=== PATIENT | female | born 1970 | race Caucasian/White ===

== ENCOUNTER 2020-03-15 02:09 | Emergency (ER) | payer BC, OTHER ==
[~2020-03-15] VITALS: Ht 175.3 cm; Wt 149.7 kg
[~2020-03-15 02:09] MED LIST: FERROUS SULFAT325 MG PO; GLIPIZIDE ER5 MG PO; LEVAQUIN500 MG PO; LEVOTHYROXINE200 MCG PO; LISINOPRIL10 MG PO; NORCO 7.5-3251 EACH PO
[2020-03-15] MEDS ORDERED: KETOROLAC TROMETHAMINE 30 MG/ML VIAL IV STA (02:16)
--- NOTE | 2020-03-15 02:23 | Emergency Department Note ---
History of Present Illnes History of Present Illness Chief Complaint: Back Pain History of Present Illness This is a 49 year old female presents to the ED for . Historian: Patient Duration (how long): day(s) (3) Progression: worsening Context: Denies recent illness, Denies recent surgery, Denies recent immobilization, Denies recent travel, Denies trauma/injury, Denies new medications, Denies hx of DVT/PE, Denies non-compliance w/ medications, Denies other Associated symptoms: Denies denies other symptoms, Denies confusion, Denies chest pain, Denies cough, Denies diaphoresis, Denies fever/chills, Denies headaches, Denies loss of appetite, Denies malaise, Denies nausea/vomiting, Denies rash, Denies seizure, Denies shortness of breath, Denies syncope, Denies weakness, Denies other Past Medical/Family History Physician Review I have reviewed the patient's past medical and family history. Any updates have been documented here. Past Medical History Recent Fever: No Clinical Suspicion of Infectio: No New/Unexplained Change in Ment: No Past Medical History: Diabetes, Hypothyroidism, Anemia Past Surgical History: Cholecysctectomy Social History Smoking Cessation: Never Smoker Alcohol Use: None Any Illegal Drug Use: No Other Last Tetanus: UTD Review of Systems Review of Systems Constitutional: Reports no symptoms EENTM: Reports no symptoms Cardiovascular: Reports no symptoms Respiratory: Reports no symptoms Gastrointestinal: Reports no symptoms Genitourinary: Reports pain (L flank pain) Musculoskeletal: Reports no symptoms Integumentary: Reports no symptoms Neurological: Reports no symptoms Psychological: Reports no symptoms Endocrine: Reports no symptoms Hematological/Lymphatic: Reports no symptoms Physical Exam Related Data Allergies: Coded Allergies: No Known Allergies (Unverified , 08/12/18) Triage Vital Signs Vital Signs Date Time Temp Pulse Resp B/P (MAP) Pulse Ox O2 Delivery O2 Flow Rate FiO2 03/15/20 02:17 98.3 86 20 186/93 97 Room Air Vital signs reviewed: Yes Physical Exam CONSTITUTIONAL Constitutional: Present well-developed, Present well-nourished HENT HENT: Present normocephalic, Present atraumatic, Present oropharynx clear/moist, Present nose normal HENT L/R: Present left ext ear normal, Present right ext ear normal EYES Eyes: Reports PERRL, Reports conjunctivae normal NECK Neck: Present ROM normal PULMONARY Pulmonary: Present effort normal, Present breath sounds normal CARDIOVASCULAR Cardiovascular: Present regular rhythm, Present heart sounds normal, Present capillary refill normal, Present normal rate GASTROINTESTINAL Abdominal: Present soft, Present bowel sounds normal, Present tender GENITOURINARY Genitourinary: Present exam deferred SKIN Skin: Present warm, Present dry MUSCULOSKELETAL Musculoskeletal: Present ROM normal NEUROLOGICAL Neurological: Present alert, Present oriented x 3, Present no gross motor or sensory deficits PSYCHOLOGICAL Psychological: Present mood/affect normal, Present judgement normal Results Laboratory Lab results reviewed: Yes Laboratory comments CBC : elevated WBC , CMP : Na 128 Imaging Imaging results reviewed: Yes Impressions [place] [address] Patient Name: PK JONES MR #: [id number] : 1970 Age/Sex: 49/F Req #: [id number] Adm Physician: Ordered by: MARCELLO ROMERO DO Report #: [id number] Location: ER Room/Bed: Procedure: [id number] CT/CT ABDOMEN/PELVIS WO Exam Date: 03/15/20 Exam Time: 314 REPORT STATUS: Signed EXAM: CT Abdomen and Pelvis WITHOUT contrast INDICATION: ^l flank pain ^[id number] ^[id number] COMPARISON: Right upper quadrant ultrasound dated 08/12/2018 TECHNIQUE: Abdomen and pelvis were scanned utilizing a multidetector helical scanner from the lung base to the pubic symphysis without administration of IV contrast. Absence of intravenous contrast decreases sensitivity for detection of focal lesions and vascular pathology. Coronal and sagittal reformations were obtained. Routine protocol was performed. IV CONTRAST: None ORAL CONTRAST: Water COMPLICATIONS: None RADIATION DOSE: Total DLP: 805.72 mGy*cm Estimated effective dose: (DLP x 0.015 x size factor) mSv CTDIvol has been reviewed. It is below the limits set by the Radiation Protocol Committee (RPC). FINDINGS: LINES and TUBES: None. LOWER THORAX: Numerous lung nodules, measuring up to 1.1 cm. HEPATOBILIARY: Unenhanced liver is unremarkable. Enlarged left hepatic lobe. No biliary ductal dilation. GALLBLADDER: Not visualized. SPLEEN: Splenomegaly. PANCREAS: No focal masses or ductal dilatation. ADRENALS: No adrenal nodules KIDNEYS/URETERS: No hydronephrosis. Limited for evaluation of renal parenchyma without intravenous contrast. No stones. GI TRACT: No abnormal distention, wall thickening, or evidence of bowel obstruction. Appendix is normal. PELVIC ORGANS/BLADDER: Bladder is collapsed. Uterus is enlarged and probably myomatous. LYMPH NODES: Enlarged retroperitoneal and iliac chain lymph nodes. For example 1.8 cm left para-aortic lymph node. VESSELS: Unremarkable. PERITONEUM / RETROPERITONEUM: No free air. Trace perihepatic ascites. BONES: Degenerative changes of spine. Age indeterminate mild anterior wedge deformity of T11 and T12 vertebral bodies. SOFT TISSUES: Unremarkable. IMPRESSION: 1. No nephrolithiasis or evidence of obstructive urolithiasis. 2. Suspected mild cirrhotic changes of the liver with splenomegaly and trace perihepatic ascites. Evaluation of liver parenchyma is limited without intravenous contrast. 3. Enlarged probably myomatous uterus. 4. Numerous lung nodules, measuring up to 1.1 cm. Recommend follow-up chest CT in 3 months. 5. Retroperitoneal and iliac chain lymphadenopathy which could be reactive or metastatic. Attention on follow-up examination. Signed by: Dr. Luis Kearney MD on 03/15/2020 4:07 AM Dictated By: LUIS KEARNEY MD 6 Transcribed By: KAYLEY on 03/15/20406 COPY TO: MARCELLO ROMERO DO~ Assessment & Plan Medical Decision Making MDM Diff Dx : UTI, kidney stone, sciatica. Findings non-specific were d/w patient. Patient instructed to f/u with PCP in a timely manner Assessment & Plan Final Impression: (1) Sciatica (2) Hyponatremia Depart Disposition: HOME, SELF-CARE Last Vital Signs Date Time Temp Pulse Resp B/P (MAP) Pulse Ox O2 Delivery O2 Flow Rate FiO2 03/15/20 02:17 98.3 86 20 186/93 97 Room Air Home Meds Reported Medications Levofloxacin (LEVAQUIN) 500 Mg Tablet, 500 MG PO DAILY, #5 TAB 08/19/18 Hydrocodone Bit/Acetaminophen (NORCO 7.5-325 TABLET) 1 Each Tablet, 1 EA PO Q4HR PRN for PAIN, #30 TAB 08/19/18 Ferrous Sulfate (FERROUS SULFATE) 325 Mg Tablet, 325 MG PO .EVERY OTHER DAY 08/12/18 Glipizide (GLIPIZIDE ER) 5 Mg Tab.er.24, 5 MG PO DAILY 08/12/18 Lisinopril (LISINOPRIL) 10 Mg Tablet, 10 MG PO DAILY 08/12/18 Levothyroxine Sodium (LEVOTHYROXINE SODIUM) 200 Mcg Tablet, 200 MCG PO DAILY 08/12/18 MARCELLO ROMERO DO Mar 15, 2020 02:23
[2020-03-15] MEDS ORDERED: ONDANSETRON HCL INJ 2MG/ML 2ML 2 MG/ML VIAL IV STA (02:33)
[2020-03-15 02:37] LABS: BASOPHILS # (AUTO) 0.1 (0.0-0.1); BASOPHILS % 0.5 % (0.0-1.0); EOSINOPHILS # (AUTO) 0.1 (0.0-0.4); EOSINOPHILS % 0.6 % (0.0-6.0); HEMOGLOBIN 8.6 g/dL (12.0-16.0); LYMPHOCYTES % 6.1 % (18.0-39.1); MEAN CORPUSCULAR HEMOGLOBIN 21.4 pg (28-32); MEAN CORPUSCULAR HGB CONC 28.7 g/dL (31-35); MEAN CORPUSCULAR VOLUME 74.6 fL (81-99); MONOCYTES # (AUTO) 1.5 (0.2-0.8); MONOCYTES % 9.2 % (4.4-11.3); NEUTROPHILS # (AUTO) 13.2 (2.1-6.9); NEUTROPHILS % 82.5 % (38.7-80.0); PLATELET COUNT 422 x10e3/uL (140-360); RED BLOOD COUNT 4.02 x10e6/uL (3.6-5.1); RED CELL DISTRIBUTION WIDTH 18.3 % (11.7-14.4)
[2020-03-15 02:38] LABS: BILIRUBIN,URINE SMALL (NEGATIVE); CLARITY,URINE CLEAR (CLEAR); COLOR,URINE YELLOW (YELLOW); KETONES,URINE NEGATIVE (NEGATIVE); LEUKOCYTE ESTERASE ,URINE NEGATIVE (NEGATIVE); NITRITE,URINE NEGATIVE (NEGATIVE); PROTEIN,URINE DIPSTICK >=300 (NEGATIVE); URINE UROBILINOGEN 1 mg/dL (0.2 - 1)
[2020-03-15 02:42] LABS: BACTERIA,URINE FEW /HPF; EPITHELIAL CELLS,URINE MODERATE /LPF; WBC,URINE (MAN) 0-5 /HPF (0-5)
[2020-03-15 02:43] LABS: AMORPHOUS SEDIMENT,URINE FEW (FEW)
[2020-03-15] MEDS ORDERED: SODIUM CHLORIDE 0.9% 1000ML 1,000 ML ONE (02:43)
[2020-03-15] MEDS ORDERED: SODIUM CHLORIDE 0.9% 1000ML 1,000 ML IV ONE (02:45)
[2020-03-15 02:55] LABS: ALBUMIN/GLOBULIN RATIO 1.1 (0.8-2.0); ANION GAP 17.3 mmol/L (8-16); CALCIUM 8.9 mg/dL (8.4-10.2); CREATININE, SERUM 1.77 mg/dL (0.57-1.11); POTASSIUM 4.3 mmol/L (3.5-5.1)
[2020-03-15] MEDS ORDERED: MORPHINE SULFATE INJ 4 MG/ML INJ 1ML IV STA (03:24)
[2020-03-15] MEDS ORDERED: MORPHINE SULFATE INJ 4 MG/ML INJ 1ML ONE (03:40)
--- NOTE | 2020-03-15 04:10 | Diagnostic Imaging Report ---
EXAM: CT Abdomen and Pelvis WITHOUT contrast INDICATION: ^l flank pain ^[id number] ^[id number] COMPARISON: Right upper quadrant ultrasound dated 08/12/2018 TECHNIQUE: Abdomen and pelvis were scanned utilizing a multidetector helical scanner from the lung base to the pubic symphysis without administration of IV contrast. Absence of intravenous contrast decreases sensitivity for detection of focal lesions and vascular pathology. Coronal and sagittal reformations were obtained. Routine protocol was performed. IV CONTRAST: None ORAL CONTRAST: Water COMPLICATIONS: None RADIATION DOSE: Total DLP: 805.72 mGy*cm Estimated effective dose: (DLP x 0.015 x size factor) mSv CTDIvol has been reviewed. It is below the limits set by the Radiation Protocol Committee (RPC). FINDINGS: LINES and TUBES: None. LOWER THORAX: Numerous lung nodules, measuring up to 1.1 cm. HEPATOBILIARY: Unenhanced liver is unremarkable. Enlarged left hepatic lobe. No biliary ductal dilation. GALLBLADDER: Not visualized. SPLEEN: Splenomegaly. PANCREAS: No focal masses or ductal dilatation. ADRENALS: No adrenal nodules KIDNEYS/URETERS: No hydronephrosis. Limited for evaluation of renal parenchyma without intravenous contrast. No stones. GI TRACT: No abnormal distention, wall thickening, or evidence of bowel obstruction. Appendix is normal. PELVIC ORGANS/BLADDER: Bladder is collapsed. Uterus is enlarged and probably myomatous. LYMPH NODES: Enlarged retroperitoneal and iliac chain lymph nodes. For example 1.8 cm left para-aortic lymph node. VESSELS: Unremarkable. PERITONEUM / RETROPERITONEUM: No free air. Trace perihepatic ascites. BONES: Degenerative changes of spine. Age indeterminate mild anterior wedge deformity of T11 and T12 vertebral bodies. SOFT TISSUES: Unremarkable. IMPRESSION: 1. No nephrolithiasis or evidence of obstructive urolithiasis. 2. Suspected mild cirrhotic changes of the liver with splenomegaly and trace perihepatic ascites. Evaluation of liver parenchyma is limited without intravenous contrast. 3. Enlarged probably myomatous uterus. 4. Numerous lung nodules, measuring up to 1.1 cm. Recommend follow-up chest CT in 3 months. 5. Retroperitoneal and iliac chain lymphadenopathy which could be reactive or metastatic. Attention on follow-up examination. Signed by: Dr. Luis Kearney MD on 03/15/2020 4:07 AM
[2020-03-15 04:17] VITALS: BP 164/72
[2020-03-15] MEDS ORDERED: FAMOTIDINE 20 MG/2 ML VIAL IV STA (04:18)
[2020-03-15] MEDS ORDERED: FAMOTIDINE 20 MG/2 ML VIAL IV ONE (04:29)
--- OUTSIDE RECORDS SUMMARY | 2020-03-16 16:33 | XMS REPORT | Continuity of Care Document ---
Author Author [facility] t Organization [facility] Address [facility] [address] [place] [address] Phone Unavailable Care Team Providers Care Scheduling Analyst Name Role Phone DO STACEY MCKEON DO PCP ROMERO MARCELLO Attphys Unavailable MEDEIROS, SOUHEIL Attphys Unavailable MEDEIROS, SOUHEIL Admphys Unavailable Payers Payer Name Policy Type Policy Number Effective Date Expiration Date S sarina [employer] Ppo [id number] 2020 00:00:00 [facility] [employer] Pos [id number] 2017 00:00:00 [facility] Problems Condition Name Condition Details Condition Category Status Onset Date Resolution Date Last Treatment Date Treating Clinician Comments Source Cholecystitis Cholecystitis Problem Active [facility] Multiple gallstones Problem Active [facility] Pancreatitis due to biliary obstruction Problem Active [facility] Allergies, Adverse Reactions, Alerts This patient has no known allergies or adverse reactions. Social History Social Habit Start Date Stop Date Quantity Comments Source Sex Assigned At 1970 00:00:00 1970 00:00:00 Female [facility] Medications Ordered Medication Name Filled Medication Name Start Date Stop Da te Current Medication? Ordering Clinician Indication Dosage Frequency Signature (SIG) Comments Components Source Ferrous Sulfate Ferrous Sulfate Yes 325 .every O ther Day [facility] Glipizide (Glipizide Er) 5 Mg TAB.ER.24 Glipizide (Glipizide Er) 5 Mg TAB.ER.24 Yes 5 Daily [facility] Hydrocodone Bit/Acetaminophen (Hernando 7.5-325 Tablet) 1 Each TABLET Hydrocodone Bit/Acetaminophen (Hernando 7.5-325 Tablet) 1 Each TABLET Yes 1 Every 4 Hours as needed for Pain [facility] Levofloxacin (Levaquin) 500 Mg TABLET Levofloxacin (Levaquin) 500 M g TABLET Yes 500 Daily [facility] Levothyroxine Sodium Levothyroxine Sodium Yes 200 Daily [facility] Lisinopril Lisinopril Yes 10 Daily [facility] Vital Signs Vital Name Observation Time Observation Value Comments Source Weight 2020-03-15 02:17:00 330 [lb_av] [facility] BMI (Body Mass Index) 2020-03-15 02:17:00 48.7 kg/m2 [facility] Procedures Procedure Date / Time Performed Performing Clinician [facility] e CT of abdomen and pelvis without contrast 2020-03-15 00:00:00 [facility] Plan of Care Planned Activity Planned Date Details Comments Source Instructions Sciatica [facility] Instructions Back Pain [facility] Instructions Lymphadenopathy [facility] Encounters Start Date/Time End Date/Time Encounter Type Admission Type [facility] Care Department Encounter ID Source 2020-03-15 02:18:00 2020-03-15 04:36:00 Departed Emergency Room 1 MARCELLO ROMERO [facility] [id number] [facility] 2018-08-12 06:03:00 2018-08-19 14:53:00 Discharged Inpatient 1 MITCHELL MEDEIROS [facility] [id number] [facility] Results Test Description Test Time Test Comments Results Result Comments Source CT ABDOMEN/PELVIS WO 2020-03-15 03:55:00 [place] [id number] Patient Name: PK JONES MR #: [id number] : 1970 Age/Sex: 49/F Req #: [id number] Adm Physician: Ordered by: MARCELLO ROMERO DO Report #: [id number] Location: ER Room/Bed: Procedure: [id number] CT/CT ABDOMEN/PELVIS WO Exam Date: 03/15/20 Exam Time: 314 REPORT STATUS: Signed EXAM: CT Abdomen and Pelvis WITHOUT contrast INDICATION: l flank pain [id number] COMPARISON: Right upper quadrant ultrasound dated 08/12/2018 TECHNIQUE: Abdomen and pelvis were scanned utilizing a multidetector helical scanner from the gumaro ng base to the pubic symphysis without administration of IV contrast. Absence of intravenous contrast decreases sensitivity for detection of focal lesions and vascular pathology. Coronal and sagittal reformations were obtained. Routine protocol was performed. IV CONTRAST: None ORAL CONTRAST: Water COMPLICATIONS: None RADIATION DOSE: Total DLP: 805.72 mGy*cm Estimated effective dose: (DLP x 0.015 x size factor) mSv CTDIvol has been reviewed. It is below the limits set by the Radiation Protocol Committee (RPC). FINDINGS: LINES and TUBES: None. LOWER THORAX: Numerous lung nodules, measuring up to 1.1 cm. HEPATOBILIARY: Unenhanced liver is unremarkable. Enlarged left hepatic lobe. No biliary ductal dilation. GALLBLADDER: Not visualized. SPLEEN: Splenomegaly. PANCREAS: No focal masses or ductal dilatation. ADRENALS: No adrenal nodules KIDNEYS/URETERS: No hydronephrosis. Limited for evaluation of renal parenchyma without intravenous contrast. No stones. GI TRACT: No abnormal distention, wall thickening, or evidence of bowel obstruction. Appendix is normal. PELVIC ORGANS/BLADDER: Bladder is collapsed. Uterus is enlarged and probably myomatous. LYMPH NODES: Enlarged retroperitoneal and iliac chain lymph nodes. For example 1.8 cm left para-aortic lymph node. VESSELS: Unremarkable. PERITONEUM / RETROPERITONEUM: No free air. Trace perihepatic ascites. BONES: Degenerative changes of spine. Age indeterminate mild anterior wedge deformity of T11 and T12 vertebral bodies. SOFT TISSUES: Unremarkable. IMPRESSION: 1. No nephrolithiasis or evidence of obstructive urolithiasis. 2. Suspected mild cirrhotic changes of the liver with splenomegaly and trace perihepatic ascites. Evaluation of liver parenchyma is limited without intravenous contrast. 3. Enlarged probably myomatous uterus. 4. Numerous lung nodules, measuring up to 1.1 cm. Recommend follow-up chest CT in 3 months. 5. Retroperitoneal and iliac chain lymphadenopathy which could be reactive or metastatic. Attention on follow-up examination. Signed by: Dr. Luis Watkins MD on 03/15/2020 4:07 AM Dictated By: LUIS WATKINS MD 6 Transcribed By: KAYLEY on 03/15/20406 COPY TO: MARCELLO ROMERO DO Blood leukocytes automated count (number/volume) 2020-03-15 02:32:00 Test Item White Blood Count (test code = 6690-2) 15.94 4.8-10.8 [facility] count (number/volume)2020-03-15 02:32:00* Test Item Value Reference Range Interpretation Comments Red Blood Count (test code = 789-8) 4.02 3.6-5.1 [facility] hemoglobin measurement (moles/volume)2020-03-15 02:32:00* Test Item Value Reference Range Interpretation Comments Hemoglobin (test code = 70566-5) 8.6 12.0-16.0 [facility] HospitalAutomated blood hematocrit (volume fraction)2020-03-15 02:32:00* Test Item Value Reference Range Interpretation Comments Hematocrit (test code = 4544-3) 30.0 34.2-44.1 [facility] HospitalAutomated erythrocyte mean corpuscular ykdqes6767-98-44 02:32:00* Test Item Value Reference Range Interpretation Comments Mean Corpuscular Volume (test code = 787-2) 74.6 81-99 [facility] HospitalAutomated erythrocyte mean corpuscular hemoglobin (mass per erythrocyte)2020-03-15 02:32:00* Test Item Value Reference Range Interpretation Comments Mean Corpuscular Hemoglobin (test code = 785-6) 21.4 28-32 [facility] HospitalAutomated erythrocyte mean corpuscular hemoglobin concentration measurement (mass/volume)2020-03-15 02:32:00* Test Item Value Reference Range Interpretation Comments Mean Corpuscular Hemoglobin Concent (test code = 786-4) 28.7 31-35 [facility] HospitalRDW AfeSm-Wqo8117-60-26 02:32:00* Test Item Value Reference Range Interpretation Comments Red Cell Distribution Width (test code = 47451-4) 18.3 11.7 -14.4 [facility] HospitalAutom[facility] blood platelet count (count/volume)2020-03-15 02:32:00* Test Item Value Reference Range Interpretation Comments Platelet Count (test code = 777-3) 422 140-360 [facility]Autom[facility] blood segmented neutrophil count as percentage of total bubkdwyvlk6947-18-59 02:32:00* Test Item Value Reference Range Interpretation Comments Neutrophils (%) (Auto) (test code = 27200-9) 82.5 38.7-80.0 [facility] HospitalAutomated blood lymphocyte count as percentage ot total focfwjrxya3615-68-61 02:32:00* Test Item Value Reference Range Interpretation Comments Lymphocytes (%) (Auto) (test code = 736-9) 6.1 18.0-39.1 [facility] HospitalAutomated blood monocyte count as percentage of total hgvaeohyrr7376-07-28 02:32:00* Test Item Value Reference Range Interpretation Comments Monocytes (%) (Auto) (test code = 5905-5) 9.2 4.4-11.3 [facility] HospitalAutomated blood eosinophil count as percentage of total smaogqakad6576-02-79 02:32:00* Test Item Value Reference Range Interpretation Comments Eosinophils (%) (Auto) (test code = 713-8) 0.6 0.0-6.0 [facility] HospitalAutomated blood basophil count as percentage of total ijzlrpenye6191-03-66 02:32:00* Test Item Value Reference Range Interpretation Comments Basophils (%) (Auto) (test code = 706-2) 0.5 0.0-1.0 [facility] HospitalFluoroscopic procedure less than one hour iwhgaqfg8432-78-62 02:32:00* Test Item Value Reference Range Interpretation Comments IM GRANULOCYTES % (test code = IM GRANULOCYTES %) 1.1 0.0- 1.0 [facility] HospitalAutomated blood neutrophil count 2020-03-15 02:32:00* Test Item Value Reference Range Interpretation Comments Neutrophils # (Auto) (test code = 751-8) 13.2 2.1-6.9 [facility]Blood lymphocytes count (number/volume) 2020-03-15 02:32:00* Test Item Value Reference Range Interpretation Comments Lymphocytes # (Auto) (test code = 32317-4) 1.0 1.0-3.2 [facility] HospitalBlood monocytes automated count (number/volume)2020-03-15 02:32:00* Test Item Value Reference Range Interpretation Comments Monocytes # (Auto) (test code = 742-7) 1.5 0.2-0.8 [facility] HospitalAutomated blood eosinophil count 2020-03-15 02:32:00* Test Item Value Reference Range Interpretation Comments Eosinophils # (Auto) (test code = 711-2) 0.1 0.0-0.4 [facility] HospitalAutomated blood basophil count (count/volume)2020-03-15 02:32:00* Test Item Value Reference Range Interpretation Comments Basophils # (Auto) (test code = 704-7) 0.1 0.0-0.1 [facility] HospitalFluoroscopic procedure less than one hour lojnigie8150-49-28 02:32:00* Test Item Value Reference Range Interpretation Comments Absolute Immature Granulocyte (auto (amanda t code = Absolute Immature Granulocyte (auto) 0.18 0-0.1 [facility]um or plasma sodium measurement (moles/volume)2020-03-15 02:32:00* Test Item Value Reference Range Interpretation Comments Sodium Level (test code = 2951-2) 128 136-145 [facility] Texaserum or plasma potassium measurement (moles/volume)2020-03-15 02:32:00* Test Item Value Reference Range Interpretation Comments Potassium Level (test code = 2823-3) 4.3 3.5-5.1 [facility] Texaserum or plasma chloride measurement (moles/volume)2020-03-15 02:32:00* Test Item Value Reference Range Interpretation Comments Chloride Level (test code = 2075-0) 93 98-107 [facility] Texaserum or plasma carbon dioxide, total measurement (moles/volume)2020-03-15 02:32:00* Test Item Value Reference Range Interpretation Comments Carbon Dioxide Level (test code = 2028-9) 22 22-29 [facility] Texaserum or plasma anion hgs1316-60-74 02:32:00* Test Item Value Reference Range Interpretation Comments Anion Gap (test code = 09369-3) 17.3 8-16 [facility] Texaserum or plasma urea nitrogen measurement (mass/volume)2020-03-15 02:32:00* Test Item Value Reference Range Interpretation Comments Blood Urea Nitrogen (test code = 3094-0) 22 7-26 [facility] Texaserum or plasma creatinine measurement (mass/volume)2020-03-15 02:32:00* Test Item Value Reference Range Interpretation Comments Creatinine (test code = 2160-0) 1.77 0.57-1.11 [facility] Texaserum or plasma urea nitrogen/creatinine mass bfnmv8081-63-70 02:32:00* Test Item Value Reference Range Interpretation Comments BUN/Creatinine Ratio (test code = 3097-3) 12 6-25 [facility] HospitalEstimated glomerular filtration rate (GFR) ijgvotiwwbale4764-15-65 02:32:00* Test Item Value Reference Range Interpretation Comments Estimat Glomerular Filtration Rate (test code = 126958090) 30 >60 Ranges were taken from the National Kidney Disease Education Program and the [employer] [facility] [employer] literature.Reference ranges:60 or greater: Scsnlg92-97 ( for 3 consecutive months): Chronic kidney disease 15 or less: Kidney failureMethodist McKinney HospitalGlucose qdfwgcvnnju9316-94-42 02:32:00* Test Item Value Reference Range Interpretation Comments Glucose Level (test code = PXR0788) 165 74-118 [facility] Texaserum or plasma calcium measurement (mass/volume)2020-03-15 02:32:00* Test Item Value Reference Range Interpretation Comments Calcium Level (test code = 45223-0) 8.9 8.4-10.2 [facility] Texaserum or plasma total bilirubin measurement (mass/volume)2020-03-15 02:32:00* Test Item Value Reference Range Interpretation Comments Total Bilirubin (test code = 1975-2) 0.6 0.2-1.2 [facility] HospitalFluoroscopic procedure less than one hour xajewuor8509-72-84 02:32:00* Test Item Value Reference Range Interpretation Comments Aspartate Amino Transf (AST/SGOT) (test code = Aspartate Amino Transf (AST/SGOT)) 25 5-34 [facility] Texaserum or plasma alanine aminotransferase measurement (enzymatic activity/volume)2020-03-15 02:32:00* Test Item Value Reference Range Interpretation Comments Alanine Aminotransferase (ALT/SGPT) (test code = 1742-6) 11 0-55 [facility] Texaserum or plasma protein measurement (mass/volume)2020-03-15 02:32:00* Test Item Value Reference Range Interpretation Comments Total Protein (test code = 2885-2) 7.7 6.5-8.1 [facility] Texaserum or plasma albumin measurement (mass/volume)2020-03-15 02:32:00* Test Item Value Reference Range Interpretation Comments Albumin (test code = 1751-7) 4.0 3.5-5.0 [facility] HospitalPlasma globulin measurement (mass/volume) 2020-03-15 02:32:00* Test Item Value Reference Range Interpretation Comments Globulin (test code = 54364-6) 3.7 2.3-3.5 [facility] Texaserum or plasma albumin/globulin mass ikobr4938-01-65 02:32:00* Test Item Value Reference Range Interpretation Comments Albumin/Globulin Ratio (test code = 1759-0) 1.1 0.8-2.0 [facility]erum or plasma alkaline phosphatase measurement (enzymatic activity/volume)2020-03-15 02:32:00* Test Item Value Reference Range Interpretation Comments Alkaline Phosphatase (test code = 6768-6) 77 40-150 [facility] HospitalUrine color txqoalridxbbp1165-52-16 02:17:00* Test Item Value Reference Range Interpretation Comments Urine Color (test code = 5778-6) YELLOW YELLOW [facility] HospitalUrine gzrmfgm6158-41-97 02:17:00* Test Item Value Reference Range Interpretation Comments Urine Clarity (test code = 46685-4) CLEAR CLEAR [facility] Texaspecific gravity of Urine by Test strip 2020-03-15 02:17:00* Test Item Value Reference Range Interpretation Comments Urine Specific [place] (test code = 5811-5) 1.025 1.010-1.02 5 [facility] HospitalUrine pH measurement by automated test ttajb9727-43-50 02:17:00* Test Item Value Reference Range Interpretation Comments Urine pH (test code = 72313-2) 5.5 5-7 [facility] HospitalUrine leukocyte esterase detection by qtdloenu7090-76-95 02:17:00* Test Item Value Reference Range Interpretation Comments Urine Leukocyte Esterase (test code = 5799-2) NEGATIVE NEGATIVE [facility] HospitalUrine nitrite hwxvitnai1293-57-93 02:17:00* Test Item Value Reference Range Interpretation Comments Urine Nitrite (test code = 62435-2) NEGATIVE NEGATIVE [facility] HospitalUrine protein measurement by test strip (mass/volume)2020-03-15 02:17:00* Test Item Value Reference Range Interpretation Comments Urine Protein (test code = 5804-0) >=300 NEGATIVE [facility] HospitalUrine glucose mkhdloguy8084-52-40 02:17:00* Test Item Value Reference Range Interpretation Comments Urine Glucose (UA) (test code = 2349-9) NEGATIVE NEGATIVE [facility] HospitalUrine ketones detection by automated test umfuj6550-48-71 02:17:00* Test Item Value Reference Range Interpretation Comments Urine Ketones (test code = 38666-9) NEGATIVE NEGATIVE [facility] HospitalUrine urobilinogen measurement by test strip (mass/volume)2020-03-15 02:17:00* Test Item Value Reference Range Interpretation Comments Urine Urobilinogen (test code = 76377-4) 1 0.2-1 [facility] HospitalUrine total bilirubin measurement (mass/volume)2020-03-15 02:17:00* Test Item Value Reference Range Interpretation Comments Urine Bilirubin (test code = 1978-6) SMALL NEGATIVE [facility] HospitalUrine erythrocytes zpsgdasew5666-60-12 02:17:00* Test Item Value Reference Range Interpretation Comments Urine Blood (test code = 06791-9) MODERATE NEGATIVE [facility] HospitalAutomated urine sediment leukocyte count by microscopy (number/high power field)2020-03-15 02:17:00* Test Item Value Reference Range Interpretation Comments Urine WBC (test code = 5821-4) 0-5 0-5 [facility] HospitalErythrocytes detection in urine sediment by light doqnvwnctk4105-66-01 02:17:00* Test Item Value Reference Range Interpretation Comments Urine RBC (test code = 74288-1) 6-10 0-5 [facility] HospitalBacteria detection in urine sediment by light bqnngmnijm8565-18-20 02:17:00* Test Item Value Reference Range Interpretation Comments Urine Bacteria (test code = 91779-6) FEW NONE [facility] HospitalEpithelial cells detection in urine sediment by light wulakqbgjr9768-82-87 02:17:00* Test Item Value Reference Range Interpretation Comments Urine Epithelial Cells (test code = 36499-6) MODERATE NONE [facility] HospitalAmorphous sediment detection in urine sediment by light dmzwygjgre5756-71-95 02:17:00* Test Item Value Reference Range Interpretation Comments Urine Amorphous Sediment (test code = 8246-1) FEW FEW [facility] HospitalBedside Oaqnnjw7409-70-36 12:25:00* Test Item Value Reference Range Interpretation Comments Bedside Glucose (test code = 19253-7) 176 70-120 H Meter ID: [id number] McKinney HospitalUrine UNF8430-85-66 16:50:00* Test Item Value Reference Range Interpretation Comments Urine WBC (test code = 5821-4) NONE 0-5 [facility] HospitalUrine BYU0156-32-80 16:50:00* Test Item Value Reference Range Interpretation Comments Urine RBC (test code = 95469-7) 11-20 0-5 H [facility] HospitalUrine Kjnvkyki8864-63-38 16:50:00* Test Item Value Reference Range Interpretation Comments Urine Bacteria (test code = 39462-5) MODERATE NONE H [facility] HospitalUrine Epithelial Zreos8159-41-88 16:50:00 * Test Item Value Reference Range Interpretation Comments Urine Epithelial Cells (test code = 40898-8) MODERATE NONE [facility] HospitalUrine Eqysq2527-19-56 16:38:00* Test Item Value Reference Range Interpretation Comments Urine Color (test code = 5778-6) YELLOW YELLOW [facility] HospitalUrine Rcgptpu9135-88-52 16:38:00* Test Item Value Reference Range Interpretation Comments Urine Clarity (test code = 77076-2) SL CLOUDY CLEAR [facility] HospitalUrine Specific Sbjrivw2202-09-40 16:38:00 * Test Item Value Reference Range Interpretation Comments Urine Specific [place] (test code = 5811-5) 1.030 1.010-1.02 5 H [facility] HospitalUrine bQ6440-06-69 16:38:00* Test Item Value Reference Range Interpretation Comments Urine pH (test code = 62188-7) 6 5-7 [facility] HospitalUrine Leukocyte Pnlzndha7432-87-26 16:38:00* Test Item Value Reference Range Interpretation Comments Urine Leukocyte Esterase (test code = 5799-2) NEGATIVE NEGATIVE [facility] HospitalUrine Tlwnnuz3546-16-43 16:38:00* Test Item Value Reference Range Interpretation Comments Urine Nitrite (test code = 11009-2) NEGATIVE NEGATIVE [facility] HospitalUrine Cejibco0907-28-98 16:38:00* Test Item Value Reference Range Interpretation Comments Urine Protein (test code = 5804-0) 2+ NEGATIVE H [facility] HospitalUrine Glucose (UA)2018-08-18 16:38:00* Test Item Value Reference Range Interpretation Comments Urine Glucose (UA) (test code = 2349-9) NEGATIVE NEGATIVE [facility] HospitalUrine Gomlppq3385-95-85 16:38:00* Test Item Value Reference Range Interpretation Comments Urine Ketones (test code = 05480-5) TRACE NEGATIVE H [facility] HospitalUrine Sqtqxamlggrz0562-64-16 16:38:00* Test Item Value Reference Range Interpretation Comments Urine Urobilinogen (test code = 38846-8) 0.2 0.2-1 [facility] HospitalUrine Dirzgeslx0765-77-86 16:38:00* Test Item Value Reference Range Interpretation Comments Urine Bilirubin (test code = 1978-6) 1+ NEGATIVE H [facility] HospitalUrine Dffxu0342-16-62 16:38:00* Test Item Value Reference Range Interpretation Comments Urine Blood (test code = 84995-3) 4+ NEGATIVE H [facility] Texasodium Kotbf8171-56-17 06:21:00* Test Item Value Reference Range Interpretation Comments Sodium Level (test code = 2951-2) 140 136-145 [facility] HospitalPotassium Qikai7017-72-05 06:21:00* Test Item Value Reference Range Interpretation Comments Potassium Level (test code = 2823-3) 3.3 3.5-5.1 L [facility] HospitalChloride Kfomk1251-20-82 06:21:00* Test Item Value Reference Range Interpretation Comments Chloride Level (test code = 2075-0) 112 98-107 H [facility] HospitalCarbon Dioxide Qbkjj6589-71-31 06:21:00* Test Item Value Reference Range Interpretation Comments Carbon Dioxide Level (test code = 2028-9) 23 22-29 [facility] HospitalAnion Jwd4485-18-96 06:21:00* Test Item Value Reference Range Interpretation Comments Anion Gap (test code = 25259-8) 8.3 8-16 [facility] HospitalBlood Urea Hxziybag9294-78-21 06:21:00* Test Item Value Reference Range Interpretation Comments Blood Urea Nitrogen (test code = 3094-0) 16 7-26 [facility] HospitalCreatinine2019-03-01 06:21:00* Test Item Value Reference Range Interpretation Comments Creatinine (test code = 2160-0) 0.82 0.57-1.11 [facility] HospitalBUN/Creatinine Zybqw1068-96-24 06:21:00* Test Item Value Reference Range Interpretation Comments BUN/Creatinine Ratio (test code = 3097-3) 20 6-25 [facility] HospitalEstimat Glomerular Filtration Rate 2018-08-18 06:21:00* Test Item Value Reference Range Interpretation Comments Estimat Glomerular Filtration Rate (test code = 555697864) > 60 >60 Ranges were taken from the National Kidney Disease Education Program and the [facility] [employer] literature.Reference ranges:60 or greater: Saubqs35-87 ( for 3 consecutive months): Chronic kidney disease 15 or less: Kidney failureMethodist McKinney HospitalGlucose Ztomy6427-49-06 06:21:00* Test Item Value Reference Range Interpretation Comments Glucose Level (test code = YGU6245) 190 74-118 H [facility] HospitalCalcium Syboh9180-44-93 06:21:00* Test Item Value Reference Range Interpretation Comments Calcium Level (test code = 54821-9) 7.8 8.4-10.2 L [facility] HospitalTotal Ohivsfkpd2334-23-88 06:21:00* Test Item Value Reference Range Interpretation Comments Total Bilirubin (test code = 1975-2) 0.8 0.2-1.2 [facility] HospitalAspartate Amino Transf (AST/SGOT) 2018-08-18 06:21:00* Test Item Value Reference Range Interpretation Comments Aspartate Amino Transf (AST/SGOT) (test code = Aspartate Amino Transf (AST/SGOT)) 20 5-34 [facility] HospitalAlanine Aminotransferase (ALT/SGPT) 2018-08-18 06:21:00* Test Item Value Reference Range Interpretation Comments Alanine Aminotransferase (ALT/SGPT) (test code = 1742-6) 46 0-55 [facility]Total Twlraud5311-84-37 06:21:00* Test Item Value Reference Range Interpretation Comments Total Protein (test code = 2885-2) 5.5 6.5-8.1 L [facility] HospitalAlbumin2019-03-01 06:21:00* Test Item Value Reference Range Interpretation Comments Albumin (test code = 1751-7) 2.0 3.5-5.0 L [facility]Globulin2019-03-01 06:21:00* Test Item Value Reference Range Interpretation Comments Globulin (test code = 71733-1) 3.5 2.3-3.5 [facility]Albumin/Globulin Hfnqw0335-70-59 06:21:00 * Test Item Value Reference Range Interpretation Comments Albumin/Globulin Ratio (test code = 1759-0) 0.6 0.8-2.0 L [facility] HospitalAlkaline Tixfogsmthe8097-46-27 06:21:00* Test Item Value Reference Range Interpretation Comments Alkaline Phosphatase (test code = 6768-6) 100 40-150 [facility] HospitalAmylase Gdfug4712-63-80 06:21:00* Test Item Value Reference Range Interpretation Comments Amylase Level (test code = 1798-8) 61 25-125 [facility]White Blood Hpyeo6624-45-67 06:03:00* Test Item Value Reference Range Interpretation Comments White Blood Count (test code = 6690-2) 14.29 4.8-10.8 H [facility]Red Blood Ndrwx7878-59-78 06:03:00* Test Item Value Reference Range Interpretation Comments Red Blood Count (test code = 789-8) 3.81 3.6-5.1 [facility] HospitalHemoglobin2019-03-01 06:03:00* Test Item Value Reference Range Interpretation Comments Hemoglobin (test code = 80785-1) 9.5 12.0-16.0 L [facility] HospitalHematocrit2019-03-01 06:03:00* Test Item Value Reference Range Interpretation Comments Hematocrit (test code = 4544-3) 32.2 34.2-44.1 L [facility] HospitalMean Corpuscular Fqtgrt1226-47-64 06:03:00* Test Item Value Reference Range Interpretation Comments Mean Corpuscular Volume (test code = 787-2) 84.5 81-99 [facility]Mean Corpuscular Cjlzzfwaky8149-23-61 06:03:00* Test Item Value Reference Range Interpretation Comments Mean Corpuscular Hemoglobin (test code = 785-6) 24.9 28-32 L [facility]Mean Corpuscular Hemoglobin Concent 2018-08-18 06:03:00* Test Item Value Reference Range Interpretation Comments Mean Corpuscular Hemoglobin Concent (test code = 786-4) 29.5 31-35 L [facility] HospitalRed Cell Distribution Lbyya8399-17-59 06:03:00* Test Item Value Reference Range Interpretation Comments Red Cell Distribution Width (test code = 16717-8) 16.7 11.7 -14.4 H [facility] HospitalPlatelet Rmblg2263-57-38 06:03:00* Test Item Value Reference Range Interpretation Comments Platelet Count (test code = 777-3) 254 140-360 [facility] HospitalNeutrophils (%) (Auto)2018-08-18 06:03:00 * Test Item Value Reference Range Interpretation Comments Neutrophils (%) (Auto) (test code = 26575-4) 75.4 38.7-80.0 [facility] HospitalLymphocytes (%) (Auto)2018-08-18 06:03:00 * Test Item Value Reference Range Interpretation Comments Lymphocytes (%) (Auto) (test code = 736-9) 8.9 18.0-39.1 L [facility] HospitalMonocytes (%) (Auto)2018-08-18 06:03:00* Test Item Value Reference Range Interpretation Comments Monocytes (%) (Auto) (test code = 5905-5) 8.4 4.4-11.3 [facility]Eosinophils (%) (Auto)2018-08-18 06:03:00 * Test Item Value Reference Range Interpretation Comments Eosinophils (%) (Auto) (test code = 713-8) 2.5 0.0-6.0 [facility] HospitalBasophils (%) (Auto)2018-08-18 06:03:00* Test Item Value Reference Range Interpretation Comments Basophils (%) (Auto) (test code = 706-2) 0.5 0.0-1.0 [facility] HospitalIM GRANULOCYTES %2018-08-18 06:03:00* Test Item Value Reference Range Interpretation Comments IM GRANULOCYTES % (test code = IM GRANULOCYTES %) 4.3 0.0- 1.0 H [facility] HospitalNeutrophils # (Auto)2018-08-18 06:03:00* Test Item Value Reference Range Interpretation Comments Neutrophils # (Auto) (test code = 751-8) 10.8 2.1-6.9 H [facility] HospitalLymphocytes # (Auto)2018-08-18 06:03:00* Test Item Value Reference Range Interpretation Comments Lymphocytes # (Auto) (test code = 11605-5) 1.3 1.0-3.2 [facility] HospitalMonocytes # (Auto)2018-08-18 06:03:00* Test Item Value Reference Range Interpretation Comments Monocytes # (Auto) (test code = 742-7) 1.2 0.2-0.8 H [facility] HospitalEosinophils # (Auto)2018-08-18 06:03:00* Test Item Value Reference Range Interpretation Comments Eosinophils # (Auto) (test code = 711-2) 0.4 0.0-0.4 [facility] HospitalBasophils # (Auto)2018-08-18 06:03:00* Test Item Value Reference Range Interpretation Comments Basophils # (Auto) (test code = 704-7) 0.1 0.0-0.1 [facility] HospitalAbsolute Immature Granulocyte (auto 2018-08-18 06:03:00* Test Item Value Reference Range Interpretation Comments Absolute Immature Granulocyte (auto (amadna t code = Absolute Immature Granulocyte (auto) 0.62 0-0.1 H [facility] HospitalCHOLANGIOGRAM GCBZLV7647-78-53 08:32:00 [facility] [address] [place] [address] Patient Name: PK JONES MR #: [id number] : 1970 Age/Sex: 47/F Req #: [id number] Adm Physician: MITCHELL MEDEIROS MD Ordered by: DULCE MARIA NORIEGA MD Report #: [id number] Location: MED/SURG Room/Bed: [facility] Procedure: [id number] DX/CHOLANGIOGRAM INTROP Exam Date: 08/15/18 Exam Omer e: [id number] REPORT STATUS: Signed Di agnostic Cholangiogram Technique: Fluoroscopic spot images are provided fro m intraoperative cholangiogram. Request provided for diagnostic Radiology inte rpretation of cholangiogram. Findings: The cystic duct was cannulated and contrast injection performed. This demonstrates opacification of right si ded central biliary ducts as well as the common duct. Irregularity with possib le stone in the cystic duct. There is no definite stone or dilatation involvin g the common duct. Apparent mild narrowing of the common bile duct, however co ntrast passes into the duodenum, suggesting no significant obstruction. Conclusion: Likely stone within the cystic duct. No evidence of choledocholit hiasis. Non-specific apparent mild narrowing of the distal common bile ria t, however contrast passes into the duodenum, suggesting no significant obstru ction. Signed by: Dr. Karli Russell MD on 08/17/2018 8:39 AM Dictated By: KARLI RUSSELL MD 8 Tra nscribed By: KAYLEY on 08/17/18838 COPY TO: DULCE MARIA NORIEGA MD Uqkhcw9529-22-27 08:06:00* Test Item Value Reference Range Interpretation Comments Lipase (test code = 3040-3) 23 8-78 [facility] HospitalDifferential Total Cells Counted 2018-08-13 10:03:00* Test Item Value Reference Range Interpretation Comments Differential Total Cells Counted (test code = Danny tial Total Cells Counted) 100 [facility] HospitalNeutrophils % (Manual)2018-08-13 10:03:00 * Test Item Value Reference Range Interpretation Comments Neutrophils % (Manual) (test code = 03854-0) 90 40-74 H [facility] HospitalBand Neutrophils %2018-08-13 10:03:00* Test Item Value Reference Range Interpretation Comments Band Neutrophils % (test code = 764-1) 5 [facility] HospitalMonocytes % (Manual)2018-08-13 10:03:00* Test Item Value Reference Range Interpretation Comments Monocytes % (Manual) (test code = 744-3) 5 3.4-9.0 [facility] HospitalPlatelet Hmzzqaff9447-37-49 10:03:00* Test Item Value Reference Range Interpretation Comments Platelet Estimate (test code = 69582-9) ADEQUATE [facility] HospitalPlatelet Morphology Jirjwsb0121-53-73 10:03:00* Test Item Value Reference Range Interpretation Comments Platelet Morphology Comment (test code = 29918-9) NORMAL [facility] HospitalRed Cell Morphology Rvmtulc4860-55-76 10:03:00* Test Item Value Reference Range Interpretation Comments Red Cell Morphology Comment (test code = 6742-1) NORMAL [facility] HospitalVitamin B12 Xzgou1667-91-55 07:35:00* Test Item Value Reference Range Interpretation Comments Vitamin B12 Level (test code = 77658-8) 370 213-816 [facility] HospitalFolate2019-02-24 07:35:00* Test Item Value Reference Range Interpretation Comments Folate (test code = 2284-8) 6.3 7.0-15.4 L [facility] HospitalFerritin2019-02-24 06:48:00* Test Item Value Reference Range Interpretation Comments Ferritin (test code = 2276-4) 32.44 4.63-204.00 [facility] HospitalDirect Oxxcjolsb0351-91-67 06:29:00* Test Item Value Reference Range Interpretation Comments Direct Bilirubin (test code = 76325-5) 1.0 0.0-0.5 H [facility] HospitalIron Ecfzi0156-09-58 06:28:00* Test Item Value Reference Range Interpretation Comments Iron Level (test code = 2498-4) 12 50-170 L [facility]Total Iron Binding Epaghztv6268-04-05 06:28:00* Test Item Value Reference Range Interpretation Comments Total Iron Binding Capacity (test code = 2500-7) 266 261-4 78 [facility] HospitalPercent Iron Dpsakxhdha5537-92-49 06:28:00* Test Item Value Reference Range Interpretation Comments Percent Iron Saturation (test code = 2502-3) 5 15-50 L [facility] HospitalTransferrin2019-02-24 06:28:00* Test Item Value Reference Range Interpretation Comments Transferrin (test code = 3034-6) 190 180-382 [facility]Percent Reticulocyte Dujjz8538-90-82 06:19:00* Test Item Value Reference Range Interpretation Comments Percent Reticulocyte Count (test code = 48798-1) 1.8 0.8-2 .2 [facility] HospitalUS KEZTYXZENAZ0654-22-08 06:12:00 [facility] [address] [place] [address] Patient Name: PK JONES MR #: [id number] : 1970 Age/Sex: 47/F Req #: [id number] Adm Physician: MITCHELL MEDEIROS MD Ordered by: BOYD GOMEZ MD Report #: [id number] Location: [facility] Room/Bed: [place] [address] Procedure: [id number] US/US GALLBLADDER Exam Date: Exam Time: REPORT STATUS: Signed EXAM: Right Upper Quadrant Ultrasound INDICATION: RUQ PAIN Y COMPARISON: None. TECHNIQUE: Transverse and longitudinal images of the right upper abdomen were obtained. FINDINGS: Limited study due to body habitus. Liver: Size: 18.9 cm in the right midclavicular line, enlarged Appearance : Normal echogenicity, smooth contour Mass: No focal masses Gallblad anahi: Stones/Sludge: Multiple shadowing gallstones, measuring up to 4.5 cm . Wall: 0.7 cm Appearance: No pericholecystic fluid or hydrops. Sonographic Jeff's Sign: Negative Bile Ducts: Intrahepatic Ducts: No dilatation Extrahepatic Ducts: Common bile duct measures 0.5 cm , no dilatation Pancreas: Limited visualized pancreas is echogenic. Right Kidney: Size: 12 cm Echogenicity: Normal Pare nchymal thickness: Normal Collecting system: No hydronephrosis St ones: None Cyst/Mass: None Vessels: Aorta: Not well visualize d. Inferior Vena Cava: Visualized portions are normal Main Portal Vein: 1.1 cm, normal size with hepatopetal flow. Free Fluid: No asci amanda or pleural effusion IMPRESSION: Cholelithiasis with gallbladder wall thickening. Gallbladder is not distended and there is no pericholecystic fluid . Hepatomegaly. Signed by: Dr. Luis Watkins MD on 07/22 6:17 AM Dictated By: LUIS WATKINS MD 6 Transcribed By: KAYLEY on 08/12/18616 COPY TO: BOYD GOMEZ MD Creatine Kinase [id number] 05:33:00* Test Item Value Reference Range Interpretation Comments Creatine Kinase MB (test code = 91636-0) 2.40 0-5.0 [facility] HospitalTroponin I7386-82-07 05:33:00* Test Item Value Reference Range Interpretation Comments Troponin I (test code = ZMQ9371) 0.007 0-0.300 [facility] HospitalCreatine Xsjelu2197-01-63 05:31:00* Test Item Value Reference Range Interpretation Comments Creatine Kinase (test code = 2157-6) 47 29-168 [facility] HospitalUrine Coarse Granular Qqcri6401-68-43 05:29:00* Test Item Value Reference Range Interpretation Comments Urine Coarse Granular Casts (test code = 98840-6) 1-5 >0 H [facility] HospitalUrine White Blood Cell Wbyxj4556-94-05 05:29:00* Test Item Value Reference Range Interpretation Comments Urine White Blood Cell Casts (test code = 94392-6) 1-5 >0 H [facility] HospitalUrine Fqmpy5502-89-48 05:29:00* Test Item Value Reference Range Interpretation Comments Urine Mucus (test code = 8247-9) MANY RARE H [facility] HospitalUrine Eqrj3736-57-40 05:01:00* Test Item Value Reference Range Interpretation Comments Urine Test (test code = 2106-3) NEGATIVE NEGATIVE [facility]
== END 2020-03-15 04:36 | disposition home or self-care (01) ==
LOC: ER 02:18
DX: M54.42 Lumbago with sciatica, left side (principal); E87.1 Hypo-osmolality and hyponatremia; E11.65 Type 2 diabetes mellitus with hyperglycemia; E03.9 Hypothyroidism, unspecified; D64.9 Anemia, unspecified
CPT/HCPCS: 36415; 74176; 80053; 81001; 85025; 99284; J1885; J2270; J2405; J7030

== ENCOUNTER 2020-03-20 05:48 | Inpatient (IN) | payer BC ==
[~2020-03-20] VITALS: Ht 175.3 cm; Wt 175.5 kg
--- OUTSIDE RECORDS SUMMARY | 2020-03-20 06:09 | XMS REPORT | Continuity of Care Document ---
Author Author [facility] t Organization [facility] Address [address] [place] [address] Phone Unavailable Care Team Providers Care Furniture Mechanic Name Role Phone LINDATad PIERRE DO STACEY PCP ROMERO, MARCELLO Attphys Unavailable MEDEIROS, SOUHEIL Attphys Unavailable MEDEIROS, SOUHEIL Admphys Unavailable Payers Payer Name Policy Type Policy Number Effective Date Expiration Date S sarina [employer] Ppo [id number] 2020 00:00:00 [facility] [employer] Pos [id number] 2017 00:00:00 [facility] Problems Condition Name Condition Details Condition Category Status Onset Date Resolution Date Last Treatment Date Treating Clinician Comments Source Cholecystitis Cholecystitis Problem Active [facility] Multiple gallstones Problem Active [facility] Pancreatitis due to biliary obstruction Problem Active [facility] Allergies, Adverse Reactions, Alerts This patient has no known allergies or adverse reactions. Social History Social Habit Start Date Stop Date Quantity Comments Source Sex Assigned At 1970 00:00:00 1970 00:[birth year]:00 Female [facility] Medications Ordered Medication Name Filled Medication Name Start Date Stop Da te Current Medication? Ordering Clinician Indication Dosage Frequency Signature (SIG) Comments Components Source Ferrous Sulfate Ferrous Sulfate Yes 325 .every O ther Day [facility] Glipizide (Glipizide Er) 5 Mg TAB.ER.24 Glipizide (Glipizide Er) 5 Mg TAB.ER.24 Yes 5 Daily [facility] Hydrocodone Bit/Acetaminophen ([place] 7.5-325 Tablet) 1 Each TABLET Hydrocodone Bit/Acetaminophen ([place] 7.5-325 Tablet) 1 Each TABLET Yes 1 Every 4 Hours as needed for Pain [facility] Levofloxacin (Levaquin) 500 Mg TABLET Levofloxacin (Levaquin) 500 M g TABLET Yes 500 Daily [facility] Levothyroxine Sodium Levothyroxine Sodium Yes 200 Daily [facility] Lisinopril Lisinopril Yes 10 Daily I [facility] Vital Signs Vital Name Observation Time Observation Value Comments Source Weight 2020-03-15 02:17:00 330 [lb_av] [facility] BMI (Body Mass Index) 2020-03-15 02:17:00 48.7 kg/m2 [facility] Procedures Procedure Date / Time Performed Performing Clinician [facility] e CT of abdomen and pelvis without contrast 2020-03-15 00:00:00 [facility] Plan of Care Planned Activity Planned Date Details Comments Source Instructions Sciatica [facility] Instructions Back Pain [facility] Instructions Lymphadenopathy [facility] Encounters Start Date/Time End Date/Time Encounter Type Admission Type Attendi [facility] Facility Care Department Encounter ID Source 2020-03-15 02:18:00 2020-03-15 04:36:00 Departed Emergency Room 1 MARCELLO ROMERO [facility] [id number] [facility] 2018-08-12 06:03:00 2018-08-19 14:53:00 Discharged Inpatient 1 [facility] [id number] [facility] Results Test Description Test Time Test Comments Results Result Comments Source CT ABDOMEN/PELVIS WO 2020-03-15 03:55:00 [facility] [address] [place] [address] Patient Name: PK JONES MR #: [id number] : 1970 Age/Sex: 49/F Req #: [id number] Adm Physician: Ordered by: MARCELLO ROMERO DO Report #: [id number] Location: ER Room/Bed: Procedure: [id number] CT/CT ABDOMEN/PELVIS WO Exam Date: 03/15/20 Exam [...] Count (test code = 6690-2) 15.94 4.8-10.8 [facility] [place] erythrocytes automated count (number/volume)2020-03-15 02:32:00* Test Item Value Reference Range Interpretation Comments Red Blood Count (test code = 789-8) 4.02 3.6-5.1 [facility] CenterBlood hemoglobin measurement (moles/volume)2020-03-15 02:32:00* Test Item Value Reference Range Interpretation Comments Hemoglobin (test code = 30497-6) 8.6 12.0-16.0 [facility] CenterAutomated blood hematocrit (volume fraction)2020-03-15 02:32:00* Test Item Value Reference Range Interpretation Comments Hematocrit (test code = 4544-3) 30.0 34.2-44.1 [facility] CenterAutomated erythrocyte mean corpuscular okplvu3199-55-63 02:32:00* Test Item Value Reference Range Interpretation Comments Mean Corpuscular Volume (test code = 787-2) 74.6 81-99 [facility] CenterAutomated erythrocyte mean corpuscular hemoglobin (mass per erythrocyte)2020-03-15 02:32:00* Test Item Value Reference Range Interpretation Comments Mean Corpuscular Hemoglobin (test code = 785-6) 21.4 28-32 [facility] CenterAutomated erythrocyte mean corpuscular hemoglobin concentration measurement (mass/volume)2020-03-15 02:32:00* Test Item Value Reference Range Interpretation Comments Mean Corpuscular Hemoglobin Concent (test code = 786-4) 28.7 31-35 [facility] CenterRDW LphHq-Hxc1048-82-26 02:32:00* Test Item Value Reference Range Interpretation Comments Red Cell Distribution Width (test code = 88213-9) 18.3 11.7 -14.4 [facility] CenterAutomated blood platelet count (count/volume)2020-03-15 02:32:00* Test Item Value Reference Range Interpretation Comments Platelet Count (test code = 777-3) 422 140-360 [facility] CenterAutomated blood segmented neutrophil count as percentage of total kfzmrlqafq4350-64-25 02:32:00* Test Item Value Reference Range Interpretation Comments Neutrophils (%) (Auto) (test code = 45952-7) 82.5 38.7-80.0 [facility] CenterAutomated blood lymphocyte count as percentage ot total zbgoryyecu6174-63-22 02:32:00* Test Item Value Reference Range Interpretation Comments Lymphocytes (%) (Auto) (test code = 736-9) 6.1 18.0-39.1 [facility] CenterAutomated blood monocyte count as percentage of total binrdvefdk0149-61-41 02:32:00* Test Item Value Reference Range Interpretation Comments Monocytes (%) (Auto) (test code = 5905-5) 9.2 4.4-11.3 [facility] CenterAutomated blood eosinophil count as percentage of total rhprvqvmzd7715-32-98 02:32:00* Test Item Value Reference Range Interpretation Comments Eosinophils (%) (Auto) (test code = 713-8) 0.6 0.0-6.0 [facility] CenterAutomated blood basophil count as percentage of total cumznitijd1989-55-00 02:32:00* Test Item Value Reference Range Interpretation Comments Basophils (%) (Auto) (test code = 706-2) 0.5 0.0-1.0 [facility] CenterFluoroscopic procedure less than one hour vyvydltp9314-86-43 02:32:00* Test Item Value Reference Range Interpretation Comments IM GRANULOCYTES % (test code = IM GRANULOCYTES %) 1.1 0.0- 1.0 [facility] CenterAutomated blood neutrophil count 2020-03-15 02:32:00* Test Item Value Reference Range Interpretation Comments Neutrophils # (Auto) (test code = 751-8) 13.2 2.1-6.9 [facility] CenterBlood lymphocytes count (number/volume) 2020-03-15 02:32:00* Test Item Value Reference Range Interpretation Comments Lymphocytes # (Auto) (test code = 94198-3) 1.0 1.0-3.2 [facility] CenterBlood monocytes automated count (number/volume)2020-03-15 02:32:00* Test Item Value Reference Range Interpretation Comments Monocytes # (Auto) (test code = 742-7) 1.5 0.2-0.8 [facility] CenterAutomated blood eosinophil count 2020-03-15 02:32:00* Test Item Value Reference Range Interpretation Comments Eosinophils # (Auto) (test code = 711-2) 0.1 0.0-0.4 [facility] CenterAutomated blood basophil count (count/volume)2020-03-15 02:32:00* Test Item Value Reference Range Interpretation Comments Basophils # (Auto) (test code = 704-7) 0.1 0.0-0.1 [facility] CenterFluoroscopic procedure less than one hour vjkalyzk7167-30-41 02:32:00* Test Item Value Reference Range Interpretation Comments Absolute Immature Granulocyte (auto (amanda t code = Absolute Immature Granulocyte (auto) 0.18 0-0.1 [facility] plasma sodium measurement (moles/volume)2020-03-15 02:32:00* Test Item Value Reference Range Interpretation Comments Sodium Level (test code = 2951-2) 128 136-145 [facility]anoerum or plasma potassium measurement (moles/volume)2020-03-15 02:32:00* Test Item Value Reference Range Interpretation Comments Potassium Level (test code = 2823-3) 4.3 3.5-5.1 [facility]anoerum or plasma chloride measurement (moles/volume)2020-03-15 02:32:00* Test Item Value Reference Range Interpretation Comments Chloride Level (test code = 2075-0) 93 98-107 [facility]anoerum or plasma carbon dioxide, total measurement (moles/volume)2020-03-15 02:32:00* Test Item Value Reference Range Interpretation Comments Carbon Dioxide Level (test code = 2028-9) 22 22-29 [facility]anoerum or plasma anion usj4114-77-37 02:32:00* Test Item Value Reference Range Interpretation Comments Anion Gap (test code = 47511-0) 17.3 8-16 [facility]anoerum or plasma urea nitrogen measurement (mass/volume)2020-03-15 02:32:00* Test Item Value Reference Range Interpretation Comments Blood Urea Nitrogen (test code = 3094-0) 22 7-26 [facility]anoerum or plasma creatinine measurement (mass/volume)2020-03-15 02:32:00* Test Item Value Reference Range Interpretation Comments Creatinine (test code = 2160-0) 1.77 0.57-1.11 [facility]anoerum or plasma urea nitrogen/creatinine mass nlebs1659-86-96 02:32:00* Test Item Value Reference Range Interpretation Comments BUN/Creatinine Ratio (test code = 3097-3) 12 6-25 [facility] CenterEstimated glomerular filtration rate (GFR) vphrwlipofrdc0000-13-30 02:32:00* Test Item Value Reference Range Interpretation Comments Estimat Glomerular Filtration Rate (test code = 154223624) 30 >60 Ranges were taken from the National Kidney Disease Education Program and the [facility] Kidney Foundation literature.Reference ranges:60 or greater: Nelglt89-43 ( for 3 consecutive months): Chronic kidney disease 15 or less: Kidney failurePampa Regional Medical CenterGlucose oyvcoiiaybe8977-64-96 02:32:00* Test Item Value Reference Range Interpretation Comments Glucose Level (test code = JUI1963) 165 74-118 [facility]er[facility] or plasma calcium measurement (mass/volume)2020-03-15 02:32:00* Test Item Value Reference Range Interpretation Comments Calcium Level (test code = 98918-6) 8.9 8.4-10.2 [facility]anoerum or plasma total bilirubin measurement (mass/volume)2020-03-15 02:32:00* Test Item Value Reference Range Interpretation Comments Total Bilirubin (test code = 1975-2) 0.6 0.2-1.2 [facility] CenterFluoroscopic procedure less than one hour dbudhcfz1852-17-55 02:32:00* Test Item Value Reference Range Interpretation Comments Aspartate Amino Transf (AST/SGOT) (test code = Aspartate Amino Transf (AST/SGOT)) 25 5-34 [facility]anoerum or plasma alanine aminotransferase measurement (enzymatic activity/volume)2020-03-15 02:32:00* Test Item Value Reference Range Interpretation Comments Alanine Aminotransferase (ALT/SGPT) (test code = 1742-6) 11 0-55 [facility]anoerum or plasma protein measurement (mass/volume)2020-03-15 02:32:00* Test Item Value Reference Range Interpretation Comments Total Protein (test code = 2885-2) 7.7 6.5-8.1 [facility]anoer[facility] or plasma albumin measurement (mass/volume)2020-03-15 02:32:00* Test Item Value Reference Range Interpretation Comments Albumin (test code = 1751-7) 4.0 3.5-5.0 [facility] CenterPlasma globulin measurement (mass/volume) 2020-03-15 02:32:00* Test Item Value Reference Range Interpretation Comments Globulin (test code = 85037-0) 3.7 2.3-3.5 [facility]anoerum or plasma albumin/globulin mass zjdsy2599-82-35 02:32:00* Test Item Value Reference Range Interpretation Comments Albumin/Globulin Ratio (test code = 1759-0) 1.1 0.8-2.0 [facility]er[facility] or plasma alkaline phosphatase measurement (enzymatic activity/volume)2020-03-15 02:32:00* Test Item Value Reference Range Interpretation Comments Alkaline Phosphatase (test code = 6768-6) 77 40-150 [facility] CenterUrine color ickluqlzjcfeb1228-91-50 02:17:00* Test Item Value Reference Range Interpretation Comments Urine Color (test code = 5778-6) YELLOW YELLOW [facility] CenterUrine sjwtniv3740-29-09 02:17:00* Test Item Value Reference Range Interpretation Comments Urine Clarity (test code = 58556-8) CLEAR CLEAR [facility]anopecific gravity of Urine by Test strip 2020-03-15 02:17:00* Test Item Value Reference Range Interpretation Comments Urine Specific [place] (test code = 5811-5) 1.025 1.010-1.02 5 [facility] CenterUrine pH measurement by automated test ihslr4411-46-84 02:17:00* Test Item Value Reference Range Interpretation Comments Urine pH (test code = 43229-0) 5.5 5-7 [facility] CenterUrine leukocyte esterase detection by fwbsiwpm1422-99-35 02:17:00* Test Item Value Reference Range Interpretation Comments Urine Leukocyte Esterase (test code = 5799-2) NEGATIVE NEGATIVE [facility] CenterUrine nitrite hfaumqxnd6865-47-16 02:17:00* Test Item Value Reference Range Interpretation Comments Urine Nitrite (test code = 75524-4) NEGATIVE NEGATIVE [facility] CenterUrine protein measurement by test strip (mass/volume)2020-03-15 02:17:00* Test Item Value Reference Range Interpretation Comments Urine Protein (test code = 5804-0) >=300 NEGATIVE [facility] CenterUrine glucose wubsdlsog7945-03-42 02:17:00* Test Item Value Reference Range Interpretation Comments Urine Glucose (UA) (test code = 2349-9) NEGATIVE NEGATIVE [facility] CenterUrine ketones detection by automated test xsnbj8831-52-91 02:17:00* Test Item Value Reference Range Interpretation Comments Urine Ketones (test code = 14284-9) NEGATIVE NEGATIVE [facility] CenterUrine urobilinogen measurement by test strip (mass/volume)2020-03-15 02:17:00* Test Item Value Reference Range Interpretation Comments Urine Urobilinogen (test code = 36905-3) 1 0.2-1 [facility] CenterUrine total bilirubin measurement (mass/volume)2020-03-15 02:17:00* Test Item Value Reference Range Interpretation Comments Urine Bilirubin (test code = 1978-6) SMALL NEGATIVE [facility] CenterUrine erythrocytes zpvnekgok3127-01-63 02:17:00* Test Item Value Reference Range Interpretation Comments Urine Blood (test code = 29264-4) MODERATE NEGATIVE [facility] CenterAutomated urine sediment leukocyte count by microscopy (number/high power field)2020-03-15 02:17:00* Test Item Value Reference Range Interpretation Comments Urine WBC (test code = 5821-4) 0-5 0-5 [facility] CenterErythrocytes detection in urine sediment by light hxifetisko3082-43-85 02:17:00* Test Item Value Reference Range Interpretation Comments Urine RBC (test code = 39068-4) 6-10 0-5 [facility] CenterBacteria detection in urine sediment by light jwozxmrigf9876-17-91 02:17:00* Test Item Value Reference Range Interpretation Comments Urine Bacteria (test code = 02199-1) FEW NONE [facility] CenterEpithelial cells detection in urine sediment by light yuaurppnor0787-96-60 02:17:00* Test Item Value Reference Range Interpretation Comments Urine Epithelial Cells (test code = 24035-7) MODERATE NONE [facility] CenterAmorphous sediment detection in urine sediment by light begcuawoxv1904-86-77 02:17:00* Test Item Value Reference Range Interpretation Comments Urine Amorphous Sediment (test code = 8246-1) FEW FEW [facility] CenterBedside Bwjyujf5583-55-89 12:25:00* Test Item Value Reference Range Interpretation Comments Bedside Glucose (test code = 65065-2) 176 70-120 H Meter ID: [id number] Regional Medical CenterUrine JNR2128-28-17 16:50:00* Test Item Value Reference Range Interpretation Comments Urine WBC (test code = 5821-4) NONE 0-5 [facility] CenterUrine FDT7026-72-25 16:50:00* Test Item Value Reference Range Interpretation Comments Urine RBC (test code = 69937-6) 11-20 0-5 H [facility] CenterUrine Ommxwozw0780-91-24 16:50:00* Test Item Value Reference Range Interpretation Comments Urine Bacteria (test code = 14602-2) MODERATE NONE H [facility] CenterUrine Epithelial Iwgwe2986-55-77 16:50:00 * Test Item Value Reference Range Interpretation Comments Urine Epithelial Cells (test code = 32574-1) MODERATE NONE [facility] CenterUrine Ewpjf1163-76-77 16:38:00* Test Item Value Reference Range Interpretation Comments Urine Color (test code = 5778-6) YELLOW YELLOW [facility] CenterUrine Mfqqjiu4084-77-14 16:38:00* Test Item Value Reference Range Interpretation Comments Urine Clarity (test code = 17614-3) SL CLOUDY CLEAR [facility] CenterUrine Specific Igwpjis9423-47-90 16:38:00 * Test Item Value Reference Range Interpretation Comments Urine Specific [place] (test code = 5811-5) 1.030 1.010-1.02 5 H [facility] CenterUrine kN0737-32-86 16:38:00* Test Item Value Reference Range Interpretation Comments Urine pH (test code = 27960-2) 6 5-7 [facility] CenterUrine Leukocyte Qosoeasa8674-80-51 16:38:00* Test Item Value Reference Range Interpretation Comments Urine Leukocyte Esterase (test code = 5799-2) NEGATIVE NEGATIVE [facility] CenterUrine Cjxxomv4156-04-88 16:38:00* Test Item Value Reference Range Interpretation Comments Urine Nitrite (test code = 96814-6) NEGATIVE NEGATIVE [facility] CenterUrine Cwjkpru7004-79-45 16:38:00* Test Item Value Reference Range Interpretation Comments Urine Protein (test code = 5804-0) 2+ NEGATIVE H [facility] CenterUrine Glucose (UA)2018-08-18 16:38:00* Test Item Value Reference Range Interpretation Comments Urine Glucose (UA) (test code = 2349-9) NEGATIVE NEGATIVE [facility] CenterUrine Mscrntk6326-23-94 16:38:00* Test Item Value Reference Range Interpretation Comments Urine Ketones (test code = 29195-7) TRACE NEGATIVE H [facility] CenterUrine Recinmxbvsej1530-85-98 16:38:00* Test Item Value Reference Range Interpretation Comments Urine Urobilinogen (test code = 55597-5) 0.2 0.2-1 [facility] CenterUrine Eruxeiimh8464-64-88 16:38:00* Test Item Value Reference Range Interpretation Comments Urine Bilirubin (test code = 1978-6) 1+ NEGATIVE H [facility] CenterUrine Vimff6322-46-52 16:38:00* Test Item Value Reference Range Interpretation Comments Urine Blood (test code = 71982-9) 4+ NEGATIVE H [facility] Planoodium Omatp2298-37-82 06:21:00* Test Item Value Reference Range Interpretation Comments Sodium Level (test code = 2951-2) 140 136-145 [facility] CenterPotassium Szmuc0347-03-48 06:21:00* Test Item Value Reference Range Interpretation Comments Potassium Level (test code = 2823-3) 3.3 3.5-5.1 L [facility] CenterChloride Oskjp6065-61-10 06:21:00* Test Item Value Reference Range Interpretation Comments Chloride Level (test code = 2075-0) 112 98-107 H [facility] CenterCarbon Dioxide Qemjx0303-98-61 06:21:00* Test Item Value Reference Range Interpretation Comments Carbon Dioxide Level (test code = 2028-9) 23 22-29 [facility] CenterAnion Uvs1642-37-50 06:21:00* Test Item Value Reference Range Interpretation Comments Anion Gap (test code = 98643-9) 8.3 8-16 [facility] CenterBlood Urea Icupoyev0958-13-40 06:21:00* Test Item Value Reference Range Interpretation Comments Blood Urea Nitrogen (test code = 3094-0) 16 7-26 [facility] CenterCreatinine2019-03-01 06:21:00* Test Item Value Reference Range Interpretation Comments Creatinine (test code = 2160-0) 0.82 0.57-1.11 [facility] CenterBUN/Creatinine Cktzm1612-35-81 06:21:00* Test Item Value Reference Range Interpretation Comments BUN/Creatinine Ratio (test code = 3097-3) 20 6-25 [facility] CenterEstimat Glomerular Filtration Rate 2018-08-18 06:21:00* Test Item Value Reference Range Interpretation Comments Estimat Glomerular Filtration Rate (test code = 558314796) > 60 >60 Ranges were taken from the National Kidney Disease Education Program and the [facility] Kidney Foundation literature.Reference ranges:60 or greater: Eeagsy13-28 ( for 3 consecutive months): Chronic kidney disease 15 or less: Kidney failureP[facility] Medical CenterGlucose Gnqkj8535-16-70 06:21:00* Test Item Value Reference Range Interpretation Comments Glucose Level (test code = PCR2191) 190 74-118 H [facility] CenterCalcium Hnwrg3601-75-77 06:21:00* Test Item Value Reference Range Interpretation Comments Calcium Level (test code = 73793-3) 7.8 8.4-10.2 L [facility] CenterTotal Ztltareyz9146-73-48 06:21:00* Test Item Value Reference Range Interpretation Comments Total Bilirubin (test code = 1975-2) 0.8 0.2-1.2 [facility] CenterAspartate Amino Transf (AST/SGOT) 2018-08-18 06:21:00* Test Item Value Reference Range Interpretation Comments Aspartate Amino Transf (AST/SGOT) (test code = Aspartate Amino Transf (AST/SGOT)) 20 5-34 [facility] CenterAlanine Aminotransferase (ALT/SGPT) 2018-08-18 06:21:00* Test Item Value Reference Range Interpretation Comments Alanine Aminotransferase (ALT/SGPT) (test code = 1742-6) 46 0-55 [facility] CenterTotal Hyobuex4026-19-01 06:21:00* Test Item Value Reference Range Interpretation Comments Total Protein (test code = 2885-2) 5.5 6.5-8.1 L [facility] CenterAlbumin2019-03-01 06:21:00* Test Item Value Reference Range Interpretation Comments Albumin (test code = 1751-7) 2.0 3.5-5.0 L [facility] CenterGlobulin2019-03-01 06:21:00* Test Item Value Reference Range Interpretation Comments Globulin (test code = 15193-7) 3.5 2.3-3.5 [facility] CenterAlbumin/Globulin Ucldw5167-74-82 06:21:00 * Test Item Value Reference Range Interpretation Comments Albumin/Globulin Ratio (test code = 1759-0) 0.6 0.8-2.0 L [facility] CenterAlkaline Jmhsmrdcyat5341-78-31 06:21:00* Test Item Value Reference Range Interpretation Comments Alkaline Phosphatase (test code = 6768-6) 100 40-150 [facility] CenterAmylase Urwsa9544-67-82 06:21:00* Test Item Value Reference Range Interpretation Comments Amylase Level (test code = 1798-8) 61 25-125 [facility] CenterWhite Blood Mlrje1169-57-65 06:03:00* Test Item Value Reference Range Interpretation Comments White Blood Count (test code = 6690-2) 14.29 4.8-10.8 H [facility] CenterRed Blood Qzwik6578-71-18 06:03:00* Test Item Value Reference Range Interpretation Comments Red Blood Count (test code = 789-8) 3.81 3.6-5.1 [facility] CenterHemoglobin2019-03-01 06:03:00* Test Item Value Reference Range Interpretation Comments Hemoglobin (test code = 07628-1) 9.5 12.0-16.0 L [facility] CenterHematocrit2019-03-01 06:03:00* Test Item Value Reference Range Interpretation Comments Hematocrit (test code = 4544-3) 32.2 34.2-44.1 L [facility] CenterMean Corpuscular Jpnulp1813-28-01 06:03:00* Test Item Value Reference Range Interpretation Comments Mean Corpuscular Volume (test code = 787-2) 84.5 81-99 [facility] CenterMean Corpuscular Gkpjxsnwjq9464-29-97 06:03:00* Test Item Value Reference Range Interpretation Comments Mean Corpuscular Hemoglobin (test code = 785-6) 24.9 28-32 L [facility] CenterMean Corpuscular Hemoglobin Concent 2018-08-18 06:03:00* Test Item Value Reference Range Interpretation Comments Mean Corpuscular Hemoglobin Concent (test code = 786-4) 29.5 31-35 L [facility] CenterRed Cell Distribution Xofal6029-33-21 06:03:00* Test Item Value Reference Range Interpretation Comments Red Cell Distribution Width (test code = 94992-0) 16.7 11.7 -14.4 H [facility] CenterPlatelet [id number] 06:03:00* Test Item Value Reference Range Interpretation Comments Platelet Count (test code = 777-3) 254 140-360 [facility] CenterNeutrophils (%) (Auto)2018-08-18 06:03:00 * Test Item Value Reference Range Interpretation Comments Neutrophils (%) (Auto) (test code = 83586-6) 75.4 38.7-80.0 [facility] CenterLymphocytes (%) (Auto)2018-08-18 06:03:00 * Test Item Value Reference Range Interpretation Comments Lymphocytes (%) (Auto) (test code = 736-9) 8.9 18.0-39.1 L [facility] CenterMonocytes (%) (Auto)2018-08-18 06:03:00* Test Item Value Reference Range Interpretation Comments Monocytes (%) (Auto) (test code = 5905-5) 8.4 4.4-11.3 [facility] CenterEosinophils (%) (Auto)2018-08-18 06:03:00 * Test Item Value Reference Range Interpretation Comments Eosinophils (%) (Auto) (test code = 713-8) 2.5 0.0-6.0 [facility] CenterBasophils (%) (Auto)2018-08-18 06:03:00* Test Item Value Reference Range Interpretation Comments Basophils (%) (Auto) (test code = 706-2) 0.5 0.0-1.0 [facility] CenterIM GRANULOCYTES %2018-08-18 06:03:00* Test Item Value Reference Range Interpretation Comments IM GRANULOCYTES % (test code = IM GRANULOCYTES %) 4.3 0.0- 1.0 H [facility] CenterNeutrophils # (Auto)2018-08-18 06:03:00* Test Item Value Reference Range Interpretation Comments Neutrophils # (Auto) (test code = 751-8) 10.8 2.1-6.9 H [facility] CenterLymphocytes # (Auto)2018-08-18 06:03:00* Test Item Value Reference Range Interpretation Comments Lymphocytes # (Auto) (test code = 71233-1) 1.3 1.0-3.2 [facility] CenterMonocytes # (Auto)2018-08-18 06:03:00* Test Item Value Reference Range Interpretation Comments Monocytes # (Auto) (test code = 742-7) 1.2 0.2-0.8 [facility] CenterEosinophils # (Auto)2018-08-18 06:03:00* Test Item Value Reference Range Interpretation Comments Eosinophils # (Auto) (test code = 711-2) 0.4 0.0-0.4 [facility] CenterBasophils # (Auto)2018-08-18 06:03:00* Test Item Value Reference Range Interpretation Comments Basophils # (Auto) (test code = 704-7) 0.1 0.0-0.1 [facility] CenterAbsolute Immature Granulocyte (auto 2018-08-18 06:03:00* Test Item Value Reference Range Interpretation Comments Absolute Immature Granulocyte (auto (amanda t code = Absolute Immature Granulocyte (auto) 0.62 0-0.1 H [facility] CenterCHOLANGIOGRAM [id number] 08:32:00 [facility] [address] [address] Patient Name: PK JONES MR #: [id number] : 1970 Age/Sex: 47/F Req #: [id number] Adm Physician: MITCHELL MEDEIROS MD Ordered by: DULCE MARIA NORIEGA MD Report #: [id number] Location: MED/SURG Room/Bed: [facility] Procedure: [id number] DX/CHOLANGIOGRAM INTROP Exam Date: 08/15/18 Exam Omer [...] 08/17/18838 COPY TO: DULCE MARIA NORIEGA MD [id number] 08:06:00* Test Item Value Reference Range Interpretation Comments Lipase (test code = 3040-3) 23 8-78 [facility] CenterDifferential Total Cells Counted 2018-08-13 10:03:00* Test Item Value Reference Range Interpretation Comments Differential Total Cells Counted (test code = Differlissa tial Total Cells Counted) 100 [facility] CenterNeutrophils % (Manual)2018-08-13 10:03:00 * Test Item Value Reference Range Interpretation Comments Neutrophils % (Manual) (test code = 99580-2) 90 40-74 H [facility] CenterBand Neutrophils %2018-08-13 10:03:00* Test Item Value Reference Range Interpretation Comments Band Neutrophils % (test code = 764-1) 5 [facility] CenterMonocytes % (Manual)2018-08-13 10:03:00* Test Item Value Reference Range Interpretation Comments Monocytes % (Manual) (test code = 744-3) 5 3.4-9.0 [facility] CenterPlatelet [id number] 10:03:00* Test Item Value Reference Range Interpretation Comments Platelet Estimate (test code = 27588-9) ADEQUATE [facility] CenterPlatelet Morphology Khzhjqc0195-16-37 10:03:00* Test Item Value Reference Range Interpretation Comments Platelet Morphology Comment (test code = 98209-7) NORMAL [facility] CenterRed Cell Morphology Tzgzvlq2579-99-82 10:03:00* Test Item Value Reference Range Interpretation Comments Red Cell Morphology Comment (test code = 6742-1) NORMAL [facility] CenterVitamin B12 Wpoli6325-56-15 07:35:00* Test Item Value Reference Range Interpretation Comments Vitamin B12 Level (test code = 01597-2) 370 213-816 [facility] CenterFolate2019-02-24 07:35:00* Test Item Value Reference Range Interpretation Comments Folate (test code = 2284-8) 6.3 7.0-15.4 L [facility] CenterFerritin2019-02-24 06:48:00* Test Item Value Reference Range Interpretation Comments Ferritin (test code = 2276-4) 32.44 4.63-204.00 [facility] CenterDirect Rcxdwrjgz0832-13-37 06:29:00* Test Item Value Reference Range Interpretation Comments Direct Bilirubin (test code = 67691-3) 1.0 0.0-0.5 H [facility] CenterIron Cwrjt1403-39-60 06:28:00* Test Item Value Reference Range Interpretation Comments Iron Level (test code = 2498-4) 12 50-170 L [facility] CenterTotal Iron Binding Kxzvqpgd3191-68-27 06:28:00* Test Item Value Reference Range Interpretation Comments Total Iron Binding Capacity (test code = 2500-7) 266 261-4 78 [facility] CenterPercent Iron Rukvmiajgy1534-35-05 06:28:00* Test Item Value Reference Range Interpretation Comments Percent Iron Saturation (test code = 2502-3) 5 15-50 L [facility] CenterTransferrin2019-02-24 06:28:00* Test Item Value Reference Range Interpretation Comments Transferrin (test code = 3034-6) 190 180-382 [facility] CenterPercent Reticulocyte Qmckl3323-10-22 06:19:00* Test Item Value Reference Range Interpretation Comments Percent Reticulocyte Count (test code = 93129-3) 1.8 0.8-2 .2 [facility] CenterUS RWNOXKBPCWY7449-53-65 06:12:00 [facility] [address] [place] [address] Patient Name: PK JONES MR #: [id number] : 1970 Age/Sex: 47/F Req #: [id number] Adm Physician: MITCHELL MEDEIROS MD Ordered by: BOYD GOMEZ MD Report #: [id number] Location: [facility] Room/Bed: [place] [address] Procedure: [id number] US/US GALLBLADDER Exam Date: [...] COPY TO: BOYD GOMEZ MD Creatine Kinase [id number] 05:33:00* Test Item Value Reference Range Interpretation Comments Creatine Kinase MB (test code = 17089-7) 2.40 0-5.0 [facility] CenterTroponin [id number] 05:33:00* Test Item Value Reference Range Interpretation Comments Troponin I (test code = WBL6211) 0.007 0-0.300 [facility] CenterCreatine Mzlene8839-47-52 05:31:00* Test Item Value Reference Range Interpretation Comments Creatine Kinase (test code = 2157-6) 47 29-168 [facility] CenterUrine Coarse Granular Hklbk5902-73-03 05:29:00* Test Item Value Reference Range Interpretation Comments Urine Coarse Granular Casts (test code = 98871-7) 1-5 >0 H [facility] CenterUrine White Blood Cell Yiqbj2443-17-38 05:29:00* Test Item Value Reference Range Interpretation Comments Urine White Blood Cell Casts (test code = 21606-1) 1-5 >0 H [facility] CenterUrine Aagnb2121-89-01 05:29:00* Test Item Value Reference Range Interpretation Comments Urine Mucus (test code = 8247-9) MANY RARE H [facility] CenterUrine [id number] 05:01:00* Test Item Value Reference Range Interpretation Comments Urine Test (test code = 2106-3) NEGATIVE NEGATIVE [facility]
[2020-03-20 06:31] LABS: BILIRUBIN,URINE NEGATIVE (NEGATIVE); CLARITY,URINE SL CLOUDY (CLEAR); COLOR,URINE YELLOW (YELLOW); KETONES,URINE NEGATIVE (NEGATIVE); LEUKOCYTE ESTERASE ,URINE TRACE (NEGATIVE); NITRITE,URINE NEGATIVE (NEGATIVE); PROTEIN,URINE DIPSTICK 2+ (NEGATIVE); URINE UROBILINOGEN 0.2 mg/dL (0.2 - 1)
[2020-03-20] MEDS ORDERED: SODIUM CHLORIDE 0.9% 1000ML 1,000 ML IV STA (06:31)
[2020-03-20 06:39] LABS: AMORPHOUS SEDIMENT,URINE FEW (FEW); BACTERIA,URINE MANY /HPF; EPITHELIAL CELLS,URINE FEW /LPF; RBC,URINE 21-50 /HPF (0-5); TRANSITIONAL EPI CELLS,URINE FEW
[2020-03-20 06:46] LABS: BASOPHILS # (AUTO) 0.1 (0.0-0.1); EOSINOPHILS # (AUTO) 0.3 (0.0-0.4); EOSINOPHILS % 2.9 % (0.0-6.0); HEMATOCRIT 32.2 % (34.2-44.1); HEMOGLOBIN 8.7 g/dL (12.0-16.0); LYMPHOCYTES # (AUTO) 0.7 (1.0-3.2); LYMPHOCYTES % 5.8 % (18.0-39.1); MEAN CORPUSCULAR HEMOGLOBIN 20.7 pg (28-32); MEAN CORPUSCULAR VOLUME 76.7 fL (81-99); MONOCYTES # (AUTO) 1.4 (0.2-0.8); MONOCYTES % 12.3 % (4.4-11.3); NEUTROPHILS # (AUTO) 8.8 (2.1-6.9); NEUTROPHILS % 76.7 % (38.7-80.0); PLATELET COUNT 358 x10e3/uL (140-360); RED CELL DISTRIBUTION WIDTH 18.9 % (11.7-14.4)
[2020-03-20] MEDS ORDERED: MORPHINE SULFATE INJ 4 MG/ML INJ 1ML IV STA (06:59)
[2020-03-20] MEDS ORDERED: ONDANSETRON HCL INJ 2MG/ML 2ML 2 MG/ML VIAL IV STA (06:59)
--- NOTE | 2020-03-20 06:59 | NUR ---
Report to NEVILLE Blanc
[2020-03-20 07:09] LABS: ALBUMIN 3.4 g/dL (3.5-5.0); ANION GAP 19.3 mmol/L (8-16); CALCIUM 8.4 mg/dL (8.4-10.2); CREATININE, SERUM 3.1 mg/dL (0.57-1.11); POTASSIUM 4.3 mmol/L (3.5-5.1)
[2020-03-20] MEDS ORDERED: CEFTRIAXONE SOD 1 GM VIAL ONE (07:10)
[2020-03-20] MEDS ORDERED: ONDANSETRON HCL INJ 2MG/ML 2ML 2 MG/ML VIAL ONE (07:11)
[2020-03-20] MEDS ORDERED: MORPHINE SULFATE INJ 4 MG/ML INJ 1ML ONE (07:11)
[2020-03-20] MEDS: CEFTRIAXONE SOD 1 GM/NS 50 ML 50 ML IV SCH ×2 (07:20→20:04)
--- NOTE | 2020-03-20 07:26 | Emergency Department Note ---
History of Present Illnes History of Present Illness Chief Complaint: Back Pain History of Present Illness This is a 49 year old female 49 Y/O FEMALE PT AAOX3 PRESENTS TO THE ER C/O LOWER BACK PAIN WITH INTERMITTENT NAUSEA ONSET X6 DAYS [employer]; PT WAS SEEN AT THIS FACILITY ON TUESDAY FOR SAME SYMPTOMS; PT STATES PAIN SUBSIDED ON TUESDAY AND TUESDAY AND PAIN RETURNED LAST NIGHT; PT HAD LABS WHICH SHOWED GFR 30 (LAST LABS HERE WAS IN 09/05 WITH GFR >60), CT ABD/PELVIS SHOWED NO STONES, MILD CIRRHOTIC CHANGES OF LIVER W/ SPLENOMEGALY AND TRACE ASCITES, ENLARGED UTERUS, NUMEROUS LUNG NODULES, RETROPERITONEAL AND ILIAC CHAIN LAD (REACTIVE VS METASTATIC). SHE WAS DISCHARGED WITH TYL #3 AND CIPRO FOR POSSIBLE INCOMPLETE RESOLUTION OF RECENT UTI TREATED WITH MACROBID ON 03/04 BY URGENT CARE CLINIC; V/S/S; RESP EVEN/UNLABORED; PT GIVEN SPECIMEN CUP FOR UA. Historian: Patient Arrival Mode: Car Rn Dialysis Required: No Onset (how long ago): day(s) () Location: LOWER BACK Quality: PAIN Radiation: Reports extremity (LEFT LEG) Severity: severe Onset quality: gradual Timing of current episode: intermittent Progression: waxing and waning Chronicity: new Context: Reports recent illness (TREATED FOR UTI 03/04) Relieving factors: none Exacerbating factors: none Associated symptoms: Reports denies other symptoms Past Medical/Family History Physician Review I have reviewed the patient's past medical and family history. Any updates have been documented here. Past Medical History Recent Fever: No Clinical Suspicion of Infectio: No New/Unexplained Change in Ment: No Past Medical History: Diabetes, Hypothyroidism, Anemia Past Surgical History: Cholecysctectomy Social History Smoking Cessation: Never Smoker Counseling Performed: No Alcohol Use: None Any Illegal Drug Use: No TB Exposure/Symptoms: No Physically hurt or threatened: No Family History Family history of heart diseas: No Other Last Tetanus: UTD Any Pre-Existing Lines (PICC,: No Review of Systems Review of Systems Constitutional: Reports no symptoms EENTM: Reports no symptoms Cardiovascular: Reports no symptoms Respiratory: Reports no symptoms Gastrointestinal: Reports other (FEELS DISTENDED) Genitourinary: Reports no symptoms Musculoskeletal: Reports as per HPI, Reports back pain Integumentary: Reports no symptoms Neurological: Reports no symptoms Psychological: Reports no symptoms Endocrine: Reports no symptoms Hematological/Lymphatic: Reports no symptoms Physical Exam Related Data Allergies: Coded Allergies: No Known Allergies (Unverified , 08/12/18) Triage Vital Signs Vital Signs Date Time Temp Pulse Resp B/P (MAP) Pulse Ox O2 Delivery O2 Flow Rate FiO2 03/20/20 05:52 97.6 84 20 140/71 100 Room Air Vital signs reviewed: Yes Physical Exam CONSTITUTIONAL Constitutional: Present well-developed, Present well-nourished, Present morbidly obese HENT HENT: Present normocephalic, Present atraumatic, Present oropharynx clear/moist, Present nose normal HENT L/R: Present left ext ear normal, Present right ext ear normal EYES Eyes: Reports PERRL, Reports conjunctivae normal NECK Neck: Present ROM normal PULMONARY Pulmonary: Present effort normal, Present breath sounds normal CARDIOVASCULAR Cardiovascular: Present regular rhythm, Present heart sounds normal, Present capillary refill normal, Present normal rate GASTROINTESTINAL Abdominal: Present soft, Present nontender, Present bowel sounds normal; Absent tender, Absent left CVA tenderness, Absent right CVA tenderness GENITOURINARY Genitourinary: Present exam deferred SKIN Skin: Present warm, Present dry MUSCULOSKELETAL Musculoskeletal: Present ROM normal, Present other (POINTS TO LOWER ABD WHERE SHE SAYS SHE HURTS - NON-TENDER ON EXAM, NEGATIVE SLR) NEUROLOGICAL Neurological: Present alert, Present oriented x 3, Present DTRs normal, Present no gross motor or sensory deficits; Absent sensory deficit, Absent weakness PSYCHOLOGICAL Psychological: Present mood/affect normal, Present judgement normal Results Laboratory Result Diagram: 03/20/20 0641 03/20/20 0641 Laboratory Laboratory Tests Test 03/20/20 06:41 03/20/20 05:54 White Blood Count 11.48 x10e3/uL (4.8-10.8) Red Blood Count 4.20 x10e6/uL (3.6-5.1) Hemoglobin 8.7 g/dL (12.0-16.0) Hematocrit 32.2 % (34.2-44.1) Mean Corpuscular Volume 76.7 fL (81-99) Mean Corpuscular Hemoglobin 20.7 pg (28-32) Mean Corpuscular Hemoglobin Concent 27.0 g/dL (31-35) Red Cell Distribution Width 18.9 % (11.7-14.4) Platelet Count 358 x10e3/uL (140-360) Neutrophils (%) (Auto) 76.7 % (38.7-80.0) Lymphocytes (%) (Auto) 5.8 % (18.0-39.1) Monocytes (%) (Auto) 12.3 % (4.4-11.3) Eosinophils (%) (Auto) 2.9 % (0.0-6.0) Basophils (%) (Auto) 1.0 % (0.0-1.0) Neutrophils # (Auto) 8.8 (2.1-6.9) Lymphocytes # (Auto) 0.7 (1.0-3.2) Monocytes # (Auto) 1.4 (0.2-0.8) Eosinophils # (Auto) 0.3 (0.0-0.4) Basophils # (Auto) 0.1 (0.0-0.1) Absolute Immature Granulocyte (auto 0.15 x10e3/uL (0-0.1) Sodium Level 128 mmol/L (136-145) Potassium Level 4.3 mmol/L (3.5-5.1) Chloride Level 96 mmol/L (98-107) Carbon Dioxide Level 17 mmol/L (22-29) Anion Gap 19.3 mmol/L (8-16) Blood Urea Nitrogen 42 mg/dL (7-26) Creatinine 3.10 mg/dL (0.57-1.11) Estimat Glomerular Filtration Rate 16 ML/MIN (60-) BUN/Creatinine Ratio 14 (6-25) Glucose Level 91 mg/dL (74-118) Calcium Level 8.4 mg/dL (8.4-10.2) Total Bilirubin 0.4 mg/dL (0.2-1.2) Aspartate Amino Transf (AST/SGOT) 41 IU/L (5-34) Alanine Aminotransferase (ALT/SGPT) 13 IU/L (0-55) Alkaline Phosphatase 59 IU/L (40-150) Total Protein 6.9 g/dL (6.5-8.1) Albumin 3.4 g/dL (3.5-5.0) Globulin 3.5 g/dL (2.3-3.5) Albumin/Globulin Ratio 1.0 (0.8-2.0) Urine Color Yellow (YELLOW) Urine Clarity Sl cloudy (CLEAR) Urine pH 5 (5 - 7) Urine Specific [place] >=1.030 (1.010-1.025) Urine Protein 2+ (NEGATIVE) Urine Glucose (UA) Negative (NEGATIVE) Urine Ketones Negative (NEGATIVE) Urine Blood Moderate (NEGATIVE) Urine Nitrite Negative (NEGATIVE) Urine Bilirubin Negative (NEGATIVE) Urine Urobilinogen 0.2 mg/dL (0.2 - 1) Urine Leukocyte Esterase Trace (NEGATIVE) Urine RBC 21-50 /HPF (0-5) Urine WBC 11-20 /HPF (0-5) Urine Epithelial Cells Few /LPF (NONE) Urine Transitional Epithelial Cells Few (NONE) Urine Amorphous Sediment Few (FEW) Urine Bacteria Many /HPF (NONE) Lab results reviewed: Yes Assessment & Plan Medical Decision Making MDM DIABETIC, OBESE PT WITH LBP RAD TO LEFT LEG DOWN TO FOOT, RECENT LABS SHOWING DECR RENAL FUNCTION AND A CT SHOWING RETROPERITONEAL LAD, ? CIRRHOTIC CHANGES OF LIVER AND ASCITES - CHECK CBC, CHEM, UA - R/O UTI, WORSENING RENAL INSUFF, ELECTROLYTE ABNL, WORSENING ANEMIA, LEUKOCYTOSIS Reassessment Reassessment GFR NOW 16 - WILL ADMIT TO DR Christopher MEDEIROS (PCP [facility]). I ORDERED LUMBAR AND ABD MRI - R/O ABD MASS, EPIDURAL SPINAL ABSCESS, ETC Assessment & Plan Final Impression: (1) Acute renal failure (2) Sciatica (3) Back pain (4) Retroperitoneal lymphadenopathy (5) Hyponatremia Depart Disposition: ADMITTED Last Vital Signs Date Time Temp Pulse Resp B/P (MAP) Pulse Ox O2 Delivery O2 Flow Rate FiO2 03/20/20 06:19 77 20 128/56 100 Room Air 03/20/20 05:52 97.6 Home Meds Reported Medications Levofloxacin (LEVAQUIN) 500 Mg Tablet, 500 MG PO DAILY, #5 TAB 08/19/18 Hydrocodone Bit/Acetaminophen (NORCO 7.5-325 TABLET) 1 Each Tablet, 1 EA PO Q4HR PRN for PAIN, #30 TAB 08/19/18 Ferrous Sulfate (FERROUS SULFATE) 325 Mg Tablet, 325 MG PO .EVERY OTHER DAY 08/12/18 Glipizide (GLIPIZIDE ER) 5 Mg Tab.er.24, 5 MG PO DAILY 08/12/18 Lisinopril (LISINOPRIL) 10 Mg Tablet, 10 MG PO DAILY 08/12/18 Levothyroxine Sodium (LEVOTHYROXINE SODIUM) 200 Mcg Tablet, 200 MCG PO DAILY 08/12/18 Medications in the ED Sodium Chloride 1,000 ml @ 0 mls/hr Q0M STAT IV Last administered on 03/20/20at 06:53; Admin Dose 999 MLS/HR; Start 03/20/20 at 06:31; Stop 03/20/20 at 06:49; Status DC Ceftriaxone Sodium 50 ml @ 100 mls/hr Q12H IV Last administered on 03/20/20at 07:20; Admin Dose 100 MLS/HR; Start 03/20/20 at 07:00; Stop 03/27/20 at 06:59 Morphine Sulfate 4 mg NOW STAT IV Last administered on 03/20/20at 07:20; Admin Dose 4 MG; Start 03/20/20 at 06:59; Stop 03/20/20 at 07:04; Status DC Ondansetron HCl 4 mg NOW STAT IV Last administered on 03/20/20at 07:20; Admin Dose 4 MG; Start 03/20/20 at 06:59; Stop 03/20/20 at 07:04; Status DC Ceftriaxone Sodium 1 gm STK-MED ONCE .ROUTE ; Start 03/20/20 at 07:10; Stop 03/20/20 at 07:04; Status DC Ondansetron HCl 4 mg STK-MED ONCE .ROUTE ; Start 03/20/20 at 07:11; Stop 03/20/20 at 07:04; Status DC Morphine Sulfate 4 mg STK-MED ONCE .ROUTE ; Start 03/20/20 at 07:11; Stop 03/20/20 at 07:05; Status DC JOS SALES MD Mar 20, 2020 07:26
[2020-03-20] MEDS ORDERED: ONDANSETRON HCL INJ 2MG/ML 2ML 2 MG/ML VIAL IV PRN (07:45)
[2020-03-20] MEDS ORDERED: DEXTROSE 50% SYRINGE 50 ML IV PRN (07:45)
--- OUTSIDE RECORDS SUMMARY | 2020-03-20 07:50 | XMS REPORT | Continuity of Care Document ---
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 Name Role Phone LINDATad PIERRE DO STACEY PCP ROMERO, MARCELLO Attphys Unavailable MEDEIROS, SOUHEIL Attphys Unavailable MEDEIROS, SOUHEIL Admphys Unavailable Payers Payer Name Policy Type Policy Number Effective Date Expiration Date S sarina [employer] [id number] 2020 00:00:00 [facility] A[employer]na Pos [id number] 2017 00:00:00 [facility] Problems Condition Name Condition Details Condition Category Status Onset Date Resolution Date Last Treatment Date Treating Clinician Comments Source Cholecystitis Cholecystitis Problem Active [facility] Multiple gallstones Problem Active [facility] Pancreatitis due to biliary obstruction Problem Active [facility] Allergies, Adverse Reactions, Alerts This patient has no known allergies or adverse reactions. Social History Social Habit Start Date Stop Date Quantity Comments Source Sex Assigned At 1970 00:00:00 1970 00:[birth year]:00 Female [facility] Medications Ordered Medication Name Filled Medication Name Start Date Stop Da te Current Medication? Ordering Clinician Indication Dosage Frequency Signature (SIG) Comments Components Source Ferrous Sulfate Ferrous Sulfate Yes 325 .every O ther Day [facility] Glipizide (Glipizide Er) 5 Mg TAB.ER.24 Glipizide (Glipizide Er) 5 Mg TAB.ER.24 Yes 5 Daily [facility] Hydrocodone Bit/Acetaminophen ([place] 7.5-325 Tablet) 1 Each TABLET Hydrocodone Bit/Acetaminophen ([place] 7.5-325 Tablet) 1 Each TABLET Yes 1 Every 4 Hours as needed for Pain [facility] Levofloxacin (Levaquin) 500 Mg TABLET Levofloxacin (Levaquin) 500 M g TABLET Yes 500 Daily [facility] Levothyroxine Sodium Levothyroxine Sodium Yes 200 Daily [facility] Lisinopril Lisinopril Yes 10 Daily I [facility] Vital Signs Vital Name Observation Time Observation Value Comments Source Weight 2020-03-15 02:17:00 330 [lb_av] [facility] BMI (Body Mass Index) 2020-03-15 02:17:00 48.7 kg/m2 [facility] Procedures Procedure Date / Time Performed Performing Clinician [facility] e CT of abdomen and pelvis without contrast 2020-03-15 00:00:00 [facility] Plan of Care Planned Activity Planned Date Details Comments Source Instructions Sciatica [facility] Instructions Back Pain [facility] Instructions Lymphadenopathy [facility] Encounters Start Date/Time End Date/Time Encounter Type Admission Type Attendi [facility] Facility Care Department Encounter ID Source 2020-03-15 02:18:00 2020-03-15 04:36:00 Departed Emergency Room 1 MARCELLO ROMERO [facility] [id number] [facility] 2018-08-12 06:03:00 2018-08-19 14:53:00 Discharged Inpatient 1 MITCHELL MEDEIROS [facility] [id number] [facility] Results Test Description Test Time Test Comments Results Result Comments Source CT ABDOMEN/PELVIS WO 2020-03-15 03:55:00 [facility] [address] [place] [address] Patient Name: PK JONES MR #: [id number] : 1970 Age/Sex: 49/F Req #: [id number] Adm Physician: Ordered by: MARCELLO ROMERO DO Report #: [id number] Location: ER Room/Bed: Procedure: [id number] CT/CT ABDOMEN/PELVIS WO Exam Date: 03/15/20 Exam [...] Count (test code = 6690-2) 15.94 4.8-10.8 [facility] automated count (number/volume)2020-03-15 02:32:00* Test Item Value Reference Range Interpretation Comments Red Blood Count (test code = 789-8) 4.02 3.6-5.1 [facility] Area[facility] hemoglobin measurement (moles/volume)2020-03-15 02:32:00* Test Item Value Reference Range Interpretation Comments Hemoglobin (test code = 79577-4) 8.6 12.0-16.0 [facility] AreaAutomated blood hematocrit (volume fraction)2020-03-15 02:32:00* Test Item Value Reference Range Interpretation Comments Hematocrit (test code = 4544-3) 30.0 34.2-44.1 [facility] AreaAutomated erythrocyte mean corpuscular zpiljx7228-32-90 02:32:00* Test Item Value Reference Range Interpretation Comments Mean Corpuscular Volume (test code = 787-2) 74.6 81-99 [facility] AreaAutomated erythrocyte mean corpuscular hemoglobin (mass per erythrocyte)2020-03-15 02:32:00* Test Item Value Reference Range Interpretation Comments Mean Corpuscular Hemoglobin (test code = 785-6) 21.4 28-32 [facility] AreaAutomated erythrocyte mean corpuscular hemoglobin concentration measurement (mass/volume)2020-03-15 02:32:00* Test Item Value Reference Range Interpretation Comments Mean Corpuscular Hemoglobin Concent (test code = 786-4) 28.7 31-35 [facility] AreaRDW SgsLl-Mtp1943-13-26 02:32:00* Test Item Value Reference Range Interpretation Comments Red Cell Distribution Width (test code = 10035-0) 18.3 11.7 -14.4 [facility] AreaAutomated blood platelet count (count/volume)2020-03-15 02:32:00* Test Item Value Reference Range Interpretation Comments Platelet Count (test code = 777-3) 422 140-360 [facility] AreaAutomated blood segmented neutrophil count as percentage of total qwntkljcgz5400-45-61 02:32:00* Test Item Value Reference Range Interpretation Comments Neutrophils (%) (Auto) (test code = 18617-3) 82.5 38.7-80.0 [facility] AreaAutomated blood lymphocyte count as percentage ot total iemthrszwm1731-47-75 02:32:00* Test Item Value Reference Range Interpretation Comments Lymphocytes (%) (Auto) (test code = 736-9) 6.1 18.0-39.1 [facility] AreaAutomated blood monocyte count as percentage of total tqqaedluty5137-33-89 02:32:00* Test Item Value Reference Range Interpretation Comments Monocytes (%) (Auto) (test code = 5905-5) 9.2 4.4-11.3 [facility] AreaAutomated blood eosinophil count as percentage of total tisqdnvcqa9529-35-99 02:32:00* Test Item Value Reference Range Interpretation Comments Eosinophils (%) (Auto) (test code = 713-8) 0.6 0.0-6.0 [facility] AreaAutomated blood basophil count as percentage of total kphjpedobc6470-44-09 02:32:00* Test Item Value Reference Range Interpretation Comments Basophils (%) (Auto) (test code = 706-2) 0.5 0.0-1.0 [facility] AreaFluoroscopic procedure less than one hour kbharasv1306-55-19 02:32:00* Test Item Value Reference Range Interpretation Comments IM GRANULOCYTES % (test code = IM GRANULOCYTES %) 1.1 0.0- 1.0 [facility] AreaAutomated blood neutrophil count 2020-03-15 02:32:00* Test Item Value Reference Range Interpretation Comments Neutrophils # (Auto) (test code = 751-8) 13.2 2.1-6.9 [facility] AreaBlood lymphocytes count (number/volume) 2020-03-15 02:32:00* Test Item Value Reference Range Interpretation Comments Lymphocytes # (Auto) (test code = 82170-5) 1.0 1.0-3.2 [facility] AreaBlood monocytes automated count (number/volume)2020-03-15 02:32:00* Test Item Value Reference Range Interpretation Comments Monocytes # (Auto) (test code = 742-7) 1.5 0.2-0.8 [facility] AreaAutomated blood eosinophil count 2020-03-15 02:32:00* Test Item Value Reference Range Interpretation Comments Eosinophils # (Auto) (test code = 711-2) 0.1 0.0-0.4 [facility] AreaAutomated blood basophil count (count/volume)2020-03-15 02:32:00* Test Item Value Reference Range Interpretation Comments Basophils # (Auto) (test code = 704-7) 0.1 0.0-0.1 [facility] AreaFluoroscopic procedure less than one hour badwyicf9242-47-05 02:32:00* Test Item Value Reference Range Interpretation Comments Absolute Immature Granulocyte (auto (amanda t code = Absolute Immature Granulocyte (auto) 0.18 0-0.1 [facility] sodium measurement (moles/volume)2020-03-15 02:32:00* Test Item Value Reference Range Interpretation Comments Sodium Level (test code = 2951-2) 128 136-145 [facility]ptownerum or plasma potassium measurement (moles/volume)2020-03-15 02:32:00* Test Item Value Reference Range Interpretation Comments Potassium Level (test code = 2823-3) 4.3 3.5-5.1 [facility]ownerum or plasma chloride measurement (moles/volume)2020-03-15 02:32:00* Test Item Value Reference Range Interpretation Comments Chloride Level (test code = 2075-0) 93 98-107 [facility]ptownerum or plasma carbon dioxide, total measurement (moles/volume)2020-03-15 02:32:00* Test Item Value Reference Range Interpretation Comments Carbon Dioxide Level (test code = 2028-9) 22 22-29 [facility]ptownerum or plasma anion bce7667-19-44 02:32:00* Test Item Value Reference Range Interpretation Comments Anion Gap (test code = 94427-2) 17.3 8-16 [facility]ownerum or plasma urea nitrogen measurement (mass/volume)2020-03-15 02:32:00* Test Item Value Reference Range Interpretation Comments Blood Urea Nitrogen (test code = 3094-0) 22 7-26 [facility]ownerum or plasma creatinine measurement (mass/volume)2020-03-15 02:32:00* Test Item Value Reference Range Interpretation Comments Creatinine (test code = 2160-0) 1.77 0.57-1.11 [facility]ptownerum or plasma urea nitrogen/creatinine mass pzixj7595-08-93 02:32:00* Test Item Value Reference Range Interpretation Comments BUN/Creatinine Ratio (test code = 3097-3) 12 6-25 [facility] AreaEstimated glomerular filtration rate (GFR) cydnuqvctdzaj9453-84-57 02:32:00* Test Item Value Reference Range Interpretation Comments Estimat Glomerular Filtration Rate (test code = 840817073) 30 >60 Ranges were taken from the National Kidney Disease Education Program and the [facility] literature.Reference ranges:60 or greater: Stcqbo25-28 ( for 3 consecutive months): Chronic kidney disease 15 or less: Kidney failureCorpus Christi Medical Center Bay AreaGlucose pwswoqziwad1212-78-13 02:32:00* Test Item Value Reference Range Interpretation Comments Glucose Level (test code = ACS6833) 165 74-118 [facility] Uptownerum or plasma calcium measurement (mass/volume)2020-03-15 02:32:00* Test Item Value Reference Range Interpretation Comments Calcium Level (test code = 96134-2) 8.9 8.4-10.2 [facility] Uptownerum or plasma total bilirubin measurement (mass/volume)2020-03-15 02:32:00* Test Item Value Reference Range Interpretation Comments Total Bilirubin (test code = 1975-2) 0.6 0.2-1.2 [facility] AreaFluoroscopic procedure less than one hour gpifjkeh6148-46-75 02:32:00* Test Item Value Reference Range Interpretation Comments Aspartate Amino Transf (AST/SGOT) (test code = Aspartate Amino Transf (AST/SGOT)) 25 5-34 [facility] Uptownerum or plasma alanine aminotransferase measurement (enzymatic activity/volume)2020-03-15 02:32:00* Test Item Value Reference Range Interpretation Comments Alanine Aminotransferase (ALT/SGPT) (test code = 1742-6) 11 0-55 [facility] Uptownerum or plasma protein measurement (mass/volume)2020-03-15 02:32:00* Test Item Value Reference Range Interpretation Comments Total Protein (test code = 2885-2) 7.7 6.5-8.1 [facility] Uptownerum or plasma albumin measurement (mass/volume)2020-03-15 02:32:00* Test Item Value Reference Range Interpretation Comments Albumin (test code = 1751-7) 4.0 3.5-5.0 [facility] AreaPlasma globulin measurement (mass/volume) 2020-03-15 02:32:00* Test Item Value Reference Range Interpretation Comments Globulin (test code = 95127-5) 3.7 2.3-3.5 [facility] Uptownerum or plasma albumin/globulin mass gcqqx7183-88-75 02:32:00* Test Item Value Reference Range Interpretation Comments Albumin/Globulin Ratio (test code = 1759-0) 1.1 0.8-2.0 [facility] Uptownerum or plasma alkaline phosphatase measurement (enzymatic activity/volume)2020-03-15 02:32:00* Test Item Value Reference Range Interpretation Comments Alkaline Phosphatase (test code = 6768-6) 77 40-150 [facility] AreaUrine color ahmkzilpmayxi0687-70-79 02:17:00* Test Item Value Reference Range Interpretation Comments Urine Color (test code = 5778-6) YELLOW YELLOW [facility] AreaUrine hbgqrwu6728-62-24 02:17:00* Test Item Value Reference Range Interpretation Comments Urine Clarity (test code = 71496-0) CLEAR CLEAR [facility] Uptownpecific gravity of Urine by Test strip 2020-03-15 02:17:00* Test Item Value Reference Range Interpretation Comments Urine Specific Elbert (test code = 5811-5) 1.025 1.010-1.02 5 [facility] AreaUrine pH measurement by automated test wxztk6822-49-52 02:17:00* Test Item Value Reference Range Interpretation Comments Urine pH (test code = 77381-5) 5.5 5-7 [facility] AreaUrine leukocyte esterase detection by nnkgujmc8742-59-77 02:17:00* Test Item Value Reference Range Interpretation Comments Urine Leukocyte Esterase (test code = 5799-2) NEGATIVE NEGATIVE [facility] AreaUrine nitrite piotlreuc8581-22-88 02:17:00* Test Item Value Reference Range Interpretation Comments Urine Nitrite (test code = 25191-8) NEGATIVE NEGATIVE [facility] AreaUrine protein measurement by test strip (mass/volume)2020-03-15 02:17:00* Test Item Value Reference Range Interpretation Comments Urine Protein (test code = 5804-0) >=300 NEGATIVE [facility] AreaUrine glucose zbiktrhmr3564-72-22 02:17:00* Test Item Value Reference Range Interpretation Comments Urine Glucose (UA) (test code = 2349-9) NEGATIVE NEGATIVE [facility] AreaUrine ketones detection by automated test tkyfe1783-70-53 02:17:00* Test Item Value Reference Range Interpretation Comments Urine Ketones (test code = 23947-7) NEGATIVE NEGATIVE [facility] AreaUrine urobilinogen measurement by test strip (mass/volume)2020-03-15 02:17:00* Test Item Value Reference Range Interpretation Comments Urine Urobilinogen (test code = 65336-0) 1 0.2-1 [facility] AreaUrine total bilirubin measurement (mass/volume)2020-03-15 02:17:00* Test Item Value Reference Range Interpretation Comments Urine Bilirubin (test code = 1978-6) SMALL NEGATIVE [facility] AreaUrine erythrocytes makqvqlum5053-30-79 02:17:00* Test Item Value Reference Range Interpretation Comments Urine Blood (test code = 81269-3) MODERATE NEGATIVE [facility] AreaAutomated urine sediment leukocyte count by microscopy (number/high power field)2020-03-15 02:17:00* Test Item Value Reference Range Interpretation Comments Urine WBC (test code = 5821-4) 0-5 0-5 [facility] AreaErythrocytes detection in urine sediment by light muygiqfdua2250-49-86 02:17:00* Test Item Value Reference Range Interpretation Comments Urine RBC (test code = 19677-0) 6-10 0-5 [facility] AreaBacteria detection in urine sediment by light axtgpajxih0598-89-76 02:17:00* Test Item Value Reference Range Interpretation Comments Urine Bacteria (test code = 24381-9) FEW NONE [facility] AreaEpithelial cells detection in urine sediment by light jicktdlhnl7221-60-19 02:17:00* Test Item Value Reference Range Interpretation Comments Urine Epithelial Cells (test code = 04413-1) MODERATE NONE [facility] AreaAmorphous sediment detection in urine sediment by light ggojsxkzhk7928-05-13 02:17:00* Test Item Value Reference Range Interpretation Comments Urine Amorphous Sediment (test code = 8246-1) FEW FEW [facility] AreaBedside Cohhzgf8542-88-65 12:25:00* Test Item Value Reference Range Interpretation Comments Bedside Glucose (test code = 67578-5) 176 70-120 H Meter ID: [id number] Christi Medical Center Bay AreaUrine KKN5521-56-07 16:50:00* Test Item Value Reference Range Interpretation Comments Urine WBC (test code = 5821-4) NONE 0-5 [facility] AreaUrine [id number] 16:50:00* Test Item Value Reference Range Interpretation Comments Urine RBC (test code = 32247-1) 11-20 0-5 H [facility] AreaUrine Opvfoyok3529-60-22 16:50:00* Test Item Value Reference Range Interpretation Comments Urine Bacteria (test code = 64670-8) MODERATE NONE H [facility] AreaUrine Epithelial Pbqau4998-77-26 16:50:00 * Test Item Value Reference Range Interpretation Comments Urine Epithelial Cells (test code = 95893-3) MODERATE NONE [facility] AreaUrine Liurd7392-24-36 16:38:00* Test Item Value Reference Range Interpretation Comments Urine Color (test code = 5778-6) YELLOW YELLOW [facility] AreaUrine Idornuh7321-44-13 16:38:00* Test Item Value Reference Range Interpretation Comments Urine Clarity (test code = 65514-2) SL CLOUDY CLEAR [facility] AreaUrine Specific Nwselmq0777-65-63 16:38:00 * Test Item Value Reference Range Interpretation Comments Urine Specific Elbert (test code = 5811-5) 1.030 1.010-1.02 5 H [facility] AreaUrine nN4577-36-56 16:38:00* Test Item Value Reference Range Interpretation Comments Urine pH (test code = 69417-2) 6 5-7 [facility] AreaUrine Leukocyte Ukxvqrvq5344-43-45 16:38:00* Test Item Value Reference Range Interpretation Comments Urine Leukocyte Esterase (test code = 5799-2) NEGATIVE NEGATIVE [facility] AreaUrine Rllrrai5532-44-04 16:38:00* Test Item Value Reference Range Interpretation Comments Urine Nitrite (test code = 52520-6) NEGATIVE NEGATIVE [facility] AreaUrine Yeiepcy2500-05-70 16:38:00* Test Item Value Reference Range Interpretation Comments Urine Protein (test code = 5804-0) 2+ NEGATIVE H [facility] AreaUrine Glucose (UA)2018-08-18 16:38:00* Test Item Value Reference Range Interpretation Comments Urine Glucose (UA) (test code = 2349-9) NEGATIVE NEGATIVE [facility] AreaUrine Uedjxfd1430-81-31 16:38:00* Test Item Value Reference Range Interpretation Comments Urine Ketones (test code = 25991-9) TRACE NEGATIVE H [facility] AreaUrine Ocpflbujucem4634-49-20 16:38:00* Test Item Value Reference Range Interpretation Comments Urine Urobilinogen (test code = 19915-7) 0.2 0.2-1 [facility] AreaUrine Dhgzjxuev9848-03-79 16:38:00* Test Item Value Reference Range Interpretation Comments Urine Bilirubin (test code = 1978-6) 1+ NEGATIVE H [facility] AreaUrine Pingb3795-32-60 16:38:00* Test Item Value Reference Range Interpretation Comments Urine Blood (test code = 47058-9) 4+ NEGATIVE H [facility] Uptownodium Lvmwm1797-60-37 06:21:00* Test Item Value Reference Range Interpretation Comments Sodium Level (test code = 2951-2) 140 136-145 [facility] AreaPotassium Zbtlr1034-51-22 06:21:00* Test Item Value Reference Range Interpretation Comments Potassium Level (test code = 2823-3) 3.3 3.5-5.1 L [facility] AreaChloride Sqesg4203-66-47 06:21:00* Test Item Value Reference Range Interpretation Comments Chloride Level (test code = 2075-0) 112 98-107 H [facility] AreaCarbon Dioxide Ysght2823-18-24 06:21:00* Test Item Value Reference Range Interpretation Comments Carbon Dioxide Level (test code = 2028-9) 23 22-29 [facility] AreaAnion Mdy9992-70-12 06:21:00* Test Item Value Reference Range Interpretation Comments Anion Gap (test code = 83125-5) 8.3 8-16 [facility] AreaBlood Urea Qbzlbpgd4665-52-37 06:21:00* Test Item Value Reference Range Interpretation Comments Blood Urea Nitrogen (test code = 3094-0) 16 7-26 [facility] AreaCreatinine2019-03-01 06:21:00* Test Item Value Reference Range Interpretation Comments Creatinine (test code = 2160-0) 0.82 0.57-1.11 [facility] AreaBUN/Creatinine Jtpmx3261-46-45 06:21:00* Test Item Value Reference Range Interpretation Comments BUN/Creatinine Ratio (test code = 3097-3) 20 6-25 [facility] AreaEstimat Glomerular Filtration Rate 2018-08-18 06:21:00* Test Item Value Reference Range Interpretation Comments Estimat Glomerular Filtration Rate (test code = 324248808) > 60 >60 Ranges were taken from the National Kidney Disease Education Program and the [facility] literature.Reference ranges:60 or greater: Ccudxv20-39 ( for 3 consecutive months): Chronic kidney disease 15 or less: Kidney failureCorpus Christi Medical Center Bay AreaGlucose Jhtqg6054-57-60 06:21:00* Test Item Value Reference Range Interpretation Comments Glucose Level (test code = WJP5241) 190 74-118 H [facility] AreaCalcium Tjbuz1595-46-63 06:21:00* Test Item Value Reference Range Interpretation Comments Calcium Level (test code = 46124-9) 7.8 8.4-10.2 L [facility] AreaTotal Ytxhbygcv4797-41-84 06:21:00* Test Item Value Reference Range Interpretation Comments Total Bilirubin (test code = 1975-2) 0.8 0.2-1.2 [facility] AreaAspartate Amino Transf (AST/SGOT) 2018-08-18 06:21:00* Test Item Value Reference Range Interpretation Comments Aspartate Amino Transf (AST/SGOT) (test code = Aspartate Amino Transf (AST/SGOT)) 20 5-34 [facility] AreaAlanine Aminotransferase (ALT/SGPT) 2018-08-18 06:21:00* Test Item Value Reference Range Interpretation Comments Alanine Aminotransferase (ALT/SGPT) (test code = 1742-6) 46 0-55 [facility] AreaTotal Hgmlncr9996-75-04 06:21:00* Test Item Value Reference Range Interpretation Comments Total Protein (test code = 2885-2) 5.5 6.5-8.1 L [facility] AreaAlbumin2019-03-01 06:21:00* Test Item Value Reference Range Interpretation Comments Albumin (test code = 1751-7) 2.0 3.5-5.0 L [facility] AreaGlobulin2019-03-01 06:21:00* Test Item Value Reference Range Interpretation Comments Globulin (test code = 05764-9) 3.5 2.3-3.5 [facility] AreaAlbumin/Globulin Csujb8407-43-94 06:21:00 * Test Item Value Reference Range Interpretation Comments Albumin/Globulin Ratio (test code = 1759-0) 0.6 0.8-2.0 L [facility] AreaAlkaline Degbluzauha2608-90-61 06:21:00* Test Item Value Reference Range Interpretation Comments Alkaline Phosphatase (test code = 6768-6) 100 40-150 [facility] AreaAmylase Utedc6362-77-38 06:21:00* Test Item Value Reference Range Interpretation Comments Amylase Level (test code = 1798-8) 61 25-125 [facility] AreaWhite Blood Lwwba1698-99-91 06:03:00* Test Item Value Reference Range Interpretation Comments White Blood Count (test code = 6690-2) 14.29 4.8-10.8 H [facility] AreaRed Blood Icgke7828-21-28 06:03:00* Test Item Value Reference Range Interpretation Comments Red Blood Count (test code = 789-8) 3.81 3.6-5.1 [facility] AreaHemoglobin2019-03-01 06:03:00* Test Item Value Reference Range Interpretation Comments Hemoglobin (test code = 88762-2) 9.5 12.0-16.0 L [facility] AreaHematocrit2019-03-01 06:03:00* Test Item Value Reference Range Interpretation Comments Hematocrit (test code = 4544-3) 32.2 34.2-44.1 L [facility] AreaMean Corpuscular [id number] 06:03:00* Test Item Value Reference Range Interpretation Comments Mean Corpuscular Volume (test code = 787-2) 84.5 81-99 [facility] AreaMean Corpuscular Ehggoduovq9791-83-07 06:03:00* Test Item Value Reference Range Interpretation Comments Mean Corpuscular Hemoglobin (test code = 785-6) 24.9 28-32 L [facility] AreaMean Corpuscular Hemoglobin Concent 2018-08-18 06:03:00* Test Item Value Reference Range Interpretation Comments Mean Corpuscular Hemoglobin Concent (test code = 786-4) 29.5 31-35 L [facility] AreaRed Cell Distribution [id number] 06:03:00* Test Item Value Reference Range Interpretation Comments Red Cell Distribution Width (test code = 29736-4) 16.7 11.7 -14.4 H [facility] AreaPlatelet Atlnn5617-41-44 06:03:00* Test Item Value Reference Range Interpretation Comments Platelet Count (test code = 777-3) 254 140-360 [facility] AreaNeutrophils (%) (Auto)2018-08-18 06:03:00 * Test Item Value Reference Range Interpretation Comments Neutrophils (%) (Auto) (test code = 80181-1) 75.4 38.7-80.0 [facility] AreaLymphocytes (%) (Auto)2018-08-18 06:03:00 * Test Item Value Reference Range Interpretation Comments Lymphocytes (%) (Auto) (test code = 736-9) 8.9 18.0-39.1 L [facility] AreaMonocytes (%) (Auto)2018-08-18 06:03:00* Test Item Value Reference Range Interpretation Comments Monocytes (%) (Auto) (test code = 5905-5) 8.4 4.4-11.3 [facility] AreaEosinophils (%) (Auto)2018-08-18 06:03:00 * Test Item Value Reference Range Interpretation Comments Eosinophils (%) (Auto) (test code = 713-8) 2.5 0.0-6.0 [facility] AreaBasophils (%) (Auto)2018-08-18 06:03:00* Test Item Value Reference Range Interpretation Comments Basophils (%) (Auto) (test code = 706-2) 0.5 0.0-1.0 [facility] AreaIM GRANULOCYTES %2018-08-18 06:03:00* Test Item Value Reference Range Interpretation Comments IM GRANULOCYTES % (test code = IM GRANULOCYTES %) 4.3 0.0- 1.0 H [facility] AreaNeutrophils # (Auto)2018-08-18 06:03:00* Test Item Value Reference Range Interpretation Comments Neutrophils # (Auto) (test code = 751-8) 10.8 2.1-6.9 H [facility] AreaLymphocytes # (Auto)2018-08-18 06:03:00* Test Item Value Reference Range Interpretation Comments Lymphocytes # (Auto) (test code = 83786-4) 1.3 1.0-3.2 [facility] AreaMonocytes # (Auto)2018-08-18 06:03:00* Test Item Value Reference Range Interpretation Comments Monocytes # (Auto) (test code = 742-7) 1.2 0.2-0.8 H [facility] AreaEosinophils # (Auto)2018-08-18 06:03:00* Test Item Value Reference Range Interpretation Comments Eosinophils # (Auto) (test code = 711-2) 0.4 0.0-0.4 [facility] AreaBasophils # (Auto)2018-08-18 06:03:00* Test Item Value Reference Range Interpretation Comments Basophils # (Auto) (test code = 704-7) 0.1 0.0-0.1 [facility] AreaAbsolute Immature Granulocyte (auto 2018-08-18 06:03:00* Test Item Value Reference Range Interpretation Comments Absolute Immature Granulocyte (auto (amanda t code = Absolute Immature Granulocyte (auto) 0.62 0-0.1 H [facility] AreaCHOLANGIOGRAM [id number] 08:32:00 [facility] [address] [address] Patient Name: PK JONES MR #: [id number] : 1970 Age/Sex: 47/F Req #: [id number] Adm Physician: MITCHELL MEDEIROS MD Ordered by: DULCE MARIA NORIEGA MD Report #: [id number] Location: MED/SURG Room/Bed: [facility] Procedure: [id number] DX/CHOLANGIOGRAM INTROP Exam Date: 08/15/18 Exam Omer [...] 08/17/18838 COPY TO: DULCE MARIA NORIEGA MD Pmvcox7362-73-64 08:06:00* Test Item Value Reference Range Interpretation Comments Lipase (test code = 3040-3) 23 8-78 [facility] AreaDifferential Total Cells Counted 2018-08-13 10:03:00* Test Item Value Reference Range Interpretation Comments Differential Total Cells Counted (test code = Differlissa tial Total Cells Counted) 100 [facility] AreaNeutrophils % (Manual)2018-08-13 10:03:00 * Test Item Value Reference Range Interpretation Comments Neutrophils % (Manual) (test code = 81599-8) 90 40-74 H [facility] AreaBand Neutrophils %2018-08-13 10:03:00* Test Item Value Reference Range Interpretation Comments Band Neutrophils % (test code = 764-1) 5 [facility] AreaMonocytes % (Manual)2018-08-13 10:03:00* Test Item Value Reference Range Interpretation Comments Monocytes % (Manual) (test code = 744-3) 5 3.4-9.0 [facility] AreaPlatelet Ewpkwnpi5607-54-21 10:03:00* Test Item Value Reference Range Interpretation Comments Platelet Estimate (test code = 98382-5) ADEQUATE [facility] AreaPlatelet Morphology Zvsatdq4622-56-98 10:03:00* Test Item Value Reference Range Interpretation Comments Platelet Morphology Comment (test code = 22193-0) NORMAL [facility] AreaRed Cell Morphology Ronnqxa5451-43-58 10:03:00* Test Item Value Reference Range Interpretation Comments Red Cell Morphology Comment (test code = 6742-1) NORMAL [facility] AreaVitamin B12 Ioosw8521-19-29 07:35:00* Test Item Value Reference Range Interpretation Comments Vitamin B12 Level (test code = 77376-4) 370 213-816 [facility] AreaFolate2019-02-24 07:35:00* Test Item Value Reference Range Interpretation Comments Folate (test code = 2284-8) 6.3 7.0-15.4 L [facility] AreaFerritin2019-02-24 06:48:00* Test Item Value Reference Range Interpretation Comments Ferritin (test code = 2276-4) 32.44 4.63-204.00 [facility] AreaDirect Msybxbhcu6618-25-89 06:29:00* Test Item Value Reference Range Interpretation Comments Direct Bilirubin (test code = 30915-2) 1.0 0.0-0.5 H [facility] AreaIron Lkyid4794-02-99 06:28:00* Test Item Value Reference Range Interpretation Comments Iron Level (test code = 2498-4) 12 50-170 L [facility] AreaTotal Iron Binding Xknysuij3358-77-19 06:28:00* Test Item Value Reference Range Interpretation Comments Total Iron Binding Capacity (test code = 2500-7) 266 261-4 78 [facility] AreaPercent Iron Cseibflqtz9994-91-99 06:28:00* Test Item Value Reference Range Interpretation Comments Percent Iron Saturation (test code = 2502-3) 5 15-50 L [facility] AreaTransferrin2019-02-24 06:28:00* Test Item Value Reference Range Interpretation Comments Transferrin (test code = 3034-6) 190 180-382 [facility] AreaPercent Reticulocyte Jezeq1294-80-94 06:19:00* Test Item Value Reference Range Interpretation Comments Percent Reticulocyte Count (test code = 22034-2) 1.8 0.8-2 .2 [facility] AreaUS LMVRZDYGRIC5301-97-07 06:12:00 [facility] [address] [place] [address] Patient Name: PK JONES MR #: [id number] : 1970 Age/Sex: 47/F Req #: [id number] Adm Physician: MITCHELL MEDEIROS MD Ordered by: BOYD GOMEZ MD Report #: [id number] Location: [facility] Room/Bed: [address] [address] Procedure: [id number] US/US GALLBLADDER Exam Date: [...] COPY TO: BOYD GOMEZ MD Creatine Kinase [id number] 05:33:00* Test Item Value Reference Range Interpretation Comments Creatine Kinase MB (test code = 83253-1) 2.40 0-5.0 [facility] AreaTroponin Q8915-84-90 05:33:00* Test Item Value Reference Range Interpretation Comments Troponin I (test code = CZK5703) 0.007 0-0.300 [facility] AreaCreatine Xebvbu4200-79-16 05:31:00* Test Item Value Reference Range Interpretation Comments Creatine Kinase (test code = 2157-6) 47 29-168 [facility] AreaUrine Coarse Granular Iocyn2711-53-72 05:29:00* Test Item Value Reference Range Interpretation Comments Urine Coarse Granular Casts (test code = 65897-9) 1-5 >0 H [facility] AreaUrine White Blood Cell Hsabu6318-98-84 05:29:00* Test Item Value Reference Range Interpretation Comments Urine White Blood Cell Casts (test code = 23293-3) 1-5 >0 H [facility] AreaUrine Pdqso3537-08-92 05:29:00* Test Item Value Reference Range Interpretation Comments Urine Mucus (test code = 8247-9) MANY RARE H [facility] AreaUrine Xvob3110-87-03 05:01:00* Test Item Value Reference Range Interpretation Comments Urine Test (test code = 2106-3) NEGATIVE NEGATIVE [facility]
[2020-03-20] MEDS: SODIUM CHLORIDE 0.9% 1000ML 1,000 ML IV SCH ×2 (07:56→17:26)
[2020-03-20] MEDS ORDERED: CYCLOBENZAPRINE5 MG (07:58)
[2020-03-20] MEDS ORDERED: CIPROFLOXACIN500 MG PO (07:58)
[2020-03-20] MEDS ORDERED: LISINOPRIL20 MG (07:58)
[2020-03-20] MEDS ORDERED: LEVOTHYROXINE175 MCG PO (07:58)
[2020-03-20] MEDS ORDERED: TYLENOL # 31 EA (07:58)
[2020-03-20] MEDS ORDERED: GLIPIZIDE5 MG (07:58)
[2020-03-20] MEDS ORDERED: PHENAZOPYRIDIN200 MG (07:58)
--- NOTE | 2020-03-20 08:21 | NUR ---
calling to give report
--- NOTE | 2020-03-20 08:30 | NUR ---
eating breakfast, will take up after.
[2020-03-20] MEDS ORDERED: GLIPIZIDE ER5 MG PO (08:54)
[2020-03-20] MEDS ORDERED: NAPROXEN250 MG PO (08:55)
[2020-03-20 09:16] VITALS: BP 120/69
[2020-03-20 09:17] VITALS: BP 120/69
[2020-03-20 10:46] LABS: ANISOCYTOSIS SLIGHT; BAND NEUTROPHILS % (MANUAL) 1 %; EOSINOPHILS % (MANUAL) 7 % (0-7); HYPOCHROMASIA SLIGHT; LYMPHOCYTES % (MANUAL) 2 % (19-48); MONOCYTES % (MANUAL) 4 % (3.4-9.0); MYELOCYTES % (MANUAL) 2 % (0-0); NEUTROPHILS % (MANUAL) 83 % (40-74); POLYCHROMASIA FEW
[2020-03-20 10:47] LABS: OVALOCYTES FEW; PLATELET ESTIMATE ADEQUATE; PLATELET MORPHOLOGY COMMENT NORMAL; RBC MORPHOLOGY COMMENT ABNORMAL; TEAR DROP CELLS FEW
[2020-03-20] MEDS: INSULIN LISPRO 100 UNIT/1 ML 3ML VIAL SQ SCH ×3 (11:06→20:15)
[2020-03-20 11:47] VITALS: BP 120/75
--- NOTE | 2020-03-20 12:53 | NUR ---
pt's piv in the left upper arm infiltrated. RN looked for venous access but could not find anything. data warehouse developer attempted IV stick and was unsuccessful. called ER to see if there was a RN who could use the ultrasound to get IV access, ER nurse was with a patient and could not come at this time. paged Dr. Flores to inform and ask for central line orders. waiting for call back
[2020-03-20 13:55] LABS: CREATINE KINASE MB 9.1 ng/mL (0-5.0)
[2020-03-20] MEDS ORDERED: HYDROCODONE/APAP 7.5MG-325MG 1 EA TAB PO PRN (15:15)
--- NOTE | 2020-03-20 15:25 | NUR ---
24 hour urine started
[2020-03-20 16:14] VITALS: BP 122/64
--- NOTE | 2020-03-20 18:30 | Diagnostic Imaging Report ---
EXAM: Renal Ultrasound INDICATION: Acute renal failure COMPARISON: CT abdomen and pelvis 03/15/2020 TECHNIQUE: Transverse and longitudinal images of the kidneys and bladder were obtained. FINDINGS: Right Kidney: Size: 12.3 cm, right renal cortex 1.7 cm. Appearance: Normal echogenicity. Collecting system: No hydronephrosis Stones: None Cyst/Mass: None Left Kidney: Size: 10.3 cm, left renal cortex 1.3 cm. Appearance: Normal echogenicity. Collecting system: No hydronephrosis Stones: None Cyst/Mass: None Bladder: Unable to evaluate bladder, as it is decompressed. IMPRESSION: Normal bilateral renal size and echogenicity. No hydronephrosis or obstruction. Signed by: Dr. Dionte Morgan M.D. on 03/20/2020 6:27 PM
[2020-03-20 20:00] VITALS: BP 119/74
[2020-03-20] MEDS: MORPHINE SULFATE INJ 4 MG/ML INJ 1ML IV PRN (20:05)
[2020-03-20 20:33] LABS: CREATINE KINASE MB 7.9 ng/mL (0-5.0)
--- NOTE | 2020-03-20 20:58 | Consultation ---
DATE OF CONSULTATION: Initial Nephrology Consultation Report REASON FOR CONSULTATION: Acute kidney injury. HISTORY OF PRESENT ILLNESS: Ms. Amina Dong is a 49-year-old female, who is morbidly obese and she presented to the hospital because of some back pain. I am being asked to see her because of elevated BUN and creatinine of 42 and 3.1 respectively. The patient was here in the emergency room a few days ago on the of last month and her serum creatinine was 1.77 at that time. The serum only old value that we have is from August 2018 at that time, her serum creatinine was normal was about 0.7. The patient states that she had developed a urinary tract infection a few weeks ago and she took Macrobid, but however, she felt that urinary tract infection was not clear and she came back to the emergency room a few days ago and then she was started on a course of ciprofloxacin. She says she has almost finished a course of ciprofloxacin, but she got about 2 days worth left. The patient says that in the past three or four days she has been using Aleve because of some back pain that she has been having, but prior to that she says she has not really been taking much in the way of NSAIDs. The patient had a CT done here in the emergency room and it shows that she had some retroperitoneal lymphadenopathy. PAST MEDICAL HISTORY: 1. The patient has a history of diabetes for several years. 2. Hypertension. 3. Hypothyroidism. PAST SURGICAL HISTORY: Cholecystectomy. SOCIAL HISTORY: No smoking. No ETOH or IV drug abuse. REVIEW OF SYSTEMS: As per HPI. PHYSICAL EXAMINATION: VITAL SIGNS: Blood pressure 129/75, pulse 78, respirations 16. GENERAL: The patient is morbidly obese. HEENT: No increased JVD. CARDIOVASCULAR: Regular rate and rhythm. LUNGS: Decreased breath sounds at bases bilaterally. ABDOMEN: Positive bowel sounds. EXTREMITIES: The patient has trace edema of the legs. LABORATORY RESULTS: White count 11.4, hemoglobin and hematocrit 8.7 and 32.2 respectively, platelet count 358. Urinalysis shows 2+ protein, 21-50 red cells, 11-20 white cells, few bacteria. Sodium 128, potassium 4.3, chloride 97, bicarbonate 17, BUN and creatinine 42 and 3.1 respectively. Albumin 3.4. IMPRESSION AND PLAN: 1. Acute kidney injury. 2. Questionable chronic kidney disease. The patient is presenting with acute kidney injury. The only values that we have are from 03/15 of this year. The creatinine was 1.77 and then in August of last year it was normal. The patient did start taking some NSAIDs a few days ago, but I do not know if this would be enough to explain this degree of renal insufficiency, although it could. The patient has been on two different antibiotics. Acute interstitial nephritis is a possibility for this as well and it could be that NSAIDs combined with the antibiotics may have caused the renal failure. Rhabdomyolysis should also be ruled out. Her serum bicarbonate is 17, it is somewhat low. We will hydrate the patient. We will give her normal saline at 80 mL an hour. I will check a venous blood gas to confirm that this is metabolic acidosis and not respiratory alkalosis with metabolic compensation. I will check a venous blood gas to confirm it is metabolic acidosis and not respiratory alkalosis with metabolic compensation. We will check a renal ultrasound to see the echogenicity of the kidney disease to see if there is any increased echogenicity, but may be consistent with some chronic changes. I will check Kendall stain for eosinophil to see if it is suggestive of acute interstitial nephritis. Urine culture has been sent. I will order an LOLY, anti-double stranded DNA antibody, C3, C4, order serum protein electrophoresis, urine protein electrophoresis to rule out multiple myeloma, simply because of her age and further workup will be based on whether she responds to initial trial of IV fluids. I will check a CK also. Thank you, Dr. Flores, for allowing me to participate in the care of this patient with you. Ather MD CINTHIA Carrillo/TRI /[id number]
[2020-03-21] VITALS (7 sets, daily range): BP systolic 109–128; BP diastolic 47–65
[2020-03-21 01:27] LABS: CREATINE KINASE MB 7.3 ng/mL (0-5.0)
[2020-03-21] MEDS: MORPHINE SULFATE INJ 4 MG/ML INJ 1ML IV PRN ×4 (02:21→20:04)
[2020-03-21] MEDS ORDERED: LEVOTHYROXINE SODIUM 75 MCG TAB PO SCH (06:00)
[2020-03-21] MEDS: SODIUM CHLORIDE 0.9% 1000ML 1,000 ML IV SCH ×2 (07:02→14:10)
[2020-03-21 07:09] LABS: BASOPHILS # (AUTO) 0.1 (0.0-0.1); BASOPHILS % 0.8 % (0.0-1.0); EOSINOPHILS # (AUTO) 0.4 (0.0-0.4); EOSINOPHILS % 3.1 % (0.0-6.0); HEMATOCRIT 27.3 % (34.2-44.1); HEMOGLOBIN 7.8 g/dL (12.0-16.0); LYMPHOCYTES # (AUTO) 1.1 (1.0-3.2); LYMPHOCYTES % 9.3 % (18.0-39.1); MEAN CORPUSCULAR HEMOGLOBIN 20.8 pg (28-32); MEAN CORPUSCULAR HGB CONC 28.6 g/dL (31-35); MEAN CORPUSCULAR VOLUME 72.8 fL (81-99); MONOCYTES # (AUTO) 1.6 (0.2-0.8); MONOCYTES % 14.1 % (4.4-11.3); NEUTROPHILS # (AUTO) 8.3 (2.1-6.9); NEUTROPHILS % 71.4 % (38.7-80.0); PLATELET COUNT 416 x10e3/uL (140-360); RED BLOOD COUNT 3.75 x10e6/uL (3.6-5.1); RED CELL DISTRIBUTION WIDTH 18.6 % (11.7-14.4)
[2020-03-21] MEDS: LEVOTHYROXINE SODIUM 100 MCG TAB PO SCH (07:22)
[2020-03-21 07:27] LABS: MAGNESIUM 1.7 MG/DL (1.3-2.1); PHOSPHORUS 5.3 MG/DL (2.3-4.7)
[2020-03-21 07:29] LABS: ALBUMIN 3.2 g/dL (3.5-5.0); ALBUMIN/GLOBULIN RATIO 1.1 (0.8-2.0); ANION GAP 13.5 mmol/L (8-16); CREATININE, SERUM 3.04 mg/dL (0.57-1.11); POTASSIUM 4.5 mmol/L (3.5-5.1)
[2020-03-21] MEDS: INSULIN LISPRO 100 UNIT/1 ML 3ML VIAL SQ SCH ×4 (07:30→20:25)
[2020-03-21] MEDS: CEFTRIAXONE SOD 1 GM/NS 50 ML 50 ML IV SCH (08:17)
[2020-03-21] MEDS ORDERED: LEVOTHYROXINE SODIUM 175 MG PO SCH (09:00)
[2020-03-21] MEDS ORDERED: LISINOPRIL 10 MG TAB PO SCH (09:00)
--- NOTE | 2020-03-21 09:00 | NUR ---
PAGED DR. LYNN REGARDING PT SODIUM LEVEL 126.
[2020-03-21] MEDS ORDERED: FUROSEMIDE INJ 10 MG/ML 2 ML VIAL IV ONE (09:45)
[2020-03-21] MEDS ORDERED: BISACODYL 5 MG TAB EC PO ONE (13:00)
--- NOTE | 2020-03-21 13:00 | NUR ---
LAB ORDERS C-ANCA, P-ANCA, ANTI-GBM AB NEEDED FOR PT PER DR. LYNN. INFOMED THE SAME TO LAB MS. SHAH. WRITTEN ORDER GIVEN.
--- NOTE | 2020-03-21 15:08 | Progress Note ---
DATE: 03/21/2020 Renal Progress Note SUBJECTIVE: Events over the 24 hours have been noted. The patient feels okay. She is doing well. No complaints. PHYSICAL EXAMINATION: VITAL SIGNS: Blood pressure 123/54, pulse 84, afebrile, respirations 18. GENERAL: Intake and output, the outputs are not being measured at all. The patient is obese. HEENT: No increased JVD. CARDIOVASCULAR: Regular rate and rhythm. LUNGS: Clear to auscultation bilaterally. ABDOMEN: Decreased bowel sounds. EXTREMITIES: Trace bilateral lower extremity edema. LABORATORY DATA: Sodium 126, potassium 4.5, chloride 97, bicarbonate 20, BUN and creatinine 45 and 3.0 respectively calcium 8, creatine kinase 107, albumin 3.2. IMPRESSION: 1. Acute kidney injury. 2. Hyponatremia. PLAN: At the present time, the patient has been getting IV fluid normal saline at 80 mL an hour, however, the renal function has not improved significantly. I will continue the IV fluids. Serologies ordered yesterday are still pending. Today for completeness sake, I will order an anti-GBM antibody and also c-ANCA and p-ANCA. Her 24-hour urine collection is in progress. I will also continue the IV fluids. I gave her one dose of Lasix 20 mg today for the hypernatremia to promote hypotonic diuresis. I explained to the patient that if by Tuesday her creatinine has not returned to what it was before this admission, which was about 1.7 or better then we will probably have to do a kidney biopsy. Of note, she has been on some antibiotics and acute interstitial nephritis is a possibility. I will continue to follow. Ather MD CINTHIA Carrillo/TRI /[id number]
--- NOTE | 2020-03-21 15:40 | NUR ---
24 HOUR URINE GIVEN TO THE LAB
[2020-03-21 16:24] LABS: CREATININE,URINE RANDOM 118.27 mg/dL (47-110); TOTAL PROTEIN, URINE 119.2 mg/dL (1-14)
[2020-03-21 16:29] LABS: TOTAL VOLUME, URINE 750 ml/24hr (800-2000)
--- NOTE | 2020-03-21 16:43 | Progress Note ---
DATE: 03/21/2020 ADDENDUM The nurse has informed me that the patient did not receive IV fluids overnight because of the IV access, but now IV access has been obtained so recently the IV fluids have started so hopefully over the next 24 to 48 hours, we will start to see some improvement in the kidney function. Ather MD CINTHIA Carrillo/TRI /[id number]
[2020-03-21 16:49] LABS: EOSINOPHIL SMEAR,URINE NONE SEEN (NONE SEEN)
--- NOTE | 2020-03-21 19:15 | NUR ---
BEDSIDE SHIFT REPORT GIVEN TO THE LUSTERER RN. PT C/O REDNESS ON RIGHT AND LEFT HAND . PAGED DR. MEDEIROS ANSWERING SERVICE TO LEFT MESSAGE REGARDING THE SAME BUT UNABLE TO LEAVE A MESSAGE. LUSTERER RN AWARE.
--- NOTE | 2020-03-21 19:32 | NUR ---
CALLED MD Jade MEDEIROS. LEFT MESSAGE. AWAITING CALL BACK.
--- NOTE | 2020-03-21 19:42 | NUR ---
SPOKE TO MD CHING. REPORTED REDNESS TO PATIENT'S HANDS. NEW ORDERS RECEIVED.
[2020-03-21] MEDS ORDERED: DIPHENHYDRAMINE HCL INJ 50 MG/ML VIAL IV PRN (19:45)
[2020-03-21] MEDS ORDERED: CEFTRIAXONE SOD 1 GM/NS 50 ML 50 ML IV SCH (20:00)
[2020-03-21] MEDS ORDERED: DIPHENHYDRAMINE HCL INJ 50 MG/ML VIAL IV ONE (20:15)
[2020-03-22] VITALS (8 sets, daily range): BP systolic 102–131; BP diastolic 48–64
[2020-03-22] MEDS: MORPHINE SULFATE INJ 4 MG/ML INJ 1ML IV PRN ×5 (00:15→21:52)
[2020-03-22] MEDS: SODIUM CHLORIDE 0.9% 1000ML 1,000 ML IV SCH ×3 (00:23→23:49)
--- NOTE | 2020-03-22 04:25 | NUR ---
CENTRAL LINE CARE PROVIDED. DAILY CHG BATH. NEW PORTS. SALINE FLUSHES. ALCOHOL CAPS APPLIED. TOLERATED WELL.
[2020-03-22 04:52] LABS: BASOPHILS # (AUTO) 0.1 (0.0-0.1); BASOPHILS % 0.9 % (0.0-1.0); EOSINOPHILS # (AUTO) 0.3 (0.0-0.4); EOSINOPHILS % 2.9 % (0.0-6.0); HEMATOCRIT 26.7 % (34.2-44.1); HEMOGLOBIN 7.6 g/dL (12.0-16.0); LYMPHOCYTES # (AUTO) 1.2 (1.0-3.2); LYMPHOCYTES % 10.1 % (18.0-39.1); MEAN CORPUSCULAR HEMOGLOBIN 21.1 pg (28-32); MEAN CORPUSCULAR HGB CONC 28.5 g/dL (31-35); MEAN CORPUSCULAR VOLUME 74.2 fL (81-99); MONOCYTES # (AUTO) 1.9 (0.2-0.8); MONOCYTES % 15.9 % (4.4-11.3); NEUTROPHILS % 68.8 % (38.7-80.0); PLATELET COUNT 410 x10e3/uL (140-360); RED CELL DISTRIBUTION WIDTH 18.4 % (11.7-14.4)
[2020-03-22] MEDS: LEVOTHYROXINE SODIUM 75 MCG TAB PO SCH (05:01)
[2020-03-22] MEDS: LEVOTHYROXINE SODIUM 100 MCG TAB PO SCH (05:01)
[2020-03-22 05:12] LABS: ALBUMIN 2.5 g/dL (3.5-5.0); ALBUMIN/GLOBULIN RATIO 0.7 (0.8-2.0); ANION GAP 15.7 mmol/L (8-16); CALCIUM 8.1 mg/dL (8.4-10.2); CREATININE, SERUM 3.11 mg/dL (0.57-1.11); POTASSIUM 4.7 mmol/L (3.5-5.1)
--- NOTE | 2020-03-22 07:20 | NUR ---
REPORT GIVEN TO DAYSHIFT NURSE. ALERT AND ORIENTED. RESTING IN BED. NO SIGNS IV INFILTRATION. BED LOCKED AND IN LOW POSITION. SR UPX2. CALL LIGHT WITHIN REACH.
[2020-03-22] MEDS: INSULIN LISPRO 100 UNIT/1 ML 3ML VIAL SQ SCH ×4 (07:30→21:00)
[2020-03-22] MEDS: CEFTRIAXONE SOD 1 GM/NS 50 ML 50 ML IV SCH ×2 (12:03→23:48)
--- NOTE | 2020-03-22 12:06 | Progress Note ---
DATE: 03/22/2020 CHIEF COMPLAINT/HISTORY OF PRESENT ILLNESS: This is a 49-year-old white woman, whose primary treating diagnoses is urinary tract infection and tjeir-vr-oqynllf renal insufficiency. The patient states she was diagnosed with urinary tract infection two weeks ago at her primary care physician's office, namely Dr. Mcgrath. The patient states initially she was started on Macrobid, which did not help her urinary tract infection symptoms. The patient thus initially came to the [facility] and was started on oral ciprofloxacin. The patient returned again because her symptoms were not improving. Last night ceftriaxone was stopped because she experienced redness in her bilateral thumbs and thenar eminence area. The patient states that she would like to restart antibiotics again because of her urinary tract infection. Today's blood work reveals sodium 127. Serum bicarbonate is 19, anion gap is 15, BUN and creatinine is 49 and 3.11 respectively. Urine culture does not reveal any growth, but as previous stated she was on oral Macrobid and ciprofloxacin prior to admission. REVIEW OF SYSTEMS: As per HPI. PHYSICAL EXAMINATION: GENERAL: She is awake, alert, fully oriented, in no distress, very pleasant and cooperative on exam. VITAL SIGNS: Blood pressure 110/48, pulse 86, respiratory rate is 16, temperature 97.9, and oxygen saturation is 100% on room air. Height 5 feet 9 inches, weight is 330 pounds, BMI 48. INTEGUMENT: Skin is warm and dry. No pallor, jaundice, or diaphoresis. HEENT: Anterior sclerae, moist mucous membranes. NECK: Supple. CARDIOVASCULAR: Regular rate and rhythm. LUNGS: No rales. No rhonchi. No wheezes. ABDOMEN: Extremely obese. She has a large pendulous abdominal pannus. Her abdominal exam is essentially benign. EXTREMITIES: No edema or deformity. NEUROLOGIC: Intact. DIAGNOSES: 1. Srdev-qs-qiwwuiw renal insufficiency. 2. Urinary tract infection. 3. Extreme obesity, BMI 48. PLAN: 1. We will hold NSAIDs namely naproxen since she was taking this medication prior to admission and this could be contributing to her viedm-qr-owmkwee renal insufficiency. 2. Hold lisinopril because of the patient's ofjyn-wq-niikjim renal insufficiency. 3. Blood glucose monitoring controlled. 4. Intravenous antibiotics. 5. Monitor for any antibiotic-associated allergic dermatitis. 6. Appreciate Nephrology's input on this patient. 7. Follow renal function. 8. Continue intravenous fluids. I spent 30 minutes in the care of the patient. MD TAVO Mercedes/TRI /[id number] LORETO
--- NOTE | 2020-03-22 16:21 | Diagnostic Imaging Report ---
EXAMINATION: CHEST SINGLE (PORTABLE) INDICATION: ^acute on chronic renal failure ^[id number] ^1546 ^Y COMPARISON: None FINDINGS: AP view TUBES and LINES: Right subclavian central venous catheter with tip overlying the cavoatrial junction. LUNGS: Lungs are well inflated. Lungs are clear. There is no evidence of pneumonia or pulmonary edema. PLEURA: No pleural effusion or pneumothorax. HEART AND MEDIASTINUM: Mildly prominent cardiac silhouette may be due to portable technique. BONES AND SOFT TISSUES: No acute osseous lesion. Soft tissues are unremarkable. UPPER ABDOMEN: No free air under the diaphragm. IMPRESSION: No acute thoracic abnormality. Right subclavian central venous catheter with tip overlying the cavoatrial junction. Signed by: Dr. Katarina Rey M.D. on 03/22/2020 4:17 PM
[2020-03-23] VITALS (7 sets, daily range): BP systolic 105–139; BP diastolic 33–70
[2020-03-23] MEDS: MORPHINE SULFATE INJ 4 MG/ML INJ 1ML IV PRN ×5 (02:15→22:48)
[2020-03-23] MEDS: LEVOTHYROXINE SODIUM 75 MCG TAB PO SCH (05:37)
[2020-03-23] MEDS: LEVOTHYROXINE SODIUM 100 MCG TAB PO SCH (05:37)
--- NOTE | 2020-03-23 06:31 | NUR ---
bp rechecked 138/87 mmhg
[2020-03-23 06:53] LABS: ALBUMIN 2.5 g/dL (3.5-5.0); ALBUMIN/GLOBULIN RATIO 0.7 (0.8-2.0); CALCIUM 8.4 mg/dL (8.4-10.2); CREATININE, SERUM 2.91 mg/dL (0.57-1.11)
--- NOTE | 2020-03-23 07:00 | NUR ---
RECEIVED PATIENT RESTING IN BED NO S/S OF DISTRESS. BED LOW, WHEELS LOCKED, SIDE RAILS X2. CALL LIGHT IN REACH WILL CONTINUE TO MONITOR PATIENT.
[2020-03-23] MEDS: INSULIN LISPRO 100 UNIT/1 ML 3ML VIAL SQ SCH ×4 (07:30→20:38)
[2020-03-23 07:57] LABS: FERRITIN 36.01 ng/mL (4.63-204.00)
[2020-03-23] MEDS: SODIUM CHLORIDE 0.9% 1000ML 1,000 ML IV SCH ×2 (08:26→18:01)
[2020-03-23] MEDS: CEFTRIAXONE SOD 1 GM/NS 50 ML 50 ML IV SCH ×2 (12:15→23:29)
--- NOTE | 2020-03-23 12:15 | Progress Note ---
DATE: 03/23/2020 CHIEF COMPLAINT/HISTORY OF PRESENT ILLNESS: This is a 49-year-old white woman, whose primary diagnosis is acute renal insufficiency, hyponatremia, and iron deficiency anemia. The patient is also being treated for urinary tract infection. Moreover, she has extreme obesity. Urine culture performed on admission has not revealed any growth, but she was taking Macrobid, followed by ciprofloxacin prior to admission. The patient's only complaint is lower back pain near her sacral area. The patient denies any fever or chills. The patient's BUN and creatinine today is 15-0.91 respectively. Serum iron today is 13 with a ferritin level of 36. The patient's serum sodium 128. Potassium 5.0. The patient's white blood cell count today was 11,600 with 68% segments. Hemoglobin today 7.6 g/dL. REVIEW OF SYSTEMS: As per HPI. PHYSICAL EXAMINATION: GENERAL: She is awake. She is alert. She is fully oriented. She is very pleasant and cooperative on exam. VITAL SIGNS: Blood pressure is 128/58, pulse 90, respiratory rate 16, temperature 97.8, and oxygen saturation 99% on room air. Height 5 feet 9 inches, weighs 330 pounds, BMI 48. INTEGUMENT: Skin is warm and dry. No pallor, jaundice, diaphoresis. HEENT: Anicteric sclerae. Moist mucous membranes. NECK: Supple. CARDIOVASCULAR: Distant heart sounds. Regular rate and rhythm. LUNGS: No rales, no rhonchi or wheezes. ABDOMEN: Extremely obese. She has a large pendulous abdominal pannus. Her abdominal exam is essentially benign. EXTREMITIES: No edema or deformity. SPINE/TORSO: Minimal tenderness when palpating the bilateral sacral area. NEUROLOGIC: Intact. Normal gait. DIAGNOSES: 1. Acute on chronic renal insufficiency. 2. Urinary tract infection. 3. Hyponatremia. 4. Iron deficiency anemia. 5. Lumbago. 6. Extreme obesity, BMI 41. PLAN: 1. Order lumbar spine x-ray to assess for any possible lytic lesions. 2. Appreciate Nephrology's input in regard to the patient's acute on chronic renal failure. 3. Increase intravenous fluids from 80 to 125 mL/hour. 4. Follow electrolytes and renal function. 5. We will start intravenous iron in the form of iron gluconate 125 mg daily for patient's iron deficiency anemia. 6. Continue intravenous antibiotics for patient's urinary tract infection. 7. Free water restriction, one liter daily. Spent 35 minutes in care of the patient. MD TVAO Mercedes/TRI /[id number] LORETO
[2020-03-23] MEDS: SODIUM FERRIC GLUCONATE COMPLX 125 MG in SODIUM CHLORIDE 0.9% 100 ML 100 ML IV SCH (13:24)
--- NOTE | 2020-03-23 14:11 | Diagnostic Imaging Report ---
EXAM: Lumbar spine radiographs-3 views INDICATION: Lumbago. COMPARISON: CT abdomen/pelvis 03-15-2020. FINDINGS: Body habitus somewhat limits evaluation. BONES: The alignment is within normal limits. No acute displaced fractures. Vertebral body heights are preserved. DISCS/JOINTS: Mild multilevel degenerative disc changes. Moderate facet degenerative changes, most pronounced at L3-L4, L4-L5, and L5-S1. SOFT TISSUES: Unremarkable IMPRESSION: No acute radiographic abnormality. Mild degenerative disc and lower lumbar spine moderate facet degenerative changes. Signed by: Dr. Jaymie Sharif MD on 03/23/2020 2:08 PM
[2020-03-24] VITALS (8 sets, daily range): BP systolic 95–125; BP diastolic 52–67
[2020-03-24] MEDS: MORPHINE SULFATE INJ 4 MG/ML INJ 1ML IV PRN ×5 (02:48→21:52)
[2020-03-24] MEDS: LEVOTHYROXINE SODIUM 100 MCG TAB PO SCH (06:00)
[2020-03-24] MEDS: LEVOTHYROXINE SODIUM 75 MCG TAB PO SCH (06:00)
[2020-03-24] MEDS: SODIUM CHLORIDE 0.9% 1000ML 1,000 ML IV SCH ×2 (06:01→14:00)
[2020-03-24 06:32] LABS: BASOPHILS # (AUTO) 0.1 (0.0-0.1); BASOPHILS % 0.6 % (0.0-1.0); EOSINOPHILS # (AUTO) 0.1 (0.0-0.4); EOSINOPHILS % 0.8 % (0.0-6.0); HEMATOCRIT 25.9 % (34.2-44.1); HEMOGLOBIN 7.5 g/dL (12.0-16.0); LYMPHOCYTES % 6.8 % (18.0-39.1); MEAN CORPUSCULAR HEMOGLOBIN 21.6 pg (28-32); MEAN CORPUSCULAR VOLUME 74.4 fL (81-99); NEUTROPHILS # (AUTO) 10.5 (2.1-6.9); NEUTROPHILS % 74.7 % (38.7-80.0); PLATELET COUNT 483 x10e3/uL (140-360); RED BLOOD COUNT 3.48 x10e6/uL (3.6-5.1); RED CELL DISTRIBUTION WIDTH 18.6 % (11.7-14.4)
[2020-03-24 06:58] LABS: ALBUMIN 2.5 g/dL (3.5-5.0); ALBUMIN/GLOBULIN RATIO 0.7 (0.8-2.0); ANION GAP 14.2 mmol/L (8-16); CALCIUM 8.4 mg/dL (8.4-10.2); CREATININE, SERUM 3.12 mg/dL (0.57-1.11); POTASSIUM 5.2 mmol/L (3.5-5.1)
[2020-03-24] MEDS: INSULIN LISPRO 100 UNIT/1 ML 3ML VIAL SQ SCH ×4 (07:30→21:00)
--- NOTE | 2020-03-24 10:57 | NUR ---
EDUCATED ABOUT IMM, OBTAINED SIGNATURE FILED IN CHART AND LEFT COPY FOR PT IN ROOM FOR OWN RECORDS.
[2020-03-24] MEDS: POLYETHYLENE GLYCOL 3350 17 GM PACK PO SCH (12:45)
[2020-03-24] MEDS: CEFTRIAXONE SOD 1 GM/NS 50 ML 50 ML IV SCH (12:45)
[2020-03-24] MEDS: SODIUM FERRIC GLUCONATE COMPLX 125 MG in SODIUM CHLORIDE 0.9% 100 ML 100 ML IV SCH (14:45)
[2020-03-24] MEDS: EPOETIN ALFA-EPBX 10,000 UNIT/ML VIAL SC SCH (16:53)
[2020-03-24] MEDS: DOCUSATE SODIUM 100 MG CAP PO SCH (16:59)
--- NOTE | 2020-03-24 17:13 | Progress Note ---
DATE: 03/24/2020 Renal Progress Note SUBJECTIVE: Events over the past 24 hours have been noted. No chest pain or shortness of breath. She is eating and drinking adequately. PHYSICAL EXAMINATION: VITAL SIGNS: Blood pressure 95/53, pulse 97, and respiration 22. GENERAL: The patient is morbidly obese. HEENT: No increased JVD. CARDIOVASCULAR: Regular rate and rhythm. LUNGS: Clear to auscultation. ABDOMEN: Positive bowel sounds. EXTREMITIES: Trace edema. LABORATORY RESULTS: LOLY is negative. C3-C4 within normal limits. urine protein to creatinine ratio, which is . Sodium 127, potassium 5.2, chloride 100, bicarb 18. BUN and creatinine are 51 and 3.1 respectively. Albumin 2.5. IMPRESSION: 1. Acute kidney injury. 2. Borderline hyponatremia. 3. Mild hyperkalemia. PLAN: The patient has been getting IV fluids throughout the weekend. Her renal function still is about the same. I think most of her serologies are pending, but it looks like she has a minimal proteinuria. It is definitely in the sub-nephrotic range. As I mentioned, she will start out with a creatinine of 1.7 couple of weeks ago. I will go ahead and schedule her for a CT-guided kidney biopsy to find out why her kidney function is not improving. She will be posted for CT-guided kidney biopsy. MD CINTHIA Callejas/TRI /[id number]
[2020-03-24 19:09] LABS: ALPHA 2 GLOBULIN URINE PEP 9.6 % (.)
[2020-03-25] VITALS (10 sets, daily range): BP systolic 106–121; BP diastolic 44–64
[2020-03-25] MEDS: CEFTRIAXONE SOD 1 GM/NS 50 ML 50 ML IV SCH ×2 (00:04→12:09)
[2020-03-25] MEDS: MORPHINE SULFATE INJ 4 MG/ML INJ 1ML IV PRN ×3 (01:57→10:01)
[2020-03-25] MEDS: LEVOTHYROXINE SODIUM 100 MCG TAB PO SCH (06:00)
[2020-03-25] MEDS: LEVOTHYROXINE SODIUM 75 MCG TAB PO SCH (06:00)
[2020-03-25 06:32] LABS: INR 1.17; PROTHROMBIN TIME 15.5 seconds (11.9-14.5)
[2020-03-25 06:33] LABS: PARTIAL THROMBOPLASTIN TIME 48.5 seconds (23.8-35.5)
[2020-03-25] MEDS: INSULIN LISPRO 100 UNIT/1 ML 3ML VIAL SQ SCH ×4 (07:30→20:58)
[2020-03-25 08:21] LABS: BASOPHILS # (AUTO) 0.1 (0.0-0.1); BASOPHILS % 0.6 % (0.0-1.0); EOSINOPHILS # (AUTO) 0.1 (0.0-0.4); EOSINOPHILS % 0.6 % (0.0-6.0); HEMATOCRIT 26.8 % (34.2-44.1); HEMOGLOBIN 7.6 g/dL (12.0-16.0); LYMPHOCYTES # (AUTO) 0.9 (1.0-3.2); LYMPHOCYTES % 5.1 % (18.0-39.1); MEAN CORPUSCULAR HEMOGLOBIN 21.1 pg (28-32); MEAN CORPUSCULAR HGB CONC 28.4 g/dL (31-35); MEAN CORPUSCULAR VOLUME 74.2 fL (81-99); MONOCYTES # (AUTO) 1.8 (0.2-0.8); MONOCYTES % 10.9 % (4.4-11.3); NEUTROPHILS # (AUTO) 13.3 (2.1-6.9); NEUTROPHILS % 79.5 % (38.7-80.0); PLATELET COUNT 462 x10e3/uL (140-360); RED BLOOD COUNT 3.61 x10e6/uL (3.6-5.1); RED CELL DISTRIBUTION WIDTH 18.3 % (11.7-14.4)
[2020-03-25 08:45] LABS: ANION GAP 16.5 mmol/L (8-16); CALCIUM 8.7 mg/dL (8.4-10.2); CREATININE, SERUM 3.34 mg/dL (0.57-1.11); POTASSIUM 5.5 mmol/L (3.5-5.1)
[2020-03-25] MEDS: DOCUSATE SODIUM 100 MG CAP PO SCH ×2 (09:00→18:02)
[2020-03-25] MEDS: POLYETHYLENE GLYCOL 3350 17 GM PACK PO SCH (09:00)
--- NOTE | 2020-03-25 10:20 | NUR ---
Spoke with Dr. Flores to report pt increased pain to bilateral hips. Received orders to get bilateral hip xrays, dc morphine, and start pt on [place] 5/mg q6hrs.
[2020-03-25] MEDS: HYDROCODONE/APAP 5MG-325MG TAB PO PRN ×2 (12:52→18:30)
[2020-03-25] MEDS ORDERED: MIDAZOLAM HCL 2 MG/2 ML VIAL ONE (12:59)
[2020-03-25] MEDS ORDERED: FENTANYL CITRATE/PF 100MCG/2 ML INJ ONE (12:59)
[2020-03-25] MEDS: SODIUM FERRIC GLUCONATE COMPLX 125 MG in SODIUM CHLORIDE 0.9% 100 ML 100 ML IV SCH (14:00)
--- NOTE | 2020-03-25 14:12 | Diagnostic Imaging Report ---
ADDENDUM #1 ADDENDUM: The report had a left/right error. A RIGHT nonfocal renal biopsy was performed, not a left renal biopsy. Signed by: Bri Verduzco MD on 03/25/2020 2:24 PM ORIGINAL REPORT PROCEDURE: Ultrasound-guided nonfocal renal biopsy Procedural Personnel Attending physician(s): Bri Verduzco MD Fellow physician(s): None Resident physician(s): None Advanced practice provider(s): None Pre-procedure diagnosis: Acute kidney injury Post-procedure diagnosis: Same Indication: Organ dysfunction Previous biopsy of same target (QCDR): No Additional clinical history: None Complications: No immediate complications. IMPRESSION: Ultrasound-guided biopsy of left renal cortex. Plan: Specimen(s) sent for evaluation. PROCEDURE SUMMARY: - Percutaneous US-guided coaxial core needle nonfocal renal biopsy - Additional procedure(s): None PROCEDURE DETAILS: Pre-procedure Reference imaging for biopsy target: CT abdomen/pelvis 03/15/2020 Consent: Informed consent for the procedure including risks, benefits and alternatives was obtained and time-out was performed prior to the procedure. Preparation: The site was prepared and draped using maximal sterile barrier technique including cutaneous antisepsis. Anesthesia/sedation Level of anesthesia/sedation: Moderate sedation (conscious sedation) 1mg Versed, 100mcg fentanyl Anesthesia/sedation administered by: Independent trained observer under attending supervision with continuous monitoring of the patient?s level of consciousness and physiologic status Total intra-service sedation time (minutes): 30 Imaging prior to biopsy The patient was positioned right lateral decubitus oblique. Initial ultrasound was performed. Biopsy target: - Maximal diameter (cm): NA - Location: Left renal cortex Other findings: None Biopsy Local anesthesia was administered. Under US guidance, the biopsy needle was advanced to the target and biopsy was performed. Coaxial needle: 17 gauge Core needle biopsy device: [employer] Core needle size: 18 gauge Number of core specimens: 3 Needle removal The biopsy needle was removed and a sterile dressing was applied. Tract embolization: Gelfoam slurry Imaging following biopsy Immediate post-biopsy ultrasound was performed. Post-biopsy imaging findings: No hematoma Additional Details Additional description of procedure: None Equipment details: None Specimens removed: Biopsy samples as detailed above Estimated blood loss (mL): Less than 10 Standardized report: [id number] Attestation Signer name: Bri Verduzco MD I attest that I was present for the entire procedure. I reviewed the stored images and agree with the report as written. Signed by: Bri Verduzco MD on 03/25/2020 2:09 PM
[2020-03-25] MEDS ORDERED: SOD POLYSTYRENE SULFONATE SUSP 15 GM/60 ML BTL PO ONE ×2 (15:00→21:00)
--- NOTE | 2020-03-25 15:15 | NUR ---
Pt received from radiology department after renal biopsy was done. Pt is aox4 and able to verbalize needs. Dressing to right flank is dry and intact. 0 s/s of acute distress noted.
[2020-03-25] MEDS: SODIUM CHLORIDE 0.9% 1000ML 1,000 ML IV SCH (16:29)
--- NOTE | 2020-03-25 16:54 | Progress Note ---
DATE: Renal Progress Note SUBJECTIVE: The patient just underwent a kidney biopsy. PHYSICAL EXAMINATION: VITAL SIGNS: Blood pressure 108/44, pulse 96, and respiration 18. GENERAL: The patient is in no acute distress. The patient is morbidly obese. HEENT: No increased JVD. CARDIOVASCULAR: Regular rate and rhythm. LUNGS: Clear to auscultation. ABDOMEN: Positive bowel sounds. EXTREMITIES: Trace edema. LABORATORY RESULTS: Hemoglobin and hematocrit 7.6 and 26.8 respectively, white count 16.7, and platelets 462. Sodium 128, potassium 5.5, chloride 101, bicarbonate 16, BUN and creatinine 53 and 3.34 respectively. IMPRESSION: 1. Acute kidney injury. 2. Borderline hyponatremia. 3. Hyperkalemia. 4. Decreased serum bicarbonate consistent with metabolic acidosis. PLAN: The patient just underwent a CT-guided kidney biopsy. The patient's renal function is worsening. Also, I note that the white count is also going up. I am going to restart the IV fluids normal saline at 75 mL an hour. I will also order Kayexalate now and also a dose to be repeated at 9 p.m. I will order sodium bicarbonate tablets. Ather MD CINTHIA Carrillo/TRI /[id number]
[2020-03-25] MEDS ORDERED: ONDANSETRON HCL 4 MG ORAL DISINTEGRATING TAB PO PRN (17:15)
[2020-03-25] MEDS: SODIUM BICARBONATE 650 MG TAB PO SCH (18:02)
[2020-03-25] MEDS: PREGABALIN 75 MG CAP PO SCH (19:23)
--- NOTE | 2020-03-25 21:33 | Diagnostic Imaging Report ---
Single view of the pelvis. 2 views of the right hip. 2 views of the left hip. HISTORY: Pain. COMPARISON: None available. FINDINGS: Bones/joints: No acute fracture or dislocation. There are moderate degenerative changes of the bilateral hips characterized by joint space narrowing, subchondral sclerosis and marginal osteophytes. The sacroiliac joints are symmetric. No pubic symphyseal widening.C Soft tissues: No focal soft tissue abnormality. IMPRESSION: No acute fracture or dislocation. 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 Signed by: Asha Israel MD on 03/25/2020 9:30 PM
[2020-03-26] VITALS (7 sets, daily range): BP systolic 93–130; BP diastolic 53–73
[2020-03-26] MEDS: HYDROCODONE/APAP 10MG-325MG TAB PO PRN ×4 (00:04→20:34)
[2020-03-26] MEDS: CEFTRIAXONE SOD 1 GM/NS 50 ML 50 ML IV SCH ×2 (00:51→12:03)
[2020-03-26] MEDS: LEVOTHYROXINE SODIUM 100 MCG TAB PO SCH (06:00)
[2020-03-26] MEDS: LEVOTHYROXINE SODIUM 75 MCG TAB PO SCH (06:00)
[2020-03-26 06:04] LABS: BASOPHILS # (AUTO) 0.1 (0.0-0.1); BASOPHILS % 0.3 % (0.0-1.0); EOSINOPHILS % 0.1 % (0.0-6.0); HEMATOCRIT 25.4 % (34.2-44.1); HEMOGLOBIN 7.4 g/dL (12.0-16.0); LYMPHOCYTES # (AUTO) 0.8 (1.0-3.2); LYMPHOCYTES % 4.3 % (18.0-39.1); MEAN CORPUSCULAR HGB CONC 29.1 g/dL (31-35); MEAN CORPUSCULAR VOLUME 75.6 fL (81-99); MONOCYTES # (AUTO) 1.8 (0.2-0.8); MONOCYTES % 9.9 % (4.4-11.3); NEUTROPHILS # (AUTO) 15.3 (2.1-6.9); NEUTROPHILS % 82.4 % (38.7-80.0); PLATELET COUNT 400 x10e3/uL (140-360); RED BLOOD COUNT 3.36 x10e6/uL (3.6-5.1); RED CELL DISTRIBUTION WIDTH 20.5 % (11.7-14.4)
[2020-03-26] MEDS: SODIUM CHLORIDE 0.9% 1000ML 1,000 ML IV SCH ×2 (06:08→17:40)
[2020-03-26 06:20] LABS: ANION GAP 21.5 mmol/L (8-16); CALCIUM 8.7 mg/dL (8.4-10.2); POTASSIUM 5.5 mmol/L (3.5-5.1)
--- NOTE | 2020-03-26 07:00 | NUR ---
RECEIVED BEDSIDE SHIFT REPORT FROM OFF GOING NIGHT NURSE. PATIENT IN STABLE CONDITION, NO S/S OF DISTRESS NOTED. IV FLUIDS INFUSING, SITE ASYMPTOMATIC AND PATIENT, TRANSPARENT DRESSING APPLIED C/D/I. BED IN LOWEST POSITION AND LOCKED , SIDE RAILS X 2, NONSKID SOCKS APPLIED. CALL LIGHT WITHIN REACH.
[2020-03-26] MEDS: INSULIN LISPRO 100 UNIT/1 ML 3ML VIAL SQ SCH ×4 (07:30→21:00)
[2020-03-26 07:31] LABS: BAND NEUTROPHILS % (MANUAL) 1 %; HYPOCHROMASIA SLIGHT; LYMPHOCYTES % (MANUAL) 3 % (19-48); MONOCYTES % (MANUAL) 7 % (3.4-9.0); MYELOCYTES % (MANUAL) 1 % (0-0); NEUTROPHILS % (MANUAL) 88 % (40-74)
[2020-03-26 07:32] LABS: PLATELET ESTIMATE MODERATELY INCREASED; POLYCHROMASIA FEW; RBC MORPHOLOGY COMMENT ABNORMAL
[2020-03-26 07:33] LABS: PLATELET MORPHOLOGY COMMENT FEW EDTA CLUMPING
[2020-03-26 07:34] LABS: LARGE PLATELETS FEW
--- NOTE | 2020-03-26 08:56 | Diagnostic Imaging Report ---
Central catheter insertion. History: Renal failure. Unable to obtain IV access. Modality: Fluoroscopy and sonography. Sedation: None. Apartment Community Assistant Manager: Kandi Kirkpatrick. Track Grinder Operator: None. Approach: Internal jugular vein - right. Estimated blood loss: < 5 cc. Specimen: None. Fluoroscopy Time: 0.4 min. Dose (Ka,r): 5.9 mGy. Technique: Informed written consent was obtained. Discussion of risks, benefits, and alternatives were made with the patient. The patient expressed understanding and agreed to proceed. All elements maximal sterile barrier technique was utilized for this procedure, including utilization of sterile scrub solution for skin prep, a large sterile sheet to cover the areas of the patient that were not prepped, and hand hygiene, mask, head covering, and sterile gown for performing radiologist and scrub technologist. The skin was anesthetized with 2% lidocaine. Ultrasound evaluation showed a patent and compressible right internal jugular vein, which was punctured under direct real-time ultrasound guidance with a micropuncture needle. An ultrasound image was saved to PACS. A microwire and sheath were placed. A 0.035 inch wire was placed through the sheath into the right atrium. The tract was dilated. The 14 cm 7 Urdu triple-lumen catheter was placed over the wire with its distal tip terminating in the superior right atrium. The ports were flushed and aspirated easily following placement. The catheter was sutured to the skin to secure its placement. Vital signs were monitored throughout the procedure by a nurse, and remained stable. The patient tolerated the procedure well and left the department in the same condition. Results: Spot radiograph of the chest demonstrates the new triple-lumen catheter to lie in the expected position with its tip overlying the right atrium. Impression: Successful, uncomplicated placement of a right internal jugular triple lumen catheter using sonographic and fluoroscopic guidance. Signed by: Jerome Kirkpatrick MD on 03/26/2020 8:52 AM
[2020-03-26] MEDS: PREGABALIN 75 MG CAP PO SCH ×2 (09:24→17:40)
[2020-03-26] MEDS: POLYETHYLENE GLYCOL 3350 17 GM PACK PO SCH (09:24)
[2020-03-26] MEDS: DOCUSATE SODIUM 100 MG CAP PO SCH ×2 (09:24→17:40)
[2020-03-26] MEDS: SODIUM BICARBONATE 650 MG TAB PO SCH ×2 (09:24→17:40)
[2020-03-26] MEDS ORDERED: PHENYTOIN SODIUM INJ 50 MG/ML 2 ML VIAL IV PRN (09:30)
[2020-03-26] MEDS ORDERED: HYDROMORPHONE HCL 2 MG TAB PO PRN (10:30)
[2020-03-26] MEDS: HYDROMORPHONE 2MG/ML 2 MG/ML ML IV PRN ×2 (11:00→18:30)
[2020-03-26] MEDS: SODIUM FERRIC GLUCONATE COMPLX 125 MG in SODIUM CHLORIDE 0.9% 100 ML 100 ML IV SCH (13:13)
[2020-03-26] MEDS: EPOETIN ALFA-EPBX 10,000 UNIT/ML VIAL SC SCH (16:00)
--- NOTE | 2020-03-26 16:24 | Progress Note ---
DATE: 03/26/2020 Renal Progress Note SUBJECTIVE: The patient still complains of hip pain. She is sleeping right now. Intake and output really not being recorded. PHYSICAL EXAMINATION: VITAL SIGNS: Blood pressure 130/73, pulse 102, and afebrile. GENERAL: The patient is morbidly obese. HEENT: No increased JVD. CARDIOVASCULAR: Regular rate and rhythm. LUNGS: Clear to auscultation. ABDOMEN: Positive bowel sounds. EXTREMITIES: Trace edema of the legs. LABORATORY RESULTS: White count 18.5, hemoglobin and hematocrit 7.4 and 25.4 respectively, and platelet count 400,000. Sodium 130, potassium 5.5, chloride 102, bicarbonate 12, BUN and creatinine 60 and 4. IMPRESSION: 1. Acute kidney injury. 2. Borderline hyponatremia. 3. Hyperkalemia. 4. Decreased serum bicarbonate consistent with metabolic acidosis. PLAN: The patient remains hyperkalemic even after Kayexalate and even despite IV fluids, her renal function has continued to worsen. A CT-guided biopsy was done yesterday, results are still pending. She has been started on sodium bicarbonate tablets. However, her serum bicarbonate is down to 12. I think a Eduardo catheter should be placed and we need to start dialysis. The patient also on a previous CT had some lymphadenopathy either reactive or metastatic, probably Oncology consultation would be in order. Dialysis will be initiated today. Ather MD CINTHIA Carrillo/TRI /[id number]
--- NOTE | 2020-03-26 16:29 | NUR ---
Nutrition Intervention Note RD Recommendation(s) for Physician: -Recommend renal/ADA diet -Provide Nepro nutrition supplement if PO intake is <50% of meals Plan of Care: RD following, monitoring for tolerance and adequacy, oral supplement recommendation Nutrition reason for involvement: length of stay RD Assessment (03/26/20) Chart reviewed. Labs and meds reviewed. Pt is a 49 year old female admitted with acute renal failure, back pain, hyponatremia, rectoperitoneal lymphadenopathy, and sciatica. Dialysis is being discussed. Pt reports a decreased appetite for 2 weeks and has only been eating a few bites of food. Pt also mentioned she usually weighs 330 lbs. No N/V or chewing/swallowing issues noted. Pt declined the need for diet education and was not interested in a nutrition supplement. Will continue to monitor. Principal Problems/Diagnoses: acute renal failure, back pain, hyponatremia, rectoperitoneal lymphadenopathy, and sciatica PMH: diabetes, hypertension, hypothyroid GI: soft/non-tender abdomen, no BM recorded Skin: intact Labs: (03/26) Na 130, K 5.5, BUN 60, Cr 4.0, Glu 109, Ca 8.7, (03/21) Phos 5.3 Meds: IV iron, antibiotic, dilaudid, colace, miralax, levothyroxine, insulin, zofran Ht: 69 in Wt: 330 lb BMI: 48.7 kg/m2 IBW:145 lb Malnutrition Evaluation (03/26/20) The patient does not meet criteria for a specified degree of malnutrition at this time. Will re-evaluate at follow-up as appropriate. Energy intake: <50% of estimated energy requirements for >5 days Weight loss: No weight loss indicated Fat loss: no loss identified per observation Muscle loss: no loss identified per observation Supporting Evidence: Fluid accumulation: trace edema Functional Status: not assessed Nutrition Prescription (Diet Order): 1800 ADA Estimated Nutritional Needs: 4658-9292 calories/day (22-25 kcal/kg IBW) 99-130 mg protein/day (1.5-2 g pro/kg IBW) Diet Adequacy: Not meeting calorie needs, Not meeting protein needs Tolerance: Tolerating PO Diet Education Needs Assessment: Diet education indicated, but patient declined. Nutrition Care Level: high Nutrition Diagnosis: Inadequate energy intake related to decreased ability to consume sufficient energy as evidenced by insufficient energy intake from diet compared to needs per pt report. Goal: Patient will meet 75-100% of estimated needs by follow up Progress: N/A Interventions: -mineral and carbohydrate - modified diet, Commercial beverage Monitoring/Evaluation: -Total energy intake, Total protein intake, Modified diet, Liquid supplement, Weight change Signed: Glo Goldsmith RD, LD
--- NOTE | 2020-03-26 19:12 | NUR ---
COMPLETED BEDSIDE SHIFT REPORT AND ROUNDING WITH ONCOMING NIGHT NURSE. PATIENT IN STABLE CONDITION, NO S/S OF DISTRESS NOTED. IV FLUIDS INFUSING, SITE ASYMPTOMATIC AND PATIENT, TRANSPARENT DRESSING APPLIED C/D/I. BED IN LOWEST POSITION AND LOCKED , SIDE RAILS X 2, NONSKID SOCKS APPLIED. CALL LIGHT WITHIN REACH.
--- NOTE | 2020-03-26 19:37 | Diagnostic Imaging Report ---
EXAMINATION: CHEST SINGLE (PORTABLE) INDICATION: assess for pulmonary edema COMPARISON: Chest x-ray on 03/22/2020 FINDINGS: TUBES and LINES: Right PICC which terminates at the atrial caval junction. LUNGS: Low lung volumes with bronchovascular crowding. There are prominent interstitial lung markings throughout both lungs. No consolidations. PLEURA: No pleural effusion or pneumothorax. HEART AND MEDIASTINUM: The cardiomediastinal silhouette is unremarkable. BONES AND SOFT TISSUES: No acute osseous lesion. Soft tissues are unremarkable. UPPER ABDOMEN: No free air under the diaphragm. IMPRESSION: Prominent interstitial lung markings throughout both lungs which may be due to bronchovascular crowding or mild pulmonary vascular congestion. No yuli pulmonary edema. No focal consolidation, pleural effusion or pneumothorax. Signed by: Asha Israel MD on 03/26/2020 7:34 PM
--- NOTE | 2020-03-26 19:55 | NUR ---
RECEIVED PATIENT IN BED AOX3 C/O PAIN AT HIP AND BACK. BED LOW, SIDE RAILS X2. CALL LIGHT IN REACH WILL CONTINUE TO MONITOR PATIENT.
[2020-03-27] VITALS (9 sets, daily range): BP systolic 88–110; BP diastolic 40–67
--- NOTE | 2020-03-27 05:36 | NUR ---
PT RESTED DURING THE NIGHT C/O PAIN AND GIVEN ORDERD PAIN MEDICATION
[2020-03-27] MEDS: HYDROCODONE/APAP 10MG-325MG TAB PO PRN (06:15)
[2020-03-27] MEDS: LEVOTHYROXINE SODIUM 75 MCG TAB PO SCH (06:28)
[2020-03-27] MEDS: LEVOTHYROXINE SODIUM 100 MCG TAB PO SCH (06:28)
[2020-03-27] MEDS: SODIUM CHLORIDE 0.9% 1000ML 1,000 ML IV SCH ×2 (07:00→22:02)
--- NOTE | 2020-03-27 07:17 | NUR ---
BEDSIDE REPORT GIVEN TO THE ONCOMING NURSE
[2020-03-27] MEDS: INSULIN LISPRO 100 UNIT/1 ML 3ML VIAL SQ SCH ×4 (07:30→21:00)
[2020-03-27 08:28] LABS: BASOPHILS # (AUTO) 0.1 (0.0-0.1); BASOPHILS % 0.3 % (0.0-1.0); HEMATOCRIT 27.3 % (34.2-44.1); HEMOGLOBIN 7.7 g/dL (12.0-16.0); LYMPHOCYTES % 3.8 % (18.0-39.1); MEAN CORPUSCULAR HEMOGLOBIN 21.6 pg (28-32); MEAN CORPUSCULAR HGB CONC 28.2 g/dL (31-35); MEAN CORPUSCULAR VOLUME 76.5 fL (81-99); MONOCYTES # (AUTO) 2.7 (0.2-0.8); NEUTROPHILS # (AUTO) 20.3 (2.1-6.9); NEUTROPHILS % 81.7 % (38.7-80.0); PLATELET COUNT 441 x10e3/uL (140-360); RED BLOOD COUNT 3.57 x10e6/uL (3.6-5.1); RED CELL DISTRIBUTION WIDTH 19.7 % (11.7-14.4)
[2020-03-27 08:57] LABS: ALBUMIN 2.2 g/dL (3.5-5.0); ALBUMIN/GLOBULIN RATIO 0.6 (0.8-2.0); ANION GAP 21.1 mmol/L (8-16); CALCIUM 8.3 mg/dL (8.4-10.2); CREATININE, SERUM 5.11 mg/dL (0.57-1.11); POTASSIUM 5.1 mmol/L (3.5-5.1)
[2020-03-27] MEDS: PREGABALIN 75 MG CAP PO SCH ×2 (09:00→17:00)
[2020-03-27] MEDS: SODIUM BICARBONATE 650 MG TAB PO SCH ×2 (09:00→17:00)
[2020-03-27] MEDS: LIDOCAINE 4% PATCH TP SCH (09:00)
[2020-03-27] MEDS: POLYETHYLENE GLYCOL 3350 17 GM PACK PO SCH (09:00)
[2020-03-27] MEDS: DOCUSATE SODIUM 100 MG CAP PO SCH ×2 (09:00→17:00)
[2020-03-27] MEDS ORDERED: HEPARIN SOD (PORCINE) 1000 UNIT/ML SDV ONE (09:37)
[2020-03-27] MEDS ORDERED: SODIUM CHLORIDE 0.9% 1000ML 2,000 ML ONE (10:01)
[2020-03-27] MEDS ORDERED: MIDAZOLAM HCL 2 MG/2 ML VIAL ONE (10:29)
[2020-03-27] MEDS ORDERED: FENTANYL CITRATE/PF 100MCG/2 ML INJ ONE (10:30)
[2020-03-27] MEDS ORDERED: MANNITOL 25% 12.5GM/50 ML VIAL IV PRN (11:15)
[2020-03-27] MEDS ORDERED: SODIUM CHLORIDE 0.9% 1000ML 2,000 ML IV PRN (11:15)
[2020-03-27] MEDS: HEPARIN SOD (PORCINE) 1000 UNIT/ML SDV IV PRN (11:31)
--- NOTE | 2020-03-27 11:51 | Diagnostic Imaging Report ---
Non-tunneled Dialysis Catheter Insertion History: Needs 10 for a hemodialysis for renal failure. Modality: Fluoroscopy. Sedation: None. Heater Helper: Jerome Kirkpatrick MD. Cloth Winder Machine Operator: None. Approach: Indwelling right central venous catheter within the right internal jugular vein. Estimated blood loss: < 5 cc. Specimen: None. Fluoroscopy Time: 0.2 min. Reference Air Kerma (Ka, r): 2.7 mGy. Technique: Informed written consent was obtained. Discussion of risks, benefits, and alternatives were made with the patient. The patient expressed understanding and agreed to proceed. A universal timeout was performed prior to starting the procedure. All elements maximal sterile barrier technique was utilized for this procedure, including utilization of sterile scrub solution for skin prep, a large sterile sheet to cover the areas of the patient that were not prepped, and hand hygiene, mask, head covering, and sterile gown for performing radiologist and scrub technologist. Initial spot radiograph of the right central venous catheter demonstrates tip within the lower SVC. A 0.035 inch wire was placed through the catheter into the IVC and a image was saved. The tract was serially dilated. The 20 cm 14 Urdu Schon XL catheter was placed over the wire with its distal tip terminating in the superior right atrium. The ports were flushed and aspirated easily following placement. The lumens were not locked with heparin as patient was going directly to dialysis. The catheter was sutured to the skin to secure its placement. Vital signs were monitored throughout the procedure by a nurse, and remained stable. The patient tolerated the procedure well and left the department in the same condition. Results: Spot radiograph of the chest demonstrates the new non-tunneled dialysis catheter to lie in the expected position with its tip overlying the right atrium. Impression: Successful, uncomplicated placement of a right internal jugular non-tunneled dialysis catheter using fluoroscopic guidance. The catheter is ready for immediate use. Signed by: Jerome Kirkpatrick MD on 03/27/2020 11:48 AM
--- NOTE | 2020-03-27 13:52 | Progress Note ---
DATE: 03/27/2020 Renal Progress Note SUBJECTIVE: The patient today had placement of a Eduardo catheter in the neck area. She is undergoing dialysis at this time. She was half asleep. It was reported to me that the patient was not lying down flat during the placement of the catheter because of some hip pain. She complaining a lot about this hip pain. PHYSICAL EXAMINATION: VITAL SIGNS: Blood pressure 93/40, pulse is 91, afebrile. GENERAL: The patient is morbidly obese. HEENT: The patient has a temporary Eduardo Trialysis catheter in the right neck area. CARDIOVASCULAR: Regular rhythm. LUNGS: Clear to auscultation. ABDOMEN: Decreased bowel sounds. EXTREMITIES: The patient has trace edema of the legs. LABORATORY RESULTS: Her LOLY, C-ANCA, p-ANCA, anti-GBM antibody, complements are all negative. Her kappa and lambda light chains are elevated. Her 24-hour urine protein is 894. No [place] [address], hemoglobin and hematocrit 7.7 and 27.3, and platelet count is 441. Sodium 132, potassium 5.1, chloride 105, bicarbonate 11, BUN and creatinine 63 and 5.1, and calcium 8.3. IMPRESSION: 1. Acute kidney injury. 2. Borderline hyponatremia. 3. Metabolic acidosis. 4. Hyperkalemia. 5. Questionable lymphadenopathy on a prior CT scan. 6. Elevated lambda light chains. PLAN: The patient is undergoing dialysis at this time. We are doing at 2 potassium, 2.5 calcium, 40 bicarb bath. She is tolerating the dialysis well. She will likely need dialysis tomorrow. I spoke to the pathologist, the preliminary results of the biopsy shows ATN on a background of diabetic nephropathy. Final report is to be made and the patient has elevated lambda and kappa free light chains, Hematology/Oncology consultation would be in order to rule out multiple myeloma or MGUS. Also, the ER doctor noted that on a prior CT, she had some retroperitoneal lymphadenopathy given the pain that she has been having in the back. I will order another CT of the abdomen and pelvis and probably Hematology/Oncology can look at this and see if she has some type of metastatic or some type of reactive process in place. Ather MD CINTHIA Carrillo/TRI /[id number]
[2020-03-27] MEDS: CEFTRIAXONE SOD 1 GM/NS 50 ML 50 ML IV SCH ×2 (14:00)
--- NOTE | 2020-03-27 14:00 | NUR ---
DIALYSIS COMPLETED 150ML PULLED. PATIENT'S VITALS STABLE.
[2020-03-27] MEDS: SODIUM FERRIC GLUCONATE COMPLX 125 MG in SODIUM CHLORIDE 0.9% 100 ML 100 ML IV SCH (15:38)
--- NOTE | 2020-03-27 16:02 | Diagnostic Imaging Report ---
EXAM: CT Abdomen and Pelvis WITHOUT intravenous contrast INDICATION: ^BACK PAIN ^[id number] ^[id number]. COMPARISON: 03/15/2020 TECHNIQUE: Abdomen and pelvis were scanned utilizing a multidetector helical scanner from the lung base to the pubic symphysis without administration of IV contrast. Coronal and sagittal reformations were obtained. Routine technique was performed. IV CONTRAST: None ORAL CONTRAST: None COMPLICATIONS: None RADIATION DOSE: Total DLP: 1015 mGy*cm Dose modulation, iterative reconstruction, and/or weight based adjustment of the mA/kV was utilized to reduce the radiation dose to as low as reasonably achievable. FINDINGS: Severely limited due to patient body habitus, inability to lay on their back and lack of IV and oral contrast. LOWER THORAX: Redemonstration of numerous lung nodules at the lung bases. The right basilar nodule measures approximately 1.1 cm, stable compared to prior exam. Left basilar atelectasis is noted. HEPATOBILIARY: Similar to prior exam there is suggestion of liver cirrhosis with enlargement of the left hepatic lobe and nodular contours. Small volume perihepatic ascites is noted. Small volume of perisplenic ascites is noted. No definite biliary dilatation is noted. Gallbladder is not identified and likely surgically absent. SPLEEN: Enlarged measuring up to 13.5 cm. PANCREAS: No focal masses or ductal dilatation. ADRENALS: No adrenal nodules. KIDNEYS/URETERS: No definite obstructing calculus or suspicious perinephric fluid collection. Ureters are not dilated. No surrounding inflammatory changes are noted. PELVIC ORGANS/BLADDER: Limited evaluation due to patient body habitus and streak artifact. Bladder appears to be unremarkable. Bulky uterus is noted. Adnexal regions are not well assessed. PERITONEUM / RETROPERITONEUM: Small volume upper abdominal ascites is noted. Negative for pneumoperitoneum. LYMPH NODES: Redemonstration of multiple enlarged retroperitoneal and iliac chain lymph nodes. VESSELS: Unremarkable. GI TRACT: Visualized bowel loops are not dilated. Stomach is decompressed. No dilated loops of small bowel are identified. BONES AND SOFT TISSUES: Osseous structures are mildly demineralized. There are severe diffuse degenerative changes of the thoracic and lumbar spine, most prominent at L4-5 and L5-S1 with posterior disc bulges and facet arthropathy causing bilateral neural foraminal stenosis, left greater than right. Moderate degenerative changes of the hip joints are noted. Induration and edema is noted within the partially visualized anterior soft tissues of the abdomen. IMPRESSION: Limited evaluation due to significant streak due to patient body habitus and inability to position properly. Also limited due to lack of IV and oral contrast. 1. No evidence of nephrolithiasis or hydronephrosis. 2. Stable cirrhotic liver morphology with splenomegaly and trace perihepatic/perisplenic ascites. 3. Stable numerous pulmonary nodules identified within the visualized lung bases measuring up to 1.1 cm at the medial right lung base. Stable diffuse iliac chain and retroperitoneal lymphadenopathy. Findings are again concerning for possible metastatic disease. 4. Stable probable fibroid uterus. Signed by: Jerome Kirkpatrick MD on 03/27/2020 3:59 PM
[2020-03-27] MEDS: HYDROMORPHONE 2MG/ML 2 MG/ML ML IV PRN (20:25)
--- NOTE | 2020-03-27 21:17 | NUR ---
RECEIVED PATIENT IN BED AOX3 C/O PAIN AT HIP AND BACK. PT T BED LOW, SIDE RAILS X2. PT HAS ANNELISE CATHETER AN D DIALYZED AND HAS TAKEN 150 ML CALL LIGHT IN REACH WILL CONTINUE TO MONITOR
[2020-03-28] VITALS (8 sets, daily range): BP systolic 81–116; BP diastolic 43–103
--- NOTE | 2020-03-28 02:36 | NUR ---
PT HAD ASSISTED FALL PT HAD DIALYSIS AND MARIBELL CATHETER PLACED DURING THE DAY SHIFT .GIVEN DILAUDID 2MG @2024.OFFERED PT TO TAKE BATHE ROOM AT 2300.PT WANTED TO TO STAY IN BED OFFERED BEDSIDE COMMODE .PT WAS ABLE TO GOING TO THE BATH ROOM HERSELF 03/26 PT WAS NOT VERY STRONG .TODAY PT WAS NOT VERY STABLE .TOLD HER TO CALL FOR HELP .BED ALARM WAS GOING PCT WENT TO THE ROOM AND OFFERED HER BEDSIDE COMMODE.,PT REFUSED .PT WENT TO THE RESTROOM WITH OUT LISTENING ,PT WAS GOING TO FALL ,PCT ASSITED TO HOLD HER ,PT WAS VERY HEAVY AND SHE FELL ON HIS RIGHT SIDE .PCT HELPED HER TO SIT ON THE FLOOR NO INJURY NOTIFEID WE WENT TO THE ROOM WITH HELP OF MANY CO.WORKERS AND KIM LIFT PUT THE PT BACK TO THE BED ,PHYSICAL ASSESSMENT DONE ,CALLED THE THE DOCTOR AND THE FAMILY. AND LEFT THE MESSAGE NOTIFIED ACCORDION REPAIRER AND CHARGE NURSE .PT IS RESTING I.CALL LIGHT WITH IN REACH CONTINUE TO MONITOR
--- NOTE | 2020-03-28 04:00 | NUR ---
SPOKE TO RAMAKRISHNA WITH SIZE CAMP. BARIATRIC BED AND BSC ORDERED. CONFIRMATION#[id number]. ITEMS TO BE DELIVERED THIS MORNING 03/28/20.
[2020-03-28] MEDS: LEVOTHYROXINE SODIUM 100 MCG TAB PO SCH (06:00)
[2020-03-28] MEDS: LEVOTHYROXINE SODIUM 75 MCG TAB PO SCH (06:00)
--- NOTE | 2020-03-28 06:14 | NUR ---
PT C/O PAIN AND GIVEN NORCO ,PT RESTING ,CONTINUE TO MONITOR
[2020-03-28] MEDS: HYDROCODONE/APAP 10MG-325MG TAB PO PRN ×2 (06:35→21:30)
--- NOTE | 2020-03-28 07:00 | NUR ---
RECEIVED BEDSIDE SHIFT REPORT FROM OFF GOING NIGHT NURSE. PATIENT IN STABLE CONDITION, NO S/S OF DISTRESS NOTED. IV FLUIDS INFUSING, SITE ASYMPTOMATIC AND PATIENT, TRANSPARENT DRESSING APPLIED C/D/I. BED ALARM. BED IN LOWEST POSITION AND LOCKED , SIDE RAILS X 3, NONSKID SOCKS APPLIED. CALL LIGHT WITHIN REACH.
--- NOTE | 2020-03-28 07:15 | NUR ---
TALKED TO THE FAMILY MEMBER MIKEY WRIGHT ABOUT THE FALL,BEDSIDE REPORT GIVEN TO HE ONCOMING NURSE.
[2020-03-28] MEDS: INSULIN LISPRO 100 UNIT/1 ML 3ML VIAL SQ SCH ×4 (07:30→21:00)
--- NOTE | 2020-03-28 08:12 | NUR ---
PATIENT IS RECEIVING DIALYSIS AT THIS TIME.
[2020-03-28] MEDS: DOCUSATE SODIUM 100 MG CAP PO SCH ×2 (08:16→16:55)
[2020-03-28] MEDS: PREGABALIN 75 MG CAP PO SCH ×2 (08:16→16:55)
[2020-03-28] MEDS: SODIUM BICARBONATE 650 MG TAB PO SCH ×2 (08:17→16:55)
[2020-03-28] MEDS: POLYETHYLENE GLYCOL 3350 17 GM PACK PO SCH (08:17)
[2020-03-28 09:11] LABS: ANION GAP 16.6 mmol/L (8-16); CALCIUM 7.4 mg/dL (8.4-10.2); CREATININE, SERUM 5.05 mg/dL (0.57-1.11); POTASSIUM 4.6 mmol/L (3.5-5.1)
[2020-03-28] MEDS: SODIUM CHLORIDE 0.9% 1000ML 1,000 ML IV SCH ×2 (09:40→23:00)
[2020-03-28] MEDS ORDERED: SODIUM CHLORIDE 0.9% 250ML 750 ML IV PRN (09:45)
[2020-03-28] MEDS: ALBUMIN 25% 12.5GM 0.25 GM/ML BTL IV PRN ×2 (09:52→11:43)
[2020-03-28] MEDS: HYDROMORPHONE 2MG/ML 2 MG/ML ML IV PRN (11:09)
--- NOTE | 2020-03-28 11:21 | Consultation ---
HISTORY OF PRESENT ILLNESS: Amina Dong is a 49-year-old female, referred to me for evaluation of retroperitoneal adenopathy. The patient presented to the ER because of back pain, subsequently was found to have progressive renal failure. SOCIAL HISTORY: Noncontributory. FAMILY HISTORY: Noncontributory. ALLERGIES: REPORTED NONE. MEDICATIONS: At this time, 1. Hydrocodone. 2. Synthroid. 3. Ceftriaxone. 4. Sodium chloride. 5. Hydromorphone. 6. Ferric sodium given intravenously. 7. Mannitol. 8. Lyrica. 9. Sodium bicarbonate. 10. Colace. 11. Polyethylene glycol. 12. Insulin. 13. Albumin. 14. Diphenhydramine. REVIEW OF SYSTEMS: HEENT: Normal. CARDIAC: History of hypertension. RESPIRATORY: The patient has multiple lung nodules. GI: History of cholecystectomy on August 16, 2018. : Now in renal failure. MUSCULOSKELETAL: Morbid obesity. NEUROENDOCRINE: History of hypothyroidism and diabetes mellitus. PHYSICAL EXAMINATION: GENERAL: A large built female, fairly anemic, no adenopathy. HEART: Within normal limits. LUNGS: Diffuse crepitations. ABDOMEN: Morbidly obese. RECTAL/VAGINAL: Examination could not be done. CENTRAL NERVOUS SYSTEM: Essentially normal. 2+ pitting edema of the feet. LABORATORY DATA: CBC of 03/20/2020 shows a hemoglobin of 8.7, hematocrit of 32.2, low MCV of 76.7, low MCHC of 27, high RDW of 18.9 with a white count of 11,480, and a platelet count of 358,000. The white count has gone as high as 21,810 on 03/27 with a marked shift to the left with 88% neutrophils. Chemistry shows a sodium of 128, potassium 4.3, chloride 96, CO2 low at 17, BUN and creatinine are 42 and 3.1. Total protein is 6.9, albumin low at 3.5, and globulins normal at 3.5. IMAGING DATA: Imaging consists of a CT scan of the abdomen which demonstrated the patient to have multiple lung nodules in the lung basis, some of them being 1.1 cm. The liver seems to be nodular. Small maddie-hepatic ascites. The gallbladder was not seen. There was enlarged spleen. As described retroperitoneal adenopathy. Bones, L4-L5 and L5-S1 posterior disk bulge. Also osteoporosis, degenerative changes in the thoracic and lumbar spine. IMPRESSION: 1. Retroperitoneal lymphadenopathy. 2. Chronic renal failure. 3. Hypertension. 4. Hypothyroidism. 5. Morbid obesity. 6. Diabetes mellitus. 7. Iron deficiency anemia. 8. Leukemoid reaction. 9. Acquired coagulopathy with a high PTT. 10. Multiple lung nodules. 11. Cirrhotic liver. 12. Ascites. 13. Splenomegaly. 14. osteoporosis. 15. L4-L5, L5-S1 disk disease. 16. Degenerative arthritis. 17. Status post cholecystectomy on 08/16/2018. 18. Hyponatremia. PLAN, COMMENTS, AND SUGGESTIONS: Multiple possibilities of retroperitoneal lymphadenopathy with iron deficiency anemia would be an underlying GI malignancy. Lymphoma is also considered. However, usually there is no metastasis to the lung in lymphomas. Lymph node biopsy would be the only way. If a colonoscopy was not done, that should be done. Prognosis of this patient will be determined by complete staging once the patient has a final diagnosis. Tumor markers may be of some help. However, the final diagnosis would depend on the biopsy of the lymph node when feasible. Thank you very much for allowing me to participate in management of this patient. I will confine myself to Hematology/Oncology only. MD CHRIS Victor/MODL /[id number] cc: MD Tam Peterson MD Dr. Syed.
[2020-03-28] MEDS: CEFTRIAXONE SOD 1 GM/NS 50 ML 50 ML IV SCH ×2 (12:50)
[2020-03-28] MEDS: LIDOCAINE 4% PATCH TP SCH (12:50)
[2020-03-28] MEDS: SODIUM FERRIC GLUCONATE COMPLX 125 MG in SODIUM CHLORIDE 0.9% 100 ML 100 ML IV SCH (14:35)
--- NOTE | 2020-03-28 16:03 | Progress Note ---
DATE: 03/28/2020 Renal Progress Note SUBJECTIVE: The patient underwent dialysis today. She is now sleeping, but easily arousable. PHYSICAL EXAMINATION: VITAL SIGNS: Blood pressure 81/43, pulse 103, afebrile, and respirations 16. GENERAL: The patient is morbidly obese. HEENT: The patient has a Eduardo catheter in the right neck area. CARDIOVASCULAR: Regular rate and rhythm. LUNGS: Clear to auscultation bilaterally. ABDOMEN: Positive bowel sounds. EXTREMITIES: The patient has trace edema of the legs. LABORATORY RESULTS: Sodium 133, potassium 4.6, chloride 102, bicarbonate 19, BUN and creatinine 56 and 5.0 respectively, calcium 7.4. No new CBC. IMPRESSION: 1. Acute kidney injury. 2. Metabolic acidosis, resolving. 3. Retroperitoneal lymphadenopathy. 4. Elevated lambda light chains in the urine. 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 6. Acute tubular injury. 7. Nodular diabetic glomerulopathy. 8. Arterial nephrosclerosis. PLAN: The patient underwent dialysis today. We did dialysis for 3 hours. She tolerated the dialysis well. We only took off about 500 to 600 mL. We did not take off any fluid because of her low blood pressure. Yesterday, the renal pathologist called me back and he said that he had done a special histochemical stain on the specimen that he had and it revealed that an additional finding into the acute tubular injury and the nodular diabetic glomerulopathy was that she also has fibrillary glomerulopathy with IgG lambda deposits. At the present time, Hematology/Oncology had been consulted. The Hematology/Oncology note is appreciated. I will coordinate with Hematology/Oncology to see any further action that is needed. She will probably need dialysis tomorrow. Also, please find the copy of the renal biopsy report attached inside the patient's chart. Ather MD CINTHIA Carrillo/TRI /[id number]
[2020-03-28] MEDS: EPOETIN ALFA-EPBX 10,000 UNIT/ML VIAL SC SCH (16:55)
[2020-03-29] VITALS (11 sets, daily range): BP systolic 80–113; BP diastolic 40–66
[2020-03-29] MEDS: CEFTRIAXONE SOD 1 GM/NS 50 ML 50 ML IV SCH ×2 (00:26→12:44)
[2020-03-29] MEDS: HYDROCODONE/APAP 10MG-325MG TAB PO PRN (02:00)
[2020-03-29] MEDS: LEVOTHYROXINE SODIUM 75 MCG TAB PO SCH (06:20)
[2020-03-29] MEDS: LEVOTHYROXINE SODIUM 100 MCG TAB PO SCH (06:20)
[2020-03-29 06:44] LABS: BASOPHILS % 0.2 % (0.0-1.0); HEMATOCRIT 25.1 % (34.2-44.1); LYMPHOCYTES # (AUTO) 0.8 (1.0-3.2); LYMPHOCYTES % 3.1 % (18.0-39.1); MEAN CORPUSCULAR HEMOGLOBIN 21.3 pg (28-32); MEAN CORPUSCULAR HGB CONC 27.9 g/dL (31-35); MEAN CORPUSCULAR VOLUME 76.5 fL (81-99); MONOCYTES # (AUTO) 2.6 (0.2-0.8); MONOCYTES % 10.6 % (4.4-11.3); NEUTROPHILS # (AUTO) 20.3 (2.1-6.9); NEUTROPHILS % 82.9 % (38.7-80.0); PLATELET COUNT 324 x10e3/uL (140-360); RED BLOOD COUNT 3.28 x10e6/uL (3.6-5.1); RED CELL DISTRIBUTION WIDTH 20.9 % (11.7-14.4)
[2020-03-29 06:58] LABS: ANION GAP 22.4 mmol/L (8-16); CALCIUM 8.2 mg/dL (8.4-10.2); CREATININE, SERUM 4.9 mg/dL (0.57-1.11); POTASSIUM 4.4 mmol/L (3.5-5.1)
[2020-03-29] MEDS: SODIUM CHLORIDE 0.9% 1000ML 1,000 ML IV SCH ×2 (07:02→12:20)
[2020-03-29] MEDS: INSULIN LISPRO 100 UNIT/1 ML 3ML VIAL SQ SCH ×4 (07:30→22:14)
[2020-03-29] MEDS: HYDROMORPHONE 2MG/ML 2 MG/ML ML IV PRN (07:43)
[2020-03-29] MEDS: PREGABALIN 75 MG CAP PO SCH ×2 (08:47→17:00)
[2020-03-29] MEDS: POLYETHYLENE GLYCOL 3350 17 GM PACK PO SCH (08:47)
[2020-03-29] MEDS: DOCUSATE SODIUM 100 MG CAP PO SCH ×2 (08:47→18:17)
[2020-03-29] MEDS: SODIUM BICARBONATE 650 MG TAB PO SCH ×2 (08:48→18:17)
[2020-03-29 08:53] LABS: BAND NEUTROPHILS % (MANUAL) 11 %; LYMPHOCYTES % (MANUAL) 4 % (19-48); METAMYELOCYTES % (MANUAL) 2 % (0-0); MONOCYTES % (MANUAL) 2 % (3.4-9.0); MYELOCYTES % (MANUAL) 1 % (0-0); NEUTROPHILS % (MANUAL) 80 % (40-74); RBC MORPHOLOGY COMMENT ABNORMAL
[2020-03-29 08:54] LABS: HYPOCHROMASIA FEW; MICROCYTOSIS MOD; POLYCHROMASIA FEW
[2020-03-29 08:55] LABS: PLATELET MORPHOLOGY COMMENT NORMAL
[2020-03-29 08:56] LABS: PLATELET ESTIMATE ADEQUATE
[2020-03-29] MEDS: LIDOCAINE 4% PATCH TP SCH (09:00)
--- NOTE | 2020-03-29 12:26 | Progress Note ---
DATE: I am covering Dr. Handy. SUBJECTIVE: The patient appears comfortable. She currently receiving hemodialysis. No worsening event noted. OBJECTIVE: GENERAL: Alert, awake, communicative. HEENT: Normocephalic and atraumatic. Sclerae pink. Conjunctiva clear. NECK: Supple. CHEST: Decreased breath sounds in the bases. CARDIOVASCULAR: Regular rate and rhythm. ABDOMEN: Soft. EXTREMITIES: No edema LABORATORY AND IMAGING DATA: Reviewed. ASSESSMENT AND PLAN: The patient with history of multiple medical condition. I am currently following for retroperitoneal lymphadenopathy. She supposed to get biopsy. Lymphoma is a possibility. The patient's current workup so far shows normal calcium. We will arrange biopsy after condition is stabilized. At this point, we will continue to follow Nephrology recommendations. Continue hemodialysis. We will monitor the patient very closely. MD CHAPINCITO Crump/MODL /[id number]
--- NOTE | 2020-03-29 13:21 | Progress Note ---
DATE: 03/29/2020 Renal Progress Note SUBJECTIVE: The patient is still lethargic, we have completed dialysis session on her. PHYSICAL EXAMINATION: VITAL SIGNS: Blood pressure 80/52, pulse 89, and respirations 22. GENERAL: The patient is morbidly obese. She is very lethargic. HEENT: The patient has a Eduardo catheter in the right neck area. CARDIOVASCULAR: Regular rhythm. LUNGS: Clear to auscultation bilaterally. ABDOMEN: Positive bowel sounds. EXTREMITIES: The patient has trace edema of the legs. LABORATORY RESULTS: Sodium 137, potassium 4.4, chloride 101, bicarbonate 18, and BUN and creatinine 44 and 4.9, respectively. White count is 24,000 and hemoglobin and hematocrit, 7 and 25, respectively. IMPRESSION: 1. Acute kidney injury. 2. Metabolic acidosis, resolving. 3. Retroperitoneal lymphadenopathy. 4. Elevated lambda light chains in the urine. 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 6. Acute tubular injury. 7. Nodular diabetic glomerulopathy. 8. Arterial nephrosclerosis. PLAN: The patient underwent another dialysis session today for 3-1/2 hours. No fluid was removed secondary to her low blood pressure. We used a 3K 2.5 calcium bath. The patient tolerated the dialysis well. If she is going to need ongoing dialysis, we will have to have her Eduardo catheter switched over to a tunneled catheter sometime next week. Ather MD CINTHIA Carrillo/TRI /[id number]
--- NOTE | 2020-03-29 13:32 | Progress Note ---
DATE: 03/29/2020 ADDENDUM: The patient is anemic. I will go ahead and start her on some Aranesp 60 mcg once a week. Also, her blood pressure is low, it was better earlier this morning. I am going to have them recheck the blood pressure in about half an hour and if it is still low, maybe she might need some IV fluids. Ather MD CINTHIA Carrillo/TRI /[id number]
[2020-03-29] MEDS ORDERED: SODIUM CHLORIDE 0.9% 500ML 500 ML IV ONE (13:45)
[2020-03-29] MEDS: SODIUM FERRIC GLUCONATE COMPLX 125 MG in SODIUM CHLORIDE 0.9% 100 ML 100 ML IV SCH (14:05)
[2020-03-29] MEDS ORDERED: SODIUM CHLORIDE 0.9% 250ML 250 ML IV ONE ×2 (16:45→21:45)
[2020-03-29] MEDS ORDERED: DIPHENHYDRAMINE HCL INJ 50 MG/ML VIAL IV ONE (16:45)
--- NOTE | 2020-03-29 18:58 | Progress Note ---
DATE: Internal Medicine Progress Note. SUBJECTIVE: The patient is complaining of severe back pain. She is confused today and hypotensive. OBJECTIVE: HEART: Showed regular rhythm. Normal S1, S2 sound. LUNGS: Clear bilaterally. ABDOMEN: Soft. EXTREMITIES: Show no edema. VITAL SIGNS: Blood pressure 95/60, temperature 98.4, heart rate 98 per minute, respiratory rate 20 per minute, O2 saturation 95%. LABORATORY DATA: On the CBC, we have a white count of 24.46, hemoglobin 7.0, hematocrit 25.1, and platelet count 324,000. On the BMP; sodium 137, potassium 4.4, chloride 101, CO2 to 18, BUN 44, creatinine 4.90, GFR is 79, glucose 124, the last one 110, and hemoglobin 1.0. She had a CT of the abdomen done which showed no evidence of nephrolithiasis, hydronephrosis, stable cirrhotic liver morphology with splenomegaly and trace perisplenic ascites. Pulmonary nodules identified within the visualized lung bases, measuring up to 1.1 cm in the medial again concerning for possible metastatic disease and stable fibroid uterus. PLAN OF TREATMENT: We are going to discontinue the because the patient is hypotensive and very confused today. The patient is on dialysis right now due to acute renal failure. Nephrology is on the case. Continue ceftriaxone 1 g IV twice a day for possible UTI, normal saline 75 mL an hour. Sodium ferric gluconate complex 125 mg IV daily, D50 push as needed for hypoglycemia, Benadryl 25 mg q.6 hours as needed for itching, Colace 100 mg twice a day, Epogen 10,000 units Tuesday, Tuesday, and Tuesday. Humalog, to check blood sugar with sliding scale a.c. and at bedtime, heparin 4000 units as needed for packing the dialysis catheter. Continue [place] 10/325 q.4 hours as needed for moderate pain. I am going to stop the because of hypotension. Continue levothyroxine 75 mcg daily. Continue Lidoderm patch 12 hours on and 12 hours off, Zofran 4 mg p.o. q.4 hours as needed for nausea and vomiting, MiraLAX 17 g daily, Lyrica 75 mg twice a day, sodium bicarbonate 1300 mg twice a day. We are going to continue monitoring the patient. The patient has been seen by Nephrology she might need also blood transfusion because of anemia. We are going to monitor CBC tomorrow. MD ASTRID Lara/TRI /[id number]
--- NOTE | 2020-03-29 21:31 | NUR ---
SPOKE TO DR. SALCEDO COVERING FOR DR. MEDEIROS AT THIS TIME REGARDING PATIENT BP READING 78/64, LETHARGIC BUT AROUSABLE AND C/O SEVERE PAIN. MD SAID TO GIVE 200ML OF NORMAL SALINE OVER 30MINS AND THEN PROCEED WITH BLOOD TRANSFUSION. DC BENADRYL IV THAT WAS ORDERED ONCE. NO NEW ORDER FOR PAIN.
[2020-03-30] VITALS (8 sets, daily range): BP systolic 107–128; BP diastolic 49–87
[2020-03-30] MEDS: SODIUM CHLORIDE 0.9% 1000ML 1,000 ML IV SCH (01:40)
[2020-03-30] MEDS: CEFTRIAXONE SOD 1 GM/NS 50 ML 50 ML IV SCH ×3 (01:40→23:36)
[2020-03-30] MEDS: HYDROCODONE/APAP 10MG-325MG TAB PO PRN ×5 (01:45→21:11)
[2020-03-30] MEDS: LEVOTHYROXINE SODIUM 75 MCG TAB PO SCH (05:21)
[2020-03-30] MEDS: LEVOTHYROXINE SODIUM 100 MCG TAB PO SCH (05:21)
[2020-03-30 06:37] LABS: BASOPHILS # (AUTO) 0.1 (0.0-0.1); BASOPHILS % 0.3 % (0.0-1.0); EOSINOPHILS % 0.1 % (0.0-6.0); HEMATOCRIT 27.8 % (34.2-44.1); HEMOGLOBIN 7.9 g/dL (12.0-16.0); LYMPHOCYTES % 3.6 % (18.0-39.1); MEAN CORPUSCULAR HEMOGLOBIN 22.2 pg (28-32); MEAN CORPUSCULAR HGB CONC 28.4 g/dL (31-35); MEAN CORPUSCULAR VOLUME 78.1 fL (81-99); MONOCYTES # (AUTO) 2.6 (0.2-0.8); MONOCYTES % 9.7 % (4.4-11.3); NEUTROPHILS # (AUTO) 22.3 (2.1-6.9); NEUTROPHILS % 82.1 % (38.7-80.0); PLATELET COUNT 260 x10e3/uL (140-360); RED BLOOD COUNT 3.56 x10e6/uL (3.6-5.1)
[2020-03-30 06:54] LABS: ANION GAP 21.2 mmol/L (8-16); CALCIUM 8.5 mg/dL (8.4-10.2); CREATININE, SERUM 4.52 mg/dL (0.57-1.11); POTASSIUM 4.2 mmol/L (3.5-5.1)
[2020-03-30] MEDS: PREGABALIN 75 MG CAP PO SCH ×2 (09:24→17:01)
[2020-03-30] MEDS: LIDOCAINE 4% PATCH TP SCH (09:24)
[2020-03-30] MEDS: POLYETHYLENE GLYCOL 3350 17 GM PACK PO SCH (09:24)
[2020-03-30] MEDS: SODIUM BICARBONATE 650 MG TAB PO SCH ×2 (09:24→17:01)
[2020-03-30] MEDS: DOCUSATE SODIUM 100 MG CAP PO SCH ×2 (09:24→17:01)
[2020-03-30] MEDS: ACETAMINOPHEN 325 MG TAB PO PRN (09:26)
[2020-03-30] MEDS: INSULIN LISPRO 100 UNIT/1 ML 3ML VIAL SQ SCH ×4 (09:27→21:00)
[2020-03-30] MEDS: SODIUM FERRIC GLUCONATE COMPLX 125 MG in SODIUM CHLORIDE 0.9% 100 ML 100 ML IV SCH (15:00)
--- NOTE | 2020-03-30 17:00 | Progress Note ---
DATE: Renal Progress Note SUBJECTIVE: The patient is a little bit more awake today. She still kind of lays down mostly and kind of groans, but she is more awake. She does not seem as lethargic as she was yesterday. PHYSICAL EXAMINATION: VITAL SIGNS: Blood pressure is 108/66, pulse 102. GENERAL: The patient is morbidly obese. She is a little bit more awake today. HEENT: The patient has a Eduardo catheter in the right neck area. CARDIOVASCULAR: Regular rate and rhythm. LUNGS: Clear to auscultation bilaterally. ABDOMEN: Positive bowel sounds. Nontender, nondistended. No rebound. EXTREMITIES: The patient has trace edema of the legs. LABORATORY RESULTS: White count 27,000, hemoglobin and hematocrit are 8 and 28 respectively. Sodium 136, potassium 4.2, chloride 100, bicarbonate 19, BUN and creatinine 35 and 4.5 respectively. IMPRESSION: 1. Acute kidney injury. 2. Retroperitoneal lymphadenopathy. 3. Elevated light chains in the urine. 4. Fibrillary glomerulopathy with IgG lambda deposits. 5. Acute tubular injury. 6. Nodular diabetic glomerulopathy. 7. Arterial nephrosclerosis. PLAN: The patient underwent dialysis yesterday, there is no need for dialysis today. She is on IV fluids; when this present bag of IV fluid finishes, we will stop the IV fluids. Her blood pressure has somewhat normalized and she is to undergo workup for her retroperitoneal lymphadenopathy tomorrow with biopsy. Further treatment will be based on those workup that yields, likely she might need dialysis tomorrow. MD CINTHIA Callejas/TRI /[id number]
--- NOTE | 2020-03-30 17:05 | Progress Note ---
DATE: Internal Medicine Progress Note SUBJECTIVE: The patient is complaining of abdominal distention, complaining of generalized pain. PHYSICAL EXAMINATION: VITAL SIGNS: Blood pressure 108/66, temperature 97.5, heart rate 102 per minute, respiratory rate 20 per minute, and O2 saturation 98%. HEART: Regular rhythm. Normal S1, S2 sound. LUNGS: Decreased breath sounds bilaterally, but significantly decreased. ABDOMEN: Soft, very distended. No tenderness. EXTREMITIES: No edema. LABORATORY DATA: On the blood work, we have a CBC; white count 27.13, hemoglobin 7.9, hematocrit 27.8, and platelet count 260,000 with predominance of neutrophils. On chemistry, we have sodium 136, potassium 4.2, chloride 100, CO2 of 19, BUN 35, creatinine 4.52, glucose 121, GFR is only 10, last blood sugar 124, and calcium 8.5. Serology; we have COVID-19 test which is negative. Hepatitis B surface antigen negative. Hepatitis B antibody is less than 3.1. Hepatitis B core antibody negative. ANCA titers are negative, complement so far negative, kappa light chain 64.7 and lambda is 50.6. FINAL IMPRESSION: 1. Acute renal failure. 2. Back pain. 3. Urinary tract infection. 4. Uncontrolled diabetes mellitus type 2 with diabetic nephropathy. 5. Morbid obesity. 6. Metabolic acidosis. 7. Cirrhosis of the liver. 8. Lung nodules, suspicious for malignancy. PLAN OF TREATMENT: We are going to continue dialysis. Continue ceftriaxone 1 g IV once a day. Continue with normal saline at 75 mL an hour, continue with bolus of IV fluids as needed. Continue sodium ferric gluconate complex 125 mg IV daily because of anemia. Tylenol 650 mg q.4 hours as needed for pain or fever. Albumin as needed for blood pressure support. Continue D50 IV push as needed for hypoglycemia, Benadryl 25 mg IV q.6 hours as needed for itching, Colace 100 mg twice a day, Epogen 10,000 units Tuesday, Tuesday, and Tuesday. Continue heparin as needed for catheter packing. Continue monitoring blood sugar before meals and at bedtime. Continue [place] 10/325 q.4 hours as needed for severe pain. Dilaudid has been discontinued because of the hypotension. Continue Synthroid 100 mcg daily, levothyroxine 75 mcg daily for a total of 0.175 mg daily. Continue Zofran 4 mg IV q.4 hours as needed for nausea and vomiting, MiraLAX 17 g daily, Lyrica 75 mg twice a day, and sodium bicarbonate 1300 mg twice a day. The patient is a very complex patient and she is on dialysis. We are doing a workup for pyelonephritis. Case discussed with the nurse. Blood works have been reviewed. X-rays have been reviewed. Pathology test is still pending. Plan of care has been developed. Time spent around 35 minutes. MD ASTRID Lara/TRI /[id number]
--- NOTE | 2020-03-30 17:40 | Progress Note ---
DATE: 03/30/2020 SUBJECTIVE: Amina Dong is a 49-year-old female referred to me for evaluation of retroperitoneal lymphadenopathy as well as lung metastases. The patient is still fairly iron deficient with a hemoglobin 7.9 with a low MCHC of only 28.4. The patient is still leukemoid with 27,130, platelets of 260,000 as suspected and discussed with Dr. Bro Flores. This could be a lymphoma. This could be a GI malignancy. Biopsy of either retroperitoneal lymph node or lung would be very difficult at this time because of potential sepsis and because of morbid obesity. Eventually, I suggest biopsy of the retroperitoneal lymph node as opposed to the lung because of her body habitus, if she collapses the lung, it will be a massive emergency. Markers I have ordered, the patient also needs to be given blood transfusion as Infed will take approximately 12 days before it would even really start working. Thank you very much for allowing me to participate in management of this patient. MD CHRIS Victor/TRI /[id number]
--- NOTE | 2020-03-30 19:30 | NUR ---
Report given to oncoming nurse of patient's status. No s/s of acute distress noted. Side rails upx2, call light within reach
[2020-03-31] VITALS (8 sets, daily range): BP systolic 83–114; BP diastolic 45–67
[2020-03-31 05:19] LABS: BASOPHILS # (AUTO) 0.1 (0.0-0.1); BASOPHILS % 0.2 % (0.0-1.0); EOSINOPHILS % 0.1 % (0.0-6.0); HEMATOCRIT 29.6 % (34.2-44.1); HEMOGLOBIN 8.2 g/dL (12.0-16.0); LYMPHOCYTES # (AUTO) 1.3 (1.0-3.2); LYMPHOCYTES % 4.5 % (18.0-39.1); MEAN CORPUSCULAR HEMOGLOBIN 22.1 pg (28-32); MEAN CORPUSCULAR HGB CONC 27.7 g/dL (31-35); MEAN CORPUSCULAR VOLUME 79.8 fL (81-99); MONOCYTES # (AUTO) 2.8 (0.2-0.8); MONOCYTES % 9.5 % (4.4-11.3); NEUTROPHILS # (AUTO) 23.7 (2.1-6.9); NEUTROPHILS % 80.6 % (38.7-80.0); PLATELET COUNT 233 x10e3/uL (140-360); RED BLOOD COUNT 3.71 x10e6/uL (3.6-5.1)
[2020-03-31] MEDS: LEVOTHYROXINE SODIUM 100 MCG TAB PO SCH (05:29)
[2020-03-31] MEDS: LEVOTHYROXINE SODIUM 75 MCG TAB PO SCH (05:29)
[2020-03-31] MEDS: HYDROCODONE/APAP 10MG-325MG TAB PO PRN ×5 (05:31→21:20)
[2020-03-31 05:37] LABS: ANION GAP 22.5 mmol/L (8-16); CALCIUM 8.6 mg/dL (8.4-10.2); CREATININE, SERUM 5.65 mg/dL (0.57-1.11); POTASSIUM 4.5 mmol/L (3.5-5.1)
[2020-03-31] MEDS: INSULIN LISPRO 100 UNIT/1 ML 3ML VIAL SQ SCH ×4 (07:30→21:00)
--- NOTE | 2020-03-31 08:03 | NUR ---
paged Dr.Haddad White to notify of WBC 29.39
--- NOTE | 2020-03-31 08:13 | NUR ---
aware of WBC 29.39. No new orders Addendum: 03/31/20 at 0825 by SOFIE MOLINA RN Aware patient lethargic
--- NOTE | 2020-03-31 09:00 | NUR ---
Pt unable to hold conversation- apparently very sleepy. Will follow as able. SONAL LEVIN Day Light Relief Operator Spiritual Care Department O: [phone]
[2020-03-31] MEDS: SODIUM BICARBONATE 650 MG TAB PO SCH ×2 (09:40→16:43)
[2020-03-31] MEDS: POLYETHYLENE GLYCOL 3350 17 GM PACK PO SCH (09:40)
[2020-03-31] MEDS: LIDOCAINE 4% PATCH TP SCH (09:40)
[2020-03-31] MEDS: DOCUSATE SODIUM 100 MG CAP PO SCH ×2 (09:40→16:43)
[2020-03-31] MEDS: PREGABALIN 75 MG CAP PO SCH ×2 (09:40→16:43)
--- NOTE | 2020-03-31 12:40 | NUR ---
Patient agrees to procedure, but requesting for Genie Gil (niece)
--- NOTE | 2020-03-31 12:54 | Progress Note ---
DATE: 03/31/2020 SUBJECTIVE: Amina Dong is a 49-year-old female referred to me for evaluation of retroperitoneal lymphadenopathy and lung metastases. The patient's body habitus such that lung biopsy and/or retroperitoneal biopsy would almost be impossible, however, this could be tried because of iron deficiency. I have suggested colonoscopy. I will order a few tumor markers either the lung biopsy or retroperitoneal biopsy if possible should be done for any diagnosis. Prognosis remains extremely poor because inability of the patient to walk, but confined them because of morbid obesity. MD CHRIS Victor/TRI /[id number]
--- NOTE | 2020-03-31 13:00 | NUR ---
Dr.Khokar Brooks. aware of BP 83/45. See orders
[2020-03-31] MEDS ORDERED: SODIUM CHLORIDE 0.9% 500ML 500 ML ONE (13:25)
[2020-03-31] MEDS ORDERED: SODIUM CHLORIDE 0.9% 500ML 500 ML IV ONE (13:30)
[2020-03-31] MEDS ORDERED: MIDODRINE HCL 5 MG TABLET PO ONE (13:45)
[2020-03-31] MEDS: CEFTRIAXONE SOD 1 GM/NS 50 ML 50 ML IV SCH ×2 (14:10→23:09)
--- NOTE | 2020-03-31 14:29 | Progress Note ---
DATE: 03/31/2020 Renal Progress Note SUBJECTIVE: The patient is undergoing dialysis at this time. She is lethargic. She does awaken and try to respond to some questions, but for the most part she is groggy and lethargic. PHYSICAL EXAMINATION: VITAL SIGNS: Her blood pressure earlier was like her systolic was 76, right now it is 92/51. GENERAL: She is morbidly obese. The patient has a Eduardo catheter in the right neck area. CARDIOVASCULAR: Regular rhythm. LUNGS: Decreased breath sounds bilaterally. ABDOMEN: The patient is morbidly obese. EXTREMITIES: Trace edema of the legs. LABORATORY RESULTS: White count is 30,000, hemoglobin and hematocrit 8 and 29 respectively. Sodium 138, potassium 4.5, chloride 101, bicarbonate 19, and BUN and creatinine 43 and 5.6 respectively. IMPRESSION: 1. Acute kidney injury. 2. Retroperitoneal lymphadenopathy. 3. Elevated light chains in the urine. 4. Fibrillary glomerulopathy with IgG lambda deposits. 5. Acute tubular injury. 6. Nodular diabetic glomerulopathy. 7. Arterial nephrosclerosis. PLAN: The patient is undergoing dialysis. At this time, we will use a 3K, 2.5 calcium. We are not going to ultrafilter any fluids secondary to her hypotension and she is tolerating the dialysis well and wanted need to change her Eduardo catheter to a tunneled dialysis catheter. She is hypotensive. I am going to go ahead and give her 500 mL of normal saline at 100 mL an hour and then also going to start midodrine. She is going for biopsy today. Her prognosis is extremely guarded. Her white count continues to go up. Ather MD CINTHIA Carrillo/MODL /[id number]
[2020-03-31] MEDS ORDERED: MIDAZOLAM HCL 2 MG/2 ML VIAL ONE (14:50)
[2020-03-31] MEDS ORDERED: FENTANYL CITRATE/PF 100MCG/2 ML INJ ONE (14:51)
[2020-03-31] MEDS: HEPARIN SOD (PORCINE) 1000 UNIT/ML SDV IV PRN (15:29)
[2020-03-31] MEDS: ALBUMIN 25% 12.5GM 0.25 GM/ML BTL IV PRN (15:29)
--- NOTE | 2020-03-31 16:00 | NUR ---
Per radiology, unable to do procedure due to weight. Paged Dr. Velazquez to notify of situation. Awaiting call back
--- NOTE | 2020-03-31 16:38 | Diagnostic Imaging Report ---
CT guided abdominal biopsy, attempted. History: Retroperitoneal adenopathy. Contrast: None Medication: 1 mg Versed, 50 mcg fentanyl IV. Conscious sedation time: 30 minutes. EBL: None Specimen: None. RADIATION DOSE: Total DLP: 1095 mGy*cm Dose modulation, iterative reconstruction, and/or weight based adjustment of the mA/kV was utilized to reduce the radiation dose to as low as reasonably achievable. Technique: After informed consent was obtained, the patient was placed on the CT gantry in the right lateral decubitus position. Despite extensive efforts at positioning, the area of interest could not be visualized in a nonsupine position due to patient body habitus. IMPRESSION: Unsuccessful CT-guided abdominal biopsy due to patient body habitus. The region of interest is not accessible. Signed by: Vipin Art on 03/31/2020 4:35 PM
[2020-03-31] MEDS: MIDODRINE HCL 5 MG TABLET PO SCH (16:43)
[2020-03-31] MEDS: SODIUM FERRIC GLUCONATE COMPLX 125 MG in SODIUM CHLORIDE 0.9% 100 ML 100 ML IV SCH (16:43)
--- NOTE | 2020-03-31 17:28 | NUR ---
Dr.Quraishi Chau aware radiology unable to do biopsy. No new orders
--- NOTE | 2020-03-31 18:10 | NUR ---
Nutrition Intervention Note RD Recommendation(s) for Physician: -Continue 1800 ADA diet, consider Renal restrictions if K and/or Phos trend up -Recommend Nepro BID for adequacy Plan of Care: RD following, monitoring for tolerance and adequacy, oral supplement recommendation Nutrition reason for involvement: follow up RD Assessment 03/31: Follow up. Pt lethargic and sleepy today, unable to answer questions. Received HD tx today. Pt with fluctuating po intake, 0-75% of meals- not meeting needs. Questionable wt gain since admit, recommend reweighing pt. Chart reviewed. Rec's provided. (03/26/20) Chart reviewed. Labs and meds reviewed. Pt is a 49 year old female admitted with acute renal failure, back pain, hyponatremia, rectoperitoneal lymphadenopathy, and sciatica. Dialysis is being discussed. Pt reports a decreased appetite for 2 weeks and has only been eating a few bites of food. Pt also mentioned she usually weighs 330 lbs. No N/V or chewing/swallowing issues noted. Pt declined the need for diet education and was not interested in a nutrition supplement. Will continue to monitor. Principal Problems/Diagnoses: acute renal failure, back pain, hyponatremia, rectoperitoneal lymphadenopathy, and sciatica PMH: diabetes, hypertension, hypothyroid GI: soft/non-tender abdomen, no BM recorded Skin: intact Labs: 03/31: Na 138, K 4.5, BUN 43, Cr 5.65, Gluc 120, Ca 8.6 (03/26) Na 130, K 5.5, BUN 60, Cr 4.0, Glu 109, Ca 8.7, (03/21) Phos 5.3 Meds: abx, norco, Na bicarb, colace, miralax, synthroid, IV Fe Ht: 69 in Wt: 375.25 lb (03/31) 330 lb (03/26) BMI: 48.7 kg/m2 IBW:145 lb Malnutrition Evaluation (03/26/20) The patient does not meet criteria for a specified degree of malnutrition at this time. Will re-evaluate at follow-up as appropriate. Energy intake: <50% of estimated energy requirements for >5 days Weight loss: No weight loss indicated Fat loss: no loss identified per observation Muscle loss: no loss identified per observation Supporting Evidence: Fluid accumulation: trace edema Functional Status: not assessed Nutrition Prescription (Diet Order): 1800 ADA Estimated Nutritional Needs: 0617-0438 calories/day (22-25 kcal/kg IBW) 99-130 mg protein/day (1.5-2 g pro/kg IBW) Diet Adequacy: Not meeting calorie needs, Not meeting protein needs Tolerance: Tolerating PO Diet Education Needs Assessment: Diet education indicated, but patient declined. Nutrition Care Level: high- inadequate intake Nutrition Diagnosis: Inadequate energy intake related to decreased ability to consume sufficient energy as evidenced by insufficient energy intake from diet compared to needs per pt report. Goal: Patient will meet 75-100% of estimated needs by follow up Progress: not progressing Interventions: -mineral and carbohydrate - modified diet, Commercial beverage Monitoring/Evaluation: -Total energy intake, Total protein intake, Modified diet, Liquid supplement, Weight change Signed: Quyen Haynes RD, LD, [facility]
--- NOTE | 2020-03-31 19:00 | NUR ---
Report given to oncoming nurse of patient's status. Resting in bed. Side rails upx3, call light within reach.
--- NOTE | 2020-03-31 21:20 | NUR ---
PATIENT LAYING IN BED AOX1-2, AND IS LETHARGIC. IV FLUIDS ARE RUNNING AT ORDERED RATE AND VITALS ARE IN STABLE CONDITION. PATIENT HAS BEEN TURNED TO LEFT SIDE AND VOICES PAIN AT A LEVEL OF 10, WAS MEDICATED ORDERED. BED IS IN LOWEST POSITION, BOTH SIDE RAILS ARE UP, BED ALARM IS ON, CALL LIGHT IS WITHIN EASY REACH, WILL CONTINUE TO MONITOR.
[2020-04-01] VITALS (7 sets, daily range): BP systolic 101–108; BP diastolic 50–71
[2020-04-01] MEDS: LEVOTHYROXINE SODIUM 75 MCG TAB PO SCH (06:00)
[2020-04-01] MEDS: LEVOTHYROXINE SODIUM 100 MCG TAB PO SCH (06:00)
[2020-04-01] MEDS: INSULIN LISPRO 100 UNIT/1 ML 3ML VIAL SQ SCH ×4 (07:30→21:00)
[2020-04-01 08:22] LABS: ANION GAP 20.6 mmol/L (8-16); CALCIUM 8.3 mg/dL (8.4-10.2); CREATININE, SERUM 4.54 mg/dL (0.57-1.11); POTASSIUM 4.6 mmol/L (3.5-5.1)
[2020-04-01] MEDS: DOCUSATE SODIUM 100 MG CAP PO SCH ×2 (09:06→17:31)
[2020-04-01] MEDS: MIDODRINE HCL 5 MG TABLET PO SCH ×2 (09:06→17:31)
[2020-04-01] MEDS: POLYETHYLENE GLYCOL 3350 17 GM PACK PO SCH (09:06)
[2020-04-01] MEDS: BACITRACIN/POLYMYXIN 30 GM OINT TP SCH (09:06)
[2020-04-01] MEDS: PREGABALIN 75 MG CAP PO SCH ×2 (09:06→17:31)
[2020-04-01] MEDS: LIDOCAINE 4% PATCH TP SCH (09:06)
[2020-04-01] MEDS: SODIUM BICARBONATE 650 MG TAB PO SCH ×2 (09:06→17:31)
--- NOTE | 2020-04-01 14:10 | Progress Note ---
DATE: 04/01/2020 SUBJECTIVE: Amina Dong is a 49-year-old white female, referred to me for evaluation of retroperitoneal lymphadenopathy as well as lung metastases. The patient clinically remains the same. A low hemoglobin of 8.2 with indices suggestive of iron deficiency. White count of 29,390, platelets of 233,000. As discussed with Dr. Bro Flores, it would be impossible to biopsy either the retroperitoneal lymph nodes or the lung because of her body habitus being very obese. Tumor markers such as CEA and LDH were suggested. The LDH is high at 744, LDH is one of the markers of lymphoma. As dictated before, colonoscopy is also suggested. I will confine myself to Hematology. My consultation remains the same. Thank you very much for allowing me to participate in the management of this patient. The patient perhaps would be a candidate for hospice. Unfortunately, it would be impossible to do a biopsy in this morbidly obese person and treatment would also be very difficult because of transportation for any kind of treatment. First of all, the treatment will depend on the diagnosis. Francis Handy MD MAQ/MODL /[id number] cc: Bro Flores MD
--- NOTE | 2020-04-01 15:00 | NUR ---
Spoke with Dr. Marques, stated that patient needs Tunneled dialysis catheter for snf HD.
[2020-04-01] MEDS: SODIUM FERRIC GLUCONATE COMPLX 125 MG in SODIUM CHLORIDE 0.9% 100 ML 100 ML IV SCH (17:30)
--- NOTE | 2020-04-01 17:30 | NUR ---
Verbal order given by Dr. Jade Flores to give soap suds enema and digital impaction if necessary. Patient c/o not having a bowel movement for few days and have abdominal discomfort.
[2020-04-01] MEDS: CEFTRIAXONE SOD 1 GM/NS 50 ML 50 ML IV SCH (18:23)
[2020-04-01] MEDS ORDERED: SODIUM CHLORIDE 0.9% 250ML 250 ML ONE (18:30)
--- NOTE | 2020-04-01 18:30 | NUR ---
Soap suds enema administered. No stools noted. Respiration even and unlabored without SOB.
--- NOTE | 2020-04-01 19:15 | NUR ---
patient received awake, alert, lying quietly in bed. vss. no c/o pain noted. pm assessment complete. niece remains at the bedside. patient/niece instructed to call for assistance when needed.
--- NOTE | 2020-04-01 21:36 | Progress Note ---
DATE: 04/01/2020 Renal Progress Note SUBJECTIVE: Events over the past 24 hours have been noted. The patient is a little bit more alert today than yesterday, however, she still remains pretty much bedridden. MEDICATIONS: Include sodium bicarbonate b.i.d. PHYSICAL EXAMINATION: VITAL SIGNS: Blood pressure 107/58, heart rate 101, afebrile. GENERAL: The patient is morbidly obese. The patient has a Eduardo catheter in the right neck area. CARDIOVASCULAR: Regular rate and rhythm. LUNGS: Decreased breath sounds at the bases bilaterally. ABDOMEN: The patient is morbidly obese. EXTREMITIES: No significant edema. LABORATORY RESULTS: White count 29.3. Hemoglobin and hematocrit 8.2 and 29.6. Sodium 139, potassium 4.6, chloride 102, bicarbonate 21, BUN and creatinine 32 and 4.5 respectively. IMPRESSION: 1. Acute kidney injury. 2. Retroperitoneal lymphadenopathy. 3. Elevated light chains in urine. 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 5. Acute tubular injury. 6. Nodular diabetic glomerulopathy. 7. Arterial nephrosclerosis. PLAN: The patient did undergo dialysis yesterday. We did not take off any fluids because the patient has been hypotensive. The patient's blood pressure is a little bit better now that she is on midodrine. It appears that the retroperitoneal lymph node biopsy is not going to be done here and the patient does not need dialysis at this time. We will continue the midodrine. She will probably need to have a tunneled dialysis catheter placed in place of the temporary Eduardo since it looks like she might be needing ongoing dialysis. Ather MD CINTHIA Carrillo/MODL /[id number]
[2020-04-01] MEDS: ACETAMINOPHEN 325 MG TAB PO PRN (22:54)
[2020-04-02] VITALS (17 sets, daily range): BP systolic 84–115; BP diastolic 38–70
--- NOTE | 2020-04-02 02:00 | NUR ---
call placed to Dr. Jade Flores re: pain medication. patient continues to cry out with c/o pain. waiting for return call.
--- NOTE | 2020-04-02 02:20 | NUR ---
Dr. Jade Flores recalled re: pain medication. no answer noted. message left at this time.
[2020-04-02] MEDS ORDERED: HYDROMORPHONE 2MG/ML 2 MG/ML ML IV ONE (03:15)
[2020-04-02] MEDS ORDERED: ONDANSETRON HCL INJ 2MG/ML 2ML 2 MG/ML VIAL IV STA (03:16)
--- NOTE | 2020-04-02 03:24 | NUR ---
return call received from . pain medication ordered x 1 dose only.
[2020-04-02] MEDS: CEFTRIAXONE SOD 1 GM/NS 50 ML 50 ML IV SCH ×2 (05:44→17:17)
[2020-04-02] MEDS: LEVOTHYROXINE SODIUM 100 MCG TAB PO SCH (05:45)
[2020-04-02] MEDS: LEVOTHYROXINE SODIUM 75 MCG TAB PO SCH (05:45)
[2020-04-02] MEDS: INSULIN LISPRO 100 UNIT/1 ML 3ML VIAL SQ SCH ×4 (07:30→21:00)
[2020-04-02] MEDS: DOCUSATE SODIUM 100 MG CAP PO SCH ×2 (09:00→15:49)
[2020-04-02] MEDS: SODIUM BICARBONATE 650 MG TAB PO SCH ×2 (09:00→15:49)
[2020-04-02] MEDS: MIDODRINE HCL 5 MG TABLET PO SCH ×2 (09:00→15:49)
[2020-04-02] MEDS: POLYETHYLENE GLYCOL 3350 17 GM PACK PO SCH (09:00)
--- NOTE | 2020-04-02 09:21 | NUR ---
ASSESSMENT: Spiritual concern Pt's niece at bedside and pt sleeping soundly. Pt's niece worried about her health. Pt's niece states she is "getting worse" and is hopeful for transfer to [facility]. Pt's niece states her aunt "does for everyone else" and is very giving to those in need. Pt's niece states pt is planning niece's wedding which is "in a few weeks." Niece states pt identifies as Quaker. Intervention: Adjunct Teacher provided hospitality, unhurried empathic listening and service recovery. Facilitated identification of emotions and provided prayer. Provided information on how to reach sponge fisherman, if needed. Outcome: Pt's niece expressed appreciation for support. Followed up w/ RN. Will follow as able. SONAL LEVIN Adjunct Teacher Spiritual Care Department O: [phone]
[2020-04-02 09:59] LABS: ANION GAP 22.2 mmol/L (8-16); CALCIUM 8.7 mg/dL (8.4-10.2); CREATININE, SERUM 5.72 mg/dL (0.57-1.11); POTASSIUM 5.2 mmol/L (3.5-5.1)
[2020-04-02] MEDS: LIDOCAINE 4% PATCH TP SCH (10:23)
[2020-04-02] MEDS: BACITRACIN/POLYMYXIN 30 GM OINT TP SCH (10:23)
--- NOTE | 2020-04-02 11:14 | NUR ---
Therapy is on hold as pt is moving to higher level of care. Pt will need new PT orders when pt is appropriate for therapy. Addendum: 04/02/20 at 1115 by Glo Hanley PT Amended: Links added.
--- NOTE | 2020-04-02 11:38 | Consultation ---
DATE OF CONSULTATION: REASON FOR CONSULTATION: Pneumonia, sepsis. HISTORY OF PRESENT ILLNESS: This patient, who is a 49-year-old white female, history of morbidly obese patient. According to the family, the patient was in her usual state of health until about a week or 2 ago when she had some back pain. She went to the emergency room center. She was given antibiotic. Her creatinine was 1.77, apparently in August was 0.7. She had UTI few weeks ago. She took Macrobid, was not getting any better because of the pain. Apparently, she was given ciprofloxacin without any better. Two days before admission, she has increased abdominal pain and she came here, where she was admitted. CAT scan was done and showed she had retroperitoneal lymphadenopathy. The patient, who has been seen by Renal. The patient, who has history of morbidly obese patient, hypothyroidism, and diabetes. She was diagnosed with retroperitoneal lymphadenopathy. She was also diagnosed with [id number] kidney failure. She has multiple lung nodules, cirrhotic liver, and splenomegaly. All these were diagnosed with this admission. The family had no idea that she had all these problems before she came here. There was concern that she had malignancy; however, attempt to do a CT-guided biopsy was unsuccessful because of her obesity. The patient also is having abdominal pain. The patient was supposed to go on dialysis, however, could not obtain a permanent IV access, but temporary IV access for dialysis was inserted. She is in severe pain. The patient became lethargic and agitated yesterday. Today, she is noncommunicative. LABORATORY DATA: Her white count is 29.9 today and hemoglobin 8.2. Her sodium 138, potassium 5.2 with creatinine of 5.7. I was asked to see her. MEDICATIONS: The patient has been on Rocephin. She is also on Tylenol and Colace. PHYSICAL EXAMINATION: GENERAL: The patient is noncommunicative. VITAL SIGNS: Temperature 97.5, heart rate of 98, respirations 22, and blood pressure 105/21. HEENT: Normocephalic. NECK: Supple. CHEST: Crackles. ABDOMEN: Morbidly obese. IMPRESSION: 1. Altered mental status, could be metabolic, concerned about sepsis, concerned about aspiration. 2. Morbidly obese patient. 3. Cirrhotic liver. 4. Splenomegaly. 5. Chronic kidney disease. 6. Pulmonary nodules reflecting probably metastases. Primary malignancy is unknown. At present time, could not be obtained because of obesity. Discussed with the family, concerned about respiratory failure. We are going to transfer the patient to intensive care unit to protect her airway. We will observe her in the ICU setting. We will change cefepime 1 g daily. Her prognosis is extremely poor because of all these medical problems that she is having. Discussed with the family. Answered all their questions. Medical team was present when I was talking to then. MD JOSH Veras/TRI /[id number]
--- NOTE | 2020-04-02 11:47 | NUR ---
Report given to ICU nurse.
--- NOTE | 2020-04-02 11:54 | NUR ---
Transported patient to ICU room 192 as ordered. All personal belongings are taken by family member.
--- NOTE | 2020-04-02 12:01 | NUR ---
WE HAVE WRONG NUMBER ON FACESHEET FOR MOTHER HER NUMBER IS [phone] AND WANTS TO SPEAK WITH DR MEDEIROS AND DR Lund, ARRANGED PHONE CALL FOR ALL TO SPEAK. MOTHER STATES FAMILY IS COMING INTO TOWN AND WILL HAVE A CONVERSATION ABOUT PLAN OF CARE. DR MEDEIROS SPOKE TO HER ABOUT THE TRANSFER TO [facility], WE WERE TOLD MOTHER WANTS TO CHANGE TO [facility] IS HANDLING THE TRANSFER. WILL UPDATE IF ABLE TO GET MORE INFORMATION.
[2020-04-02 12:37] LABS: ABG HCO3 22 mmol/L (22-26); ABG PCO2 44 mmHg (35-45); ABG PH 7.32 (7.35-7.45); ABG PO2 94 mmHg (80-105); ABG TCO2 23
[2020-04-02] MEDS: SODIUM FERRIC GLUCONATE COMPLX 125 MG in SODIUM CHLORIDE 0.9% 100 ML 100 ML IV SCH (14:01)
--- NOTE | 2020-04-02 14:24 | Progress Note ---
DATE: 04/02/2020 Renal Progress Note SUBJECTIVE: Events over the past 24 hours have been noted. The patient is transferred into the ICU because of increased lethargy and also hypotension. PHYSICAL EXAMINATION: VITAL SIGNS: Blood pressure 90/48, pulse 97, afebrile. Is and Os are not being capped. GENERAL: The patient is morbidly obese. The patient has a Eduardo catheter in the right neck area. CARDIOVASCULAR: Regular rate and rhythm. LUNGS: Decreased breath sounds at the bases bilaterally. ABDOMEN: Positive bowel sounds. The patient is morbidly obese. EXTREMITIES: No significant edema. LABORATORY RESULTS: Sodium 138, potassium 5.2, chloride 101, bicarbonate 20, BUN and creatinine 42 and 5.7 respectively. IMPRESSION/PLAN: 1. Acute kidney injury. 2. Retroperitoneal lymphadenopathy. 3. Elevated light chains in urine. 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 5. Acute tubular injury. 6. Nodular diabetic glomerulopathy. 7. Arterial nephrosclerosis. The patient is going to undergo dialysis today. We will do dialysis, 2 potassium, 2.5 calcium. We will probably ultrafilter no more than 1 L. We actually will not ultrafilter anything because of her hypotension. I discussed the case with Dr. Flores. We feel the patient would be better off transfer to [facility] to a higher level of care. I have spoke to Dr. Whiteside, the bundle clerk at [facility] in the [facility]. He has agreed to take care of the patient over there as a consulting bundle clerk. We are working on having the patient transferred to [facility] in the [facility]. Ather MD CINTHIA Carrillo/TRI /[id number]
--- NOTE | 2020-04-02 15:00 | NUR ---
CALLED MOTHER YANNICK [phone] LET HER KNOW WE HAVE A ACCEPTING DOCTOR AT [facility], ASKED HER HOW SHE WANTED TO PROCEED. SHE STATES TO CONTINUE WITH THE TRANSFER.
--- NOTE | 2020-04-02 15:04 | NUR ---
LET HOUSE SUP KNOW MOTHERS DECISION
[2020-04-02 16:59] LABS: BASOPHILS # (AUTO) 0.1 (0.0-0.1); BASOPHILS % 0.2 % (0.0-1.0); EOSINOPHILS # (AUTO) 0.1 (0.0-0.4); EOSINOPHILS % 0.2 % (0.0-6.0); HEMATOCRIT 29.1 % (34.2-44.1); HEMOGLOBIN 8.3 g/dL (12.0-16.0); LYMPHOCYTES # (AUTO) 1.4 (1.0-3.2); LYMPHOCYTES % 4.9 % (18.0-39.1); MEAN CORPUSCULAR HEMOGLOBIN 24.4 pg (28-32); MEAN CORPUSCULAR HGB CONC 28.5 g/dL (31-35); MEAN CORPUSCULAR VOLUME 85.6 fL (81-99); MONOCYTES # (AUTO) 2.6 (0.2-0.8); MONOCYTES % 9.3 % (4.4-11.3); NEUTROPHILS % 78.2 % (38.7-80.0); PLATELET COUNT 132 x10e3/uL (140-360); RED CELL DISTRIBUTION WIDTH 28.2 % (11.7-14.4)
[2020-04-02 17:27] LABS: ALBUMIN 1.7 g/dL (3.5-5.0); ALBUMIN/GLOBULIN RATIO 0.3 (0.8-2.0); ANION GAP 24.2 mmol/L (8-16); CALCIUM 8.7 mg/dL (8.4-10.2); CREATININE, SERUM 5.96 mg/dL (0.57-1.11); POTASSIUM 5.2 mmol/L (3.5-5.1)
--- NOTE | 2020-04-02 18:01 | Progress Note ---
DATE: 04/02/2020 Amina Dong is a 49-year-old female, who was referred to me for evaluation of retroperitoneal lymphadenopathy as well as lung metastases. There was an attempt to do biopsies, however, because of the body habitus, I was told that they could not do it. The patient also showed some cirrhotic liver morphology with splenomegaly, multiple pulmonary nodules approximately 1.1 cm. Multiple enlarged retroperitoneal and iliac lymph nodes, this was repeat CAT scan of the abdomen and pelvis on 03/27/2020. The multiple discussions were carried out with Dr. Bro Flores: 1. We needed diagnosis, but because of the body habitus, we may not be able to do a biopsy. 2. Once the diagnosis is made, the staging will have to be done, which will require a PET scan. 3. Once the diagnosis is confirmed whether this is epithelial cancer and/or lymphoma, the treatment will be again. The treatment is going to be systemic chemotherapy only. Highly unlikely that this may shirt turner to be lymphoma as the CEA which is a marker for epithelial tumors is only 2. LDH on the other hand, which is a marker for lymphoma is high at 744. This was discussed on the phone with the mother today as the nurse outreach case manager had dialed the number, I again suggest the patient to be a hospice candidate and I have enumerated this again today to the mother, she is going to have a 2nd opinion. The patient claims that she was at [facility] before and she did not get proper treatment at [facility] and she is requesting the transferred to [place]. I will confine myself to Hematology/Oncology only. My recommendations remain exactly the same. MD CHRIS Victor/MODL /[id number] cc: Bro Flores MD
--- NOTE | 2020-04-02 18:15 | NUR ---
Dr Spears notified of Lactic Acid, no new orders received at this time.
--- NOTE | 2020-04-02 19:00 | NUR ---
BedSide report received. Patient in bed noted Lethargic with HOB elevated. PUPILS 3mm and Sluggish. Patient getting Dialysis at this time. TECH at bedside. VSS. Safety Maintained. Will continue to monitor.
[2020-04-02 21:16] LABS: LYMPHOCYTES % (MANUAL) 7 % (19-48); MONOCYTES % (MANUAL) 6 % (3.4-9.0); NEUTROPHILS % (MANUAL) 86 % (40-74); PLATELET ESTIMATE ADEQUATE; PLATELET MORPHOLOGY COMMENT NORMAL; RBC MORPHOLOGY COMMENT NORMAL
[2020-04-03] VITALS (19 sets, daily range): BP systolic 96–116; BP diastolic 49–69
[2020-04-03] MEDS: LEVOTHYROXINE SODIUM 75 MCG TAB PO SCH (06:00)
[2020-04-03] MEDS: LEVOTHYROXINE SODIUM 100 MCG TAB PO SCH (06:00)
[2020-04-03] MEDS: CEFTRIAXONE SOD 1 GM/NS 50 ML 50 ML IV SCH ×2 (06:16→19:05)
[2020-04-03] MEDS: INSULIN LISPRO 100 UNIT/1 ML 3ML VIAL SQ SCH ×4 (07:30→21:15)
[2020-04-03 08:31] LABS: ANION GAP 24.7 mmol/L (8-16); CALCIUM 8.7 mg/dL (8.4-10.2); CREATININE, SERUM 4.56 mg/dL (0.57-1.11); POTASSIUM 4.7 mmol/L (3.5-5.1)
[2020-04-03 08:36] LABS: BASOPHILS # (AUTO) 0.2 (0.0-0.1); BASOPHILS % 0.6 % (0.0-1.0); EOSINOPHILS % 0.1 % (0.0-6.0); HEMATOCRIT 30.6 % (34.2-44.1); HEMOGLOBIN 8.3 g/dL (12.0-16.0); LYMPHOCYTES # (AUTO) 1.1 (1.0-3.2); LYMPHOCYTES % 4.2 % (18.0-39.1); MEAN CORPUSCULAR HEMOGLOBIN 23.3 pg (28-32); MEAN CORPUSCULAR HGB CONC 27.1 g/dL (31-35); MONOCYTES # (AUTO) 2.4 (0.2-0.8); MONOCYTES % 9.1 % (4.4-11.3); NEUTROPHILS # (AUTO) 21.3 (2.1-6.9); NEUTROPHILS % 79.3 % (38.7-80.0); PLATELET COUNT 157 x10e3/uL (140-360); RED BLOOD COUNT 3.56 x10e6/uL (3.6-5.1); RED CELL DISTRIBUTION WIDTH 26.5 % (11.7-14.4)
[2020-04-03 08:45] LABS: ALBUMIN 1.9 g/dL (3.5-5.0); ALBUMIN/GLOBULIN RATIO 0.4 (0.8-2.0)
[2020-04-03] MEDS: SODIUM BICARBONATE 650 MG TAB PO SCH ×2 (09:52→19:05)
[2020-04-03] MEDS: POLYETHYLENE GLYCOL 3350 17 GM PACK PO SCH (09:52)
[2020-04-03] MEDS: MIDODRINE HCL 5 MG TABLET PO SCH ×2 (09:52→19:04)
[2020-04-03] MEDS: LIDOCAINE 4% PATCH TP SCH (09:52)
[2020-04-03] MEDS: DOCUSATE SODIUM 100 MG CAP PO SCH ×2 (09:52→19:04)
[2020-04-03] MEDS: BACITRACIN/POLYMYXIN 30 GM OINT TP SCH (09:52)
[2020-04-03 10:29] LABS: LYMPHOCYTES % (MANUAL) 3 % (19-48); METAMYELOCYTES % (MANUAL) 1 % (0-0); MONOCYTES % (MANUAL) 17 % (3.4-9.0); MYELOCYTES % (MANUAL) 3 % (0-0); NEUTROPHILS % (MANUAL) 76 % (40-74); NUCLEATED RED BLOOD CELLS 8
[2020-04-03 10:30] LABS: ANISOCYTOSIS MODERATE
[2020-04-03 10:31] LABS: OVALOCYTES FEW; POLYCHROMASIA FEW
[2020-04-03 10:32] LABS: PLATELET ESTIMATE ADEQUATE; PLATELET MORPHOLOGY COMMENT FEW LARGE; RBC MORPHOLOGY COMMENT ABNORMAL
--- NOTE | 2020-04-03 12:40 | Progress Note ---
DATE: 04/03/2020 Renal Progress Note. SUBJECTIVE: Events over the past 24 hours have been noted. The patient is still in the ICU. She is quite lethargic. Sometimes, she just seems to be babbling. PHYSICAL EXAMINATION: VITAL SIGNS: Blood pressure 111/54, pulse 102. GENERAL: The patient is morbidly obese. The patient has a Eduardo catheter in the right neck area. CARDIOVASCULAR: Regular rate and rhythm. LUNGS: Decreased sounds at the bases bilaterally. ABDOMEN: Positive bowel sounds. The patient is morbidly obese. EXTREMITIES: No significant edema. LABORATORY RESULTS: White count is 26.8, hemoglobin and hematocrit 8 and 30 respectively. Sodium 140, potassium 4.7, chloride 101, bicarbonate 19, BUN and creatinine 35 and 4.5 respectively. IMPRESSION/PLAN: 1. Acute kidney injury. 2. Retroperitoneal lymphadenopathy. 3. Elevated light chains in urine. 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 5. Acute tubular injury. 6. Nodular diabetic glomerulosclerosis. 7. Arterial nephrosclerosis. The patient underwent dialysis yesterday. The patient still is in the same situation where we were working on getting a transfer to [facility], everything is in place basically from my understanding, they are just awaiting for a bed to open up over there. There is no need for dialysis today. The patient's ultimate prognosis seems to be very poor. The dialysis will likely be tomorrow, if the patient is still here tomorrow. Ather MD CINTHIA Carrillo/TRI /[id number]
--- NOTE | 2020-04-03 13:00 | Progress Note ---
DATE: 04/03/2020 SUBJECTIVE: Amina Dong is a 49-year-old female who was referred to me by Dr. Bro Flores for evaluation of retroperitoneal lymphadenopathy as well as lung metastases. These could not be biopsied by the interventional radiologist because of the body habitus. The patient's mother is demanding transfer to a higher level of care. I have spoken to the mother yesterday and the patient has been transferred to intensive care unit. Best supportive care to this lady with multiple massive retroperitoneal lymphadenopathy and lung metastases as a diagnosis has been difficult to make. The performance status is extremely poor. Since relatively the globulins are slightly high, I will also order immunoglobulins, however, this will be of academic interest also as I do not suspect multiple myeloma, lymphoma is still a possibility. Monoclonal gammopathy sometimes seen with lymphomas. Thank you very much for allowing me to participate in management of this patient. Hematologically, I do not have anything to offer today. I am awaiting the transfer this patient as per the demand of the mom. MD CHRIS Victor/TRI /[id number]
--- NOTE | 2020-04-03 13:46 | Diagnostic Imaging Report ---
Abdomen, one view AP INDICATION: ^NGT PLACEMENT ^[id number] ^1305 Comparison: CT dated 03/27/2020. Discussion: Tip and sidehole of the enteric tube identified projecting over the mid to distal stomach and the left upper quadrant and midline. Overlying soft tissues limit evaluation of the bowel loops. IMPRESSION: Tip and sidehole of the enteric tube projects over the mid to distal stomach. Signed by: Jerome Kirkpatrick MD on 04/03/2020 1:42 PM
--- NOTE | 2020-04-03 13:59 | NUR ---
Nutrition Intervention Note RD Recommendation(s) for Physician: -Recommend Vital AF 1.2 @ goal rate of 55 mL/hr through NG tube (provides 1584 kcal, 99 g protein, and 1071 mL water) -Water/fluid management per MD Plan of Care: RD following, monitoring for tolerance and adequacy, tube feed recommendation Nutrition reason for involvement: consult, follow up RD Assessment 04/03: Follow up. RD received consult. Pt was transferred to the ICU due to increased lethargy and hypotension. Pt continues to receive dialysis. Pt is currently NPO and NG tube placement is planned per RN. Recommendations provided. Will continue to monitor 03/31: Follow up. Pt lethargic and sleepy today, unable to answer questions. Received HD tx today. Pt with fluctuating po intake, 0-75% of meals- not meeting needs. Questionable wt gain since admit, recommend reweighing pt. Chart reviewed. Rec's provided. (03/26/20) Chart reviewed. Labs and meds reviewed. Pt is a 49 year old female admitted with acute renal failure, back pain, hyponatremia, rectoperitoneal lymphadenopathy, and sciatica. Dialysis is being discussed. Pt reports a decreased appetite for 2 weeks and has only been eating a few bites of food. Pt also mentioned she usually weighs 330 lbs. No N/V or chewing/swallowing issues noted. Pt declined the need for diet education and was not interested in a nutrition supplement. Will continue to monitor. Principal Problems/Diagnoses: acute renal failure, back pain, hyponatremia, rectoperitoneal lymphadenopathy, and sciatica PMH: diabetes, hypertension, hypothyroid GI: soft/large/round/distended/ascitic abdomen, last recorded BM 04/02 Skin: intact Labs: 04/03: Na 140, K 4.7, BUN 35, Cr 4.56, Glu 97, Ca 8.7. AST 74 03/31: Na 138, K 4.5, BUN 43, Cr 5.65, Gluc 120, Ca 8.6 (03/26) Na 130, K 5.5, BUN 60, Cr 4.0, Glu 109, Ca 8.7, (03/21) Phos 5.3 Meds: colace, miralax, antibiotic, IV iron, mannitol, levothyroxine, insulin, zofran Ht: 69 in Wt: 387 lbs (04/02) 375.25 lb (03/31) 330 lb (03/26) suspect fluid related or possible weight error BMI: 48.7 kg/m2 using wt of 330 lbs IBW:145 lb Malnutrition Evaluation (03/26/20) The patient does not meet criteria for a specified degree of malnutrition at this time. Will re-evaluate at follow-up as appropriate. Energy intake: <50% of estimated energy requirements for >5 days Weight loss: No weight loss indicated Fat loss: no loss identified per observation Muscle loss: no loss identified per observation Supporting Evidence: Fluid accumulation: trace edema Functional Status: not assessed Nutrition Prescription (Diet Order): NPO Estimated Nutritional Needs: 5520-6021 calories/day (22-25 kcal/kg IBW) 99-130 mg protein/day (1.5-2 g pro/kg IBW) Diet Adequacy: Not meeting calorie needs, Not meeting protein needs Tolerance: N/A, pt is NPO Diet Education Needs Assessment: Diet education not indicated at this time Nutrition Care Level: high Nutrition Diagnosis: Inadequate energy intake related to decreased ability to consume sufficient energy as evidenced by need for alternative means of nutrition. Goal: Patient will meet 75-100% of estimated needs by follow up Progress: not progressing Interventions: -Composition, rate, route, Collaboration with other providers Monitoring/Evaluation: -Total energy intake, Total protein intake, Formula/Solution, Weight change Signed: Glo Goldsmith RD, LD
[2020-04-03] MEDS: SODIUM FERRIC GLUCONATE COMPLX 125 MG in SODIUM CHLORIDE 0.9% 100 ML 100 ML IV SCH (14:04)
--- NOTE | 2020-04-03 16:49 | NUR ---
INFECTIOUS DISEASE PROGRESS NOTE DR. PAUL HULL REASON FOR CONSULTATION: Pneumonia, sepsis. HISTORY OF PRESENT ILLNESS: This patient, who is a 49-year-old white female, history of morbidly obese patient. According to the family, the patient was in her usual state of health until about a week or 2 ago when she had some back pain. She went to the emergency room center. She was given antibiotic. Her creatinine was 1.77, apparently in August was 0.7. She had UTI few weeks ago. She took Macrobid, was not getting any better because of the pain. Apparently, she was given ciprofloxacin without any better. Two days before admission, she has increased abdominal pain and she came here, where she was admitted. CAT scan was done and showed she had retroperitoneal lymphadenopathy. The patient, who has been seen by Renal. The patient, who has history of morbidly obese patient, hypothyroidism, and diabetes. She was diagnosed with retroperitoneal lymphadenopathy. She was also diagnosed with xjqps-ao-ceiosor kidney failure. She has multiple lung nodules, cirrhotic liver, and splenomegaly. All these were diagnosed with this admission. The family had no idea that she had all these problems before she came here. There was concern that she had malignancy; however, attempt to do a CT-guided biopsy was unsuccessful because of her obesity. The patient also is having abdominal pain. The patient was supposed to go on dialysis, however, could not obtain a permanent IV access, but temporary IV access for dialysis was inserted. She is in severe pain. The patient became lethargic and agitated yesterday. Today, she is noncommunicative. LABORATORY DATA: per chart MEDICATIONS: per chart RADIOLOGY: reviewed PHYSICAL EXAMINATION: VS: per chart GENERAL: The patient is noncommunicative. HEENT: Normocephalic. atraumatic NECK: Supple. no JVD CV: s1, s2, no s3, s4 CHEST: Crackles. symmetric expansion ABDOMEN: Morbidly obese. soft EXT: moves all, no joint swelling NEURO: confused IMPRESSION: 1. Altered mental status, could be metabolic, concerned about sepsis, concerned about aspiration. 2. Morbidly obese patient. 3. Cirrhotic liver. 4. Splenomegaly. 5. Chronic kidney disease. 6. Pulmonary nodules reflecting probably metastases. Primary malignancy is unknown. At present time, could not be obtained because of obesity. PLAN[place] [facility] [place], in [place] Continue IV ABT Marian Tapia MSN, ORTHOPEDIC NURSE PRACTITIONER, [facility] Paul Hull M.D.
--- NOTE | 2020-04-03 19:00 | NUR ---
BedSide report received. Patient in bed noted Lethargic with HOB elevated AT 30 DEGREES. Patient aroused to Voice/NAME calling. Weakness noted in both Upper Extremities. PUPILS 3mm and Sluggish. NG noted in L nare receiving Vital 1.2 @ 10cc/hr RIJ NOTED WITH DRESSING DRY AND Intact. L scrape noted L knee. VSS Safety Maintained. Will Continue to monitor.
--- NOTE | 2020-04-03 19:35 | NUR ---
Report given on the to NEVILLE CAMARILLO.
--- NOTE | 2020-04-03 21:44 | NUR ---
TRANSFERRED TO [facility] BY [facility]. ACCOMPANIED BY EMT X 3, MANAGER PROTEIN IN USE,
--- NOTE | 2020-04-03 22:34 | NUR ---
SPOKE TO DHARMESH AT [employer] [facility] [facility] AND ARRANGED FOR BED PRINT AND PATTERN DESIGNER AND SHOWER CHAIR/COMMODE COMBO TO BE PICKED UP IN THE MORNING ON 04/04/20. SPOKE TO JUDY DÍAZ WITH [employer] AND HE SAID HE WILL BE HERE IN THE MORNING FOR PRINT AND PATTERN DESIGNER. CONFIRMATION # [id number].
== END 2020-04-03 21:46 | disposition short-term general hospital (02) | DRG 683 ==
LOC: ER 06:06 → ERHOLD 07:34 → MED/SURG3 08:37 → ICU 04-02 11:57
PROC: 0TB03ZX Excision of Right Kidney, Percutaneous Approach, Diagnostic (ICD-10-PCS; 2020-03-25)
PROC: 02HV33Z Insertion of Infusion Device into Superior Vena Cava, Percutaneous Approach (ICD-10-PCS; principal; 2020-03-26)
PROC: 02HV33Z Insertion of Infusion Device into Superior Vena Cava, Percutaneous Approach (ICD-10-PCS; 2020-03-27)
PROC: B5181ZA Fluoroscopy of Superior Vena Cava using Low Osmolar Contrast, Guidance (ICD-10-PCS; 2020-03-27)
PROC: B5181ZA Fluoroscopy of Superior Vena Cava using Low Osmolar Contrast, Guidance (ICD-10-PCS; 2020-03-27)
PROC: 5A1D70Z Performance of Urinary Filtration, Intermittent, Less than 6 Hours Per Day (ICD-10-PCS; 2020-03-27)
PROC: 5A1D70Z Performance of Urinary Filtration, Intermittent, Less than 6 Hours Per Day (ICD-10-PCS; 2020-03-28)
PROC: 30243N1 Transfusion of Nonautologous Red Blood Cells into Central Vein, Percutaneous Approach (ICD-10-PCS; 2020-03-29)
PROC: 5A1D70Z Performance of Urinary Filtration, Intermittent, Less than 6 Hours Per Day (ICD-10-PCS; 2020-03-29)
PROC: 5A1D70Z Performance of Urinary Filtration, Intermittent, Less than 6 Hours Per Day (ICD-10-PCS; 2020-03-31)
PROC: 5A1D70Z Performance of Urinary Filtration, Intermittent, Less than 6 Hours Per Day (ICD-10-PCS; 2020-04-02)
DX: N17.0 Acute kidney failure with tubular necrosis (principal); E87.1 Hypo-osmolality and hyponatremia; Z68.43 Body mass index [BMI] 50.0-59.9, adult; D68.9 Coagulation defect, unspecified; N39.0 Urinary tract infection, site not specified; E87.2 Acidosis; R18.8 Other ascites; Z68.42 Body mass index [BMI] 45.0-49.9, adult; C78.02 Secondary malignant neoplasm of left lung; C78.01 Secondary malignant neoplasm of right lung; N10 Acute pyelonephritis; E11.21 Type 2 diabetes mellitus with diabetic nephropathy; R59.0 Localized enlarged lymph nodes; M54.30 Sciatica, unspecified side; E66.01 Morbid (severe) obesity due to excess calories; K74.60 Unspecified cirrhosis of liver; C80.1 Malignant (primary) neoplasm, unspecified; I12.9 Hypertensive chronic kidney disease with stage 1 through stage 4 chronic kidney disease, or unspecified chronic kidney disease; N18.9 Chronic kidney disease, unspecified; E03.9 Hypothyroidism, unspecified; E11.22 Type 2 diabetes mellitus with diabetic chronic kidney disease; D50.9 Iron deficiency anemia, unspecified; R91.8 Other nonspecific abnormal finding of lung field; D72.823 Leukemoid reaction; R16.1 Splenomegaly, not elsewhere classified; M81.0 Age-related osteoporosis without current pathological fracture; Z90.49 Acquired absence of other specified parts of digestive tract; E87.5 Hyperkalemia; Z11.59 Encounter for screening for other viral diseases
CPT/HCPCS: 36415; 36556; 36600; 50200; 71045; 72100; 73521; 74018; 74176; 74470; 76770; 76937; 76942; 77001; 80048; 80053; 81001; 81015; 81050; 82378; 82550; 82553; 82570; 82728; 82784; 82805; 82948; 83520; 83540; 83605; 83615; 83735; 83880; 84100; 84156; 84165; 84166; 84466; 84484; 85025; 85610; 85730; 86021; 86039; 86160; 86704; 86706; 86850; 86900; 86920; 87040; 87086; 87340; 90962; 96372; 97139; 99152; 99251; 99284; C1769; J0696; J1200; J1644; J1940; J2150; J2250; J2270; J2405; J2916; J3010; J7030; J7040; J7050; P9016